=== PATIENT | female | born 1990 | race Caucasian/White ===

== ENCOUNTER → 2018-06-17 13:58 | Outpatient (CLI) | payer OTHER, SELFPAY ==
[2018-06-17 08:50] VITALS: BMI 25.4
[2018-06-19 15:49] LABS: HPV APTIMA, High Risk Negative (Negative)
== END ==
PROVIDERS: Referring Provider Nurse Practitioner Women's Health; Visit Provider Nurse Practitioner Women's Health
DX: Z12.4 Encounter for screening for malignant neoplasm of cervix (principal)
CPT/HCPCS: 87624; 88175; G0145

== ENCOUNTER → 2018-07-02 14:33 | Outpatient (CLI) | payer OTHER, SELFPAY ==
[2018-06-17 08:50] VITALS: BMI 25.4
--- NOTE | 2018-07-02 14:35 | US_ITS ---
STUDY: ULTRASOUND TRANSVAGINAL CLINICAL: Female, 28 years old. Pelvic pain TECHNIQUE: Transabdominal and Transvaginal (Transvaginal imaging performed for enhanced visualization of uterus and endometrium, and posterior adnexal structures). COMPARISON: None. FINDINGS: Uterus is retroflexed tilted toward the left, 6.9 x 4.9 x 3.4 cm, normal myometrial echotexture. Endometrium 3 mm, normal echotexture. Normal cervix. The right ovary measures 30 x 28 x 17 mm, appropriate vascular flow, several follicles present some of which are aligned in a string of pearls pattern along the periphery of the ovary. This could potentially be a manifestation of polycystic ovary syndrome. There is no right adnexal mass, suspicious cyst or free fluid. Left ovary 32 x 27 x 19 mm, appropriate vascular flow, several follicles, dominant follicle 1.3 cm. Multiple follicles aligned along the peripheral subserosal margin of the ovary. There is no left adnexal mass, suspicious cyst or free fluid. No cul-de-sac free fluid. US/Pelvic (Non ) IMPRESSION: Multi-follicular features of the ovaries. Nonspecific. Potentially a manifestation of polycystic ovary syndrome requiring correlation for other signs and symptoms. No acute intrapelvic process is evident. Electronically Signed: Jesus Weathers MD at 12:27 EST Tel , Service support ,
--- NOTE | 2018-07-02 14:35 | US_ITS ---
STUDY: ULTRASOUND TRANSVAGINAL CLINICAL: Female, 28 years old. Pelvic pain TECHNIQUE: Transabdominal and Transvaginal (Transvaginal imaging performed for enhanced visualization of uterus and endometrium, and posterior adnexal structures). COMPARISON: None. FINDINGS: Uterus is retroflexed tilted toward the left, 6.9 x 4.9 x 3.4 cm, normal myometrial echotexture. Endometrium 3 mm, normal echotexture. Normal cervix. The right ovary measures 30 x 28 x 17 mm, appropriate vascular flow, several follicles present some of which are aligned in a string of pearls pattern along the periphery of the ovary. This could potentially be a manifestation of polycystic ovary syndrome. There is no right adnexal mass, suspicious cyst or free fluid. Left ovary 32 x 27 x 19 mm, appropriate vascular flow, several follicles, dominant follicle 1.3 cm. Multiple follicles aligned along the peripheral subserosal margin of the ovary. There is no left adnexal mass, suspicious cyst or free fluid. No cul-de-sac free fluid. US/Transvaginal Non- IMPRESSION: Multi-follicular features of the ovaries. Nonspecific. Potentially a manifestation of polycystic ovary syndrome requiring correlation for other signs and symptoms. No acute intrapelvic process is evident. Electronically Signed: Jesus Weathers MD at 12:27 EST Tel , Service support ,
--- OUTSIDE RECORDS SUMMARY | 2018-09-03 15:21 | XMS RPT_ITS ---
:1990 Author Organization OH[facility] Care Team Providers Name Role Phone TAE HILARIO Referring Unavailable [place] Attending Unavailable [place] Attending Unavailable Chris, Kylie Referring Unavailable Primay Care Physicia, No Primary Care Unavailable ChrisKylie Attending Unavailable [place], Kylie Referring Unavailable Shira Sims Primary Care Unavailable PROBLEMS PROBLEMS DATE TYPE CONDITION / CODE ATTENDING STATUS SOURCE 06/17/2018 Unknown Z12.4 - Encounter Kylie Perez Active [place] for screening for [facility] neoplasm of Repository cervix / Z12.4(ICD-10) 06/17/2018 Unknown R10.2 - Pelvic [place], Molly Active [place] and perineal pain [facility] / R10.2(ICD-10) Hospital Repository 04/04/2017 Active Deep dyspareunia NA Active [facility] / N94.12(ICD-10) Other [place] Repository 08/26/2017 Active Pelvic and NA Active [facility] perineal pain / Other [place] R10.2(ICD-10) Repository PROCEDURES PROCEDURES No Procedure Records FoundRESULTS RESULTS PELVIC (NON ) Observed: 07/02/2018 Status: F Source: [facility] 2[facility] [place] [address] [place] [address] Pelvic (Non ) MR#: [id number] Acct: [id number] Name: GEMA ROMERO Rep #: [id number] : 1990 F 28 From: Jesus Weathers MD PCP: Shira Sims Status: REG CLI Study: Pelvic (Non ) Date of Exam: 07/02/18 Exam# [id number] Ordering Dr: Kylie Perez HOGSHEAD ROLLER-Shayy STUDY: ULTRASOUND TRANSVAGINAL CLINICAL: Female, 28 years old. Pelvic pain TECHNIQUE: Transabdominal and Transvaginal (Transvaginal imaging performed for enhanced visualization of uterus and endometrium, and posterior adnexal structures). COMPARISON: None. FINDINGS: Uterus is retroflexed tilted toward the left, 6.9 x 4.9 x 3.4 cm, normal myometrial echotexture. Endometrium 3 mm, normal echotexture. Normal cervix. The right ovary measures 30 x 28 x 17 mm, appropriate vascular flow, several follicles present some of which are aligned in a string of pearls pattern along the periphery of the ovary. This could potentially be a manifestation of polycystic ovary syndrome. There is no right adnexal mass, suspicious cyst or free fluid. Left ovary 32 x 27 x 19 mm, appropriate vascular flow, several follicles, dominant follicle 1.3 cm. Multiple follicles aligned along the peripheral subserosal margin of the ovary. There is no left adnexal mass, suspicious cyst or free fluid. No cul-de-sac free fluid. US/Pelvic (Non ) IMPRESSION: Multi-follicular features of the ovaries. Nonspecific. Potentially a manifestation of polycystic ovary syndrome requiring correlation for other signs and symptoms. No acute intrapelvic process is evident. Electronically Signed: Jesus Weathers MD at 12:27 EST Tel , Service support , CC: Shira Sims; ANNY Perez Adventure Therapist: Signed TRANSVAGINAL Observed: 07/02/2018 Status: F Source: [place] NON- 2:35 PM [facility] Imaging Services [address] [place] [address] Transvaginal Non- MR#: [id number] Acct: [id number] Name: GEMA ROMERO Rep #: [id number] : 1990 F 28 From: Jesus Weathers MD PCP: Shira Sims Status: REG CLI Study: Transvaginal Non- Date of Exam: 07/02/18 Exam# [id number] Ordering Dr: Kylie Perez HOGSHEAD ROLLER-C STUDY: ULTRASOUND TRANSVAGINAL CLINICAL: Female, 28 years old. Pelvic pain TECHNIQUE: Transabdominal and Transvaginal (Transvaginal imaging performed for enhanced visualization of uterus and endometrium, and posterior adnexal structures). COMPARISON: None. FINDINGS: Uterus is retroflexed tilted toward the left, 6.9 x 4.9 x 3.4 cm, normal myometrial echotexture. Endometrium 3 mm, normal echotexture. Normal cervix. The right ovary measures 30 x 28 x 17 mm, appropriate vascular flow, several follicles present some of which are aligned in a string of pearls pattern along the periphery of the ovary. This could potentially be a manifestation of polycystic ovary syndrome. There is no right adnexal mass, suspicious cyst or free fluid. Left ovary 32 x 27 x 19 mm, appropriate vascular flow, several follicles, dominant follicle 1.3 cm. Multiple follicles aligned along the peripheral subserosal margin of the ovary. There is no left adnexal mass, suspicious cyst or free fluid. No cul-de-sac free fluid. US/Transvaginal Non- IMPRESSION: Multi-follicular features of the ovaries. Nonspecific. Potentially a manifestation of polycystic ovary syndrome requiring correlation for other signs and symptoms. No acute intrapelvic process is evident. Electronically Signed: Jesus Weathers MD at 12:27 EST Tel , Service support , CC: Shira Sims; ANNY Perez Adventure Therapist: Signed PAP IG HPV APTIMA Collected: 06/17/2018 Status: F Source: [place] 16/18,45 9:30 AM [facility] [place] Order Comment: CYTOLOGY INFORMATION: - CLINICAL INFORMATION: - DATE LMP/MENOPAUSE: - COLLECTION VIAL: Thin Prep Vial - EVP BUSINESS DEVELOPMENT SOURCE: CERVICAL - COLLECTION TECHNIQUE: BRUSH/SPATULA Specimen Comment: [id number] Specimen Comment: Source.............Cervix Specimen Comment: No. of containers..01 ThinPrep Vial TYPE CODE TESTS RESULT OUT OF RANGE REFERENCE UNITS LAB L7400.0800 . Normal DIAGN Comment Result Comment: NEGATIVE FOR INTRAEPITHELIAL LESION AND MALIGNANCY. LAB L7400.0900 . Normal ADEQ Comment Result Comment: Satisfactory for evaluation. Endocervical and/or squamous metaplastic cells (endocervical component) are present. LAB L7400.1400 . Normal PERFORM Comment Result Comment: Katherine Duong, Winter Sports Manager LAB L7400.2575 . Normal TEST METHOD Comment Result Comment: This liquid based ThinPrep(R) pap test was screened with the use of an image guided system. LAB L7400.2600 . Normal . COMM LAB L7400.2700 . Normal PAPSMR Comment Result Comment: The Pap smear is a screening test designed to aid in the detection of premalignant and malignant conditions of the uterine cervix. It is not a diagnostic procedure and should not be used as the sole means of detecting cervical cancer. Both false-positive and false-negative reports do occur. LAB L7400.2760 Negative Normal HPV APTIMA, Negative HR Result Comment: This test detects fourteen high-risk HPV types (16/18/31/33/35/39/45/ 51/52/56/58/59/66/68) without differentiation. Performed at: [address] [id number] Rubber Extrusion Machine Operator: Ana Rivera MD, Phone: [phone] Performed at: =G - [facility] [place], [place] [id number] Rubber Extrusion Machine Operator: Ana Rivera MD, Phone: [phone] Performed By: #### L7400.0280 #### [facility] (refer to report for specific site) refer to report for address and phone number UMBRELLA TIPPER OFFICE VISIT Observed: 06/17/2018 Status: F Source: [place] REPORT 9:23 AM [facility] [place] [place] [facility] [address] [place] [address]. [address] [place] [address] OFFICE VISIT Date of Service: 06/17/18 MR#: [id number] Acct: [id number] Name: GEMA ROMERO Rep #: [id number] : 1990 Provider: ANNY Perez Age/Sex: 28/F Location: [facility] Status: Signed Intake Vital Signs06/17/18 Height 5 ft 3 in 06/17/18 Weight: 144 lb 06/17/18 Body Mass Index (BMI) 25.4 06/17/18 Blood Pressure 128/88 H Intake Visit Reasons: PELVIC PAIN, ABNORMAL BLEEDING Backup Operator Required: No Is patient in pain?: No Allergies No Known Allergies Allergy (Verified 06/17/18 08:44) Medications etonogestrel 68 mg subdermal implant 1 implant SUBDERMAL ONCE 06/17/18 [History Confirmed 06/17/18] Is last menstrual period known: Yes Last Menstral Period: 05/26/18 Post menopausal: No Patient : No : No PFSH Family History Grandmother Breast cancer Father Heart disease Social History Smoking Status: Never smoker alcohol intake: current alcohol intake frequency: holidays/special occasions only substance use type: does not use caffeine: Yes what type of physical activity do you participate in: walking frequency: 1-2 times per week seatbelt use: sometimes do you feel safe at home: Yes 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 Has nexplanon and needs removed October 2018. Has had irregular bleeding since placement and wants removed. She is also having pelvic pain off and on X 2 years. States varies in severity and also can occur with intercourse. and denies STD concern Last EVP BUSINESS DEVELOPMENT exam about 3 years ago in Telephone. Female Reproductive History Last Menstral Period: 05/26/18 Pregancy History 2 Elective abortions Hx Para 2 Spontaneous abortions Past Pregnancies Del. DatName GA/WeeksOutcome Route Bt WeigInfant GLabor LgAnesthesDel LocaProviderFOB e ht en ia tn 07/27/13Keegan 42 live birNSVD 7lbs 11oMale epiduralMedina [facility] Delivery Date: 07/13/15 On 06/17/18 @ 08:50 Elaina Baum No issues during or delivery. Delivery Date: 07/27/13 On 06/17/18 @ 08:49 Elaina Baum No issues during or delivery. ROS Const Constitutional: Reports system reviewed and no additional complaints, except as docu Cardio Card: Reports system reviewed and no additional complaints, except as docu Resp Resp: Reports system reviewed and no additional complaints, except as docu GI GI: Denies abdominal pain or change in bowel habits : Reports as per HPI and pelvic pain Exam Const General: cooperative, no acute distress Nutritional Appearance: well nourished Orientation: oriented x3 HENMT Head: normal to inspection Ears: hearing grossly normal bilaterally Nose: external nose normal Eyes General: appearance normal, both eyes and all related structures Neck Neck: normal visual inspection Neck mass: No Thyroid: thyroid normal Resp Effort AND Inspection: normal respiratory effort GI Palpation: soft, nontender External Female Exam: normal external appearance, normal appearance of the urethra Urethra: normal appearance of the urethra Speculum Exam - Vagina: normal appearance of the vagina, normal vaginal discharge Speculum Exam - Cervix: normal appearance of the cervix Bimanual Exam- Vagina AND Uterus: normal bimanual exam, uterine size normal, uterine shape normal, uterus non-tender Bimanual Exam- Adnexa, other: normal adnexae, no adnexal masses, adnexae non-tender Assessment AND Plan Problems 1. Encounter for gynecological examination with abnormal finding Z01.411 2. Pap smear for cervical cancer screening Z12.4 3. General counselling and advice on contraception Z30.09 4. Pelvic pain R10.2 5. Irregular menses N92.6 Plan Completed breast and pelvic exam Reviewed diet and exercise Pap thin prep pap with HPV ULtrasound Contraception arrange removal of nexplanon with Dr. Mcgarry. Will use condoms in interim. Discussed other contraceptive options but will wait on US results. RTO 1 year, prn with problems Kylie Perez FOOD SERVICE ASSOCIATE Orders Orders: Coding Level of Care Code Off vis,new,prev 18-39yrs Diagnoses Encounter for gynecological examination with abnormal finding Z01.411 Gynecological examination findings: abnormal findings PRESENT Pap smear for cervical cancer screening Z12.4 General counselling and advice on contraception Z30.09 Pelvic pain R10.2 Irregular menses N92.6 06/17/18 0923 <Electronically signed by Kylie HARRISON> Date Kylie HARRISON Cosigner Signature: Date (if applicable) CC: US DOPPLER COMPLETE Observed: 08/26/2017 Status: F Source: [place] 8:26 AM CLINIC OTHER CAMPUS REPOSITORY * * *Final Report* * * DATE OF EXAM: Aug 26 2017 8:26AM [place] 1033 - US DOPPLER COMPLETE / PROCEDURE REASON: multiple diagnoses * * * * Physician Interpretation * * * * EXAMINATION: TRANSVAGINAL PELVIC ULTRASOUND HISTORY: Pain TECHNIQUE: Sonography of the pelvis was performed by transvaginal technique. Images were obtained and stored in a permanent archive. M: UFP_1 COMPARISON: 04/15/2017 ultrasound RESULT: Uterus size: 6.5 x 3.5 x 3.4 cm -Orientation: Retroverted -Myometrium: 3 x 2 x 2 mm nonshadowing hyperechoic density adjacent to anterior endometrium at region of junction of body and fundus. -Endometrial echo complex: 0.5 cm -Cervix: normal Right ovary: 2.6 x 2.0 x 2.9 cm Normal sonographic appearance. Arterial and venous flow is present throughout the ovary on color Doppler imaging with normal spectral waveforms. Left ovary: 2.4 x 1.7 x 2.3 cm Normal sonographic appearance. Arterial and venous flow is present throughout the left ovary on color Doppler imaging with normal spectral waveforms. Pelvis free fluid: None. IMPRESSION: History millimeter hyperechoic focus adjacent to endometrium may represent a small myometrial calcification. Exam otherwise unremarkable. Adventure Therapist: [facility] Transcribe Date/Time: Aug 26 2017 8:48A Dictated by : MANSOOR FLORES MD This examination was interpreted and the report reviewed and electronically signed by: MANSOOR FLORES MD on Aug 26 2017 8:55AM EST [id number] US FEMALE PELVIS Observed: 08/26/2017 Status: F Source: [place] TRANSVAG 8:26 AM CLINIC OTHER CAMPUS REPOSITORY * * *Final Report* * * DATE OF EXAM: Aug 26 2017 8:26AM U 1060 - US FEMALE PELVIS TRANSVAG / PROCEDURE REASON: multiple diagnoses * * * * Physician Interpretation * * * * EXAMINATION: TRANSVAGINAL PELVIC ULTRASOUND HISTORY: Pain TECHNIQUE: Sonography of the pelvis was performed by transvaginal technique. Images were obtained and stored in a permanent archive. M: UFP_1 COMPARISON: 04/15/2017 ultrasound RESULT: Uterus size: 6.5 x 3.5 x 3.4 cm -Orientation: Retroverted -Myometrium: 3 x 2 x 2 mm nonshadowing hyperechoic density adjacent to anterior endometrium at region of junction of body and fundus. -Endometrial echo complex: 0.5 cm -Cervix: normal Right ovary: 2.6 x 2.0 x 2.9 cm Normal sonographic appearance. Arterial and venous flow is present throughout the ovary on color Doppler imaging with normal spectral waveforms. Left ovary: 2.4 x 1.7 x 2.3 cm Normal sonographic appearance. Arterial and venous flow is present throughout the left ovary on color Doppler imaging with normal spectral waveforms. Pelvis free fluid: None. IMPRESSION: History millimeter hyperechoic focus adjacent to endometrium may represent a small myometrial calcification. Exam otherwise unremarkable. Adventure Therapist: [facility] Transcribe Date/Time: Aug 26 2017 8:48A Dictated by : MANSOOR FLORES MD This examination was interpreted and the report reviewed and electronically signed by: MANSOOR FLORES MD on Aug 26 2017 8:55AM EST [id number] Observed: 08/19/2017 Status: COMPLETED Source: [place] 12:00 AM [facility] REPOSITORY Telephone (OBGMEM) SARAH ROMEROLEE Julia ([id number]) 1990 F Date Time Provider Department 08/19/17 TAE HILARIO OBLEVI During your visit today, we recorded the following information about you: Zoraida Olivo Psr 08/19/2017 11:34 AM Signed Patient is calling today to advise she is still having pain regarding her bilateral ovarian cysts. Patient had an ultrasound in April. Please advise. Zoraida Olivo Psr Zoraida Olivo Psr 08/23/2017 8:59 AM Signed Patient is calling again today to discuss her pain and what she should do. Zoraida Olivo Psr Tae Hilario MD 08/23/2017 1:59 PM Signed Patient did not keep f/u appointment after last visit. Previous hx of cysts and ruptured cysts and dyspareunia. Nexplanon in for 1 more year. Plan: Please sched pelvic U/S for evaluatuion. Anaprox for pain, script sent in. Patient may do phone f/u for u/s results. Tae Hilario MD The following approved medication requests have been transmitted electronically. Signed Prescriptions Disp Refills Naproxen Sodium (ANAPROX DS) 550 mg tablet 40 tablet 2 Sig: Take 1 tablet by mouth twice daily with meals. FOR PAIN. Authorizing Provider: TAE HILARIO MD Jennifer M Sim Psr 08/23/2017 3:28 PM Signed Spoke to patient. She wanted to know if she should leaf size picker the meds. Advised as written below and scheduled for an ultrasound on Saturday08-26-17. Tae Hilario MD 08/26/2017 11:16 PM Signed Please notify the patient that her ultrasound is negative. There are no ovarian cysts or evidence of free fluid. She can schedule a follow-up as needed. Thank you Tae Hilario M.D. Allergies As of Date: 08/19/2017 (No Known Allergies) Date Reviewed: 06/18/2017 Reviewed by: Zoraida (Rn) LORENA Jama - Fully Assessed Reason for Visit: Ovarian Cyst [288] Primary Visit Diagnosis:Adnexal pain [R10.2] Other Visit Diagnosis:Deep dyspareunia [N94.12] Order(s): FEMALE PELVIS TRANSVAG [[id number]] Order #: [id number] FUTURE Naproxen Sodium (ANAPROX DS) 550 mg tabletTake 1 tablet by mouth twice daily with meals. FOR PAIN.Disp: 40 tabletRfl: 2 Prescriptions as of 08/19/2017 Sig: NAPROXEN SODIUM 550 MG TABLET Take 1 tablet by mouth twice * Problem List As Of Date 08/19/2017 Noted Resolved Supervision of other normal [Z34.80] INVALID FOR*09/03/2013 Irregular uterine contractions [O62.2] INVALID FOR*07/25/2013 related carpal tunnel syndrome, antep*INVALID FOR* BV (bacterial vaginosis) [N76.0, B96.89] INVALID FOR*12/03/2014 Post-dates [O48.0] INVALID FOR* Gestational hypertension w/o significant protei*INVALID FOR*12/03/2014 Left ovarian cyst [N83.202] INVALID FOR* Dyspareunia [JEL7100] INVALID FOR*12/03/[address] [Z97.5] INVALID FOR* Anorgasmia of female [F52.31] INVALID FOR* Deep dyspareunia [N94.12] INVALID FOR* Prescriptions ordered this encounter Disp Refills Start End NAPROXEN SODIUM 550 MG TABLET 40 t* 2 08/23/2017 Route: ORAL Sig: Take 1 tablet by mouth twice daily with meals. FOR PAIN. Encounter Status:Closed by ALISSA HOWARD on 08/23/17 ALLERGIES ALLERGIES DATE TYPE / CODE NAME / CODE REACTION SEVERITY SOURCE 06/17/2018 Drug No Known Unknown [facility] Allergy/416 Allergies/E92638 Hospital 766629(SNOM 0388(RXNORM) Repository ED CT) Drug NO KNOWN [facility] Class/15510 ALLERGIES Other [place] 1003(SNOMED Repository CT) ENCOUNTERS ENCOUNTERS ADMIT/DISCHARGE ACCOUNT ADMITTING ENCOUNTER LOCATION SOURCE NUMBER CLASS 07/02/2018 [id number] Ambulatory [facility] ing:US Repository 06/17/2018 [id number] [facility] ing:LABSPEC Repository 06/17/2018/06/17/19 [id number] Ambulatory BMSBuilding:B [place] [address] Repository 08/26/2017 [id number] Ambulatory [facility] Other [place] Repository PAYERS PAYERS ENCOUNTER GUARANTOR PAYER SUBSCRIBER SOURCE 07/02/2018 GEMA Dumont Primary GEMA N [place] [id number] Insurance:MEDICAL MILLERDOB: [facility] [id number] Hospital [address]Mbt: (330) Number: Repository [phone] () [id number] Date:[id number] [address] [place], [place] [address]WP: 07/02/2018 Secondary NOT GIVENUNK Satya Insurance:SELF PAY [facility] Number: Effective Repository Date:2018-06-30 06/17/2018 GEMA Dumont Primary GEMA N [place] [id number] Insurance:MEDICAL MILLERDOB: [facility] [id number] Hospital [address]Avk: (330) Number: Repository [phone] () [id number] Date:[id number] [address] [place] [id number]: 06/17/2018 Secondary NOT GIVENUNK [place] Insurance:SELF PAY [facility] Number: Effective Repository Date:2018-06-17 06/17/2018 GEMA Dumont Primary GEMA N [place] [id number] Insurance:MEDICAL MILLERDOB: [facility] [id number] Hospital [address]Lha: (330) Number: Repository [phone] ) [id number] Date:[id number] [address] [address]TE: 06/17/2018 Secondary NOT GIVENUNK [place] Insurance:SELF PAY [facility] Number: Effective Repository Date:2018-06-17
== END ==
PROVIDERS: Family Provider Family Medicine; PCP Family Medicine; Referring Provider Nurse Practitioner Women's Health; Visit Provider Nurse Practitioner Women's Health
DX: R10.2 Pelvic and perineal pain (principal)
CPT/HCPCS: 76830; 76856; 93976

== ENCOUNTER 2021-06-26 12:26 | Outpatient (CLI) | payer OTHER, SELFPAY ==
--- NOTE | 2021-06-26 12:31 | US_ITS ---
STUDY: ULTRASOUND OF THE FEMALE PELVIS - COMPLETE REASON FOR EXAM: Female, 31 years old. AUB LMP: 06/16/2021. TECHNIQUE: Transabdominal and Transvaginal TECHNICAL QUALITY: Adequate. COMPARISON: Comparison is made with prior study dated 07/02/2018. FINDINGS: The uterus is retroverted and is in a midline position. The uterus measures 8.8 cm x 4.8 cm x 3.7 cm. There is a Nabothian cyst of the cervix. The endometrium measures 7.7 mm in thickness, and is heterogeneous (striated). There is no demonstrated endometrial mass. There is no demonstrated myometrial mass. I.U.D. - The patient does not have an I.U.D. The right ovary is visualized. The right ovary measures 3.3 cm x 2.2 cm x 1.8 cm. There is no right ovarian cyst or ovarian mass. There is no visualized right adnexal mass or complex lesion. There is normal arterial and normal venous vascularity. The left ovary is visualized. The left ovary measures 3.9 cm x 2.8 cm x 2.1 cm. There is no left ovarian cyst or ovarian mass. There is no visualized left adnexal mass or complex lesion. There is normal arterial and normal venous vascularity. There is no fluid in the cul-de-sac. The pre void volume of the bladder was 406 ml. US/Pelvic (Non ) IMPRESSION: Normal female pelvis. Electronically Signed: Yang Pryor MD at 13:41 EST , Service support ,
--- NOTE | 2021-06-26 12:31 | US_ITS ---
STUDY: ULTRASOUND OF THE FEMALE PELVIS - COMPLETE REASON FOR EXAM: Female, 31 years old. AUB LMP: 06/16/2021. TECHNIQUE: Transabdominal and Transvaginal TECHNICAL QUALITY: Adequate. COMPARISON: Comparison is made with prior study dated 07/02/2018. FINDINGS: The uterus is retroverted and is in a midline position. The uterus measures 8.8 cm x 4.8 cm x 3.7 cm. There is a Nabothian cyst of the cervix. The endometrium measures 7.7 mm in thickness, and is heterogeneous (striated). There is no demonstrated endometrial mass. There is no demonstrated myometrial mass. I.U.D. - The patient does not have an I.U.D. The right ovary is visualized. The right ovary measures 3.3 cm x 2.2 cm x 1.8 cm. There is no right ovarian cyst or ovarian mass. There is no visualized right adnexal mass or complex lesion. There is normal arterial and normal venous vascularity. The left ovary is visualized. The left ovary measures 3.9 cm x 2.8 cm x 2.1 cm. There is no left ovarian cyst or ovarian mass. There is no visualized left adnexal mass or complex lesion. There is normal arterial and normal venous vascularity. There is no fluid in the cul-de-sac. The pre void volume of the bladder was 406 ml. US/Transvaginal Non- IMPRESSION: Normal female pelvis. Electronically Signed: Yang Pryor MD at 13:41 EST , Service support ,
== END 2021-06-26 23:59 | disposition short-term general hospital (02) ==
LOC: OPUS 12:26
PROVIDERS: PCP Family Medicine; Referring Provider Nurse Practitioner Women's Health; Visit Provider Nurse Practitioner Women's Health
DX: N92.1 Excessive and frequent menstruation with irregular cycle (principal)
CPT/HCPCS: 76830; 76856

== ENCOUNTER 2022-03-06 07:10 | Day surgery (SDC) | payer OTHER, SELFPAY ==
--- NOTE | 2022-03-05 16:00 | HP.PCM_ITS ---
History and Physical Date of Admission: 03/06/22 Acct: [id number] Name:GEMA POWERS History and Physical for 03/06/22 Intake Vital Signs ? 01/25/2211:03 01/25/2211:03 Height 5 ft 3 in 5 ft 3 in Weight: 134 lb 6 oz ? BMI 23.8 ? BP 122/81 H ? Intake Visit Reasons:?Consult Tubal Dinkey Brakeman Required: No Is patient in pain?: No Allergies No Known Allergies Allergy (Verified 01/25/22 11:03) Medications NK? 01/25/22 [History Confirmed 01/25/22] Post menopausal: No Patient : No : No PFSH Medical History? Contraceptive management Family History? Grandmother Breast cancerFather Heart disease Social History? Smoking Status:? Never smoker alcohol intake:? current alcohol intake frequency: holidays/special occasions only substance use type:? does not use caffeine:? Yes what type of physical activity do you participate in:? walking frequency:? 1-2 times per week seatbelt use:? sometimes do you feel safe at home:? 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 who presents for discussion about heavy menses and desire for permanent sterilization. She is not interested in OCPs or anthything that will cause weight gain Pregancy History ? ? ? 2 ? Elective abortions ? Hx Para ? ? ? 2 ? Spontaneous abortions ? Hx # Term Pregnancies ? Ectopic pregnancies ? Hx # Pregnancies ? Multiple births ? # of living children ? Past Pregnancies Del. Date Name GA/Weeks Outcome Route Bth Weight Infant Gen Labor Lgth Anesthesia Del Locatn Provider FOB 07/27/13 Conrad 42 live - full term 7lbs 11oz Male ? epidural [facility] Dr. Tom Campos 07/13/15 Racquel 41 live - full term 7lbs 15oz Female ? epidural [facility] Dr. Tom Campos Delivery Date: 07/27/13? Last Updated by: Elaina Baum ? ? ? No issues during or delivery. Delivery Date: 07/13/15? Last Updated by: Elaina Baum ? ? ? No issues during or delivery. ROS Const ROS Unobtainable: All systems reviewed & are unremarkable except as noted in H Resp Resp: Reports system reviewed and no additional complaints, except as documented; Denies cough GI GI: Reports as per HPI Psych Psych: Reports system reviewed and no additional complaints, except as documented Exam Const General: cooperative, healthy appearing, comfortable and no acute distress Resp Effort & Inspection: normal respiratory effort Skin General: no rashes or lesions noted Psych Appearance: grossly normal Speech and Movement: speech and movement normal Coding Level of Care Code Off vis,est,level 4 Diagnoses Contraceptive management? Z30.9 Menorrhagia with irregular cycle? N92.1 Assessment and Plan Assessment and Plan (1) Contraceptive management: ?Status:?Acute ?Comment: No PA required for Mirena device and placement.? call reference # [id number] (2) Menorrhagia with irregular cycle: ?Status:?Acute Plan After discussing the patient's diagnosis and treatment plan options, patient wishes to proceed with surgical management. Plan to proceed with a laparoscopic bilateral salpingectomy, placement of mirena iud. ?I have discussed with the patient the risks, benefits, and alternatives of the procedure which include but are not limited to risks of anesthesia, bleeding, infection, possible damage to bowel, bladder, or surrounding vasculature which could lead to additional surgery to evaluate any complications.? Patient agrees to procedure and wishes to proceed.? ACOG/uptodate references given for additional information regarding procedure.?
[2022-03-06 07:53] VITALS: BP 134/78; PULSE 71; RESP 16; TEMP 36.6; O2SAT 100; BMI 25.0
[2022-03-06 08:08] LABS: Internal QC Validated? YES +Cl - CLEAR BKGD; Pregnancy, Urine Negative Negative
[2022-03-06] MEDS: Lactated Ringers 1,000 ML 125 ML IV ×2 (08:15→09:30)
[2022-03-06 08:24] LABS: Hematocrit 38.9 % (37-47); Mean Corp Hgb Conc 33.4 g/dL (32-36); Mean Corpuscular Hgb 32.4 pg (27.0-32.0); Mean Platelet Vol. 9.2 fl (6.2-12.0); Platelet Count 312 K/mm3 (150-450); RBC Distribution Width CV 11.7 % (11.6-14.6); RBC Distribution Width SD 42.3 fl (35.1-43.9); Red Blood Count 4.01 M/mm3 (4.2-5.4)
--- NOTE | 2022-03-06 08:45 | FALS_PTH ---
PATIENT: GEMA ROMERO LOC: [facility] [place] U[place][id number] AGE/SX: 31/F ROOM: RE03/06/[address]: Dr. Olamide Guevara DO : 1990 BED: DIS: 03/06/2022 SPEC #: [id number] RECD: 03/06/22 11:53 STATUS: GINA REBridget #: [id number] ARJUN: 03/06/22 08:[address]: Olamide Guevara DEPT: SURGICAL PATHOLOGY RECD BY: Ashley Lynn ENTERED: 03/06/22 12:33 SP TYPE: FALL TUBES OTHR DR: Dr. Shira Sims DO Tissues: Fallopian tube Procedures: Surgery Specimen Level II Surgery Specimen Level IV HEADER OPERATION: Laparoscopic salpingectomy, Mirena intrauterine device insertion PRE-OP DIAGNOSIS: Contraceptive management, menorrhagia with irregular cycle TISSUE SUBMITTED: Bilateral fallopian tubes MICROSCOPIC DIAGNOSIS Right and left fallopian tubes, bilateral salpingectomies: Complete segments of fallopian tubes. One fallopian tube with benign paratubal cyst. AM:cici 03/07/2022 MICROSCOPIC DESCRIPTION Slides are reviewed. GROSS DESCRIPTION Received in fixative is one container labeled with the patient's name and designated bilateral fallopian tubes. The specimen consists of bilateral fallopian tubes including fimbrial ends measuring 5 cm in length and 0.8 cm in diameter and 6.5 cm in length and 0.5 cm in diameter. The fallopian tubes are not identified as right or left. One of the fallopian tubes show a paratubal cyst measuring 0.7 cm in greatest dimension. Sections reveal unremarkable cut surfaces. Physical Therapist Assistant sections are submitted in two cassettes as follows: 1 ? one fallopian tube and paratubal cyst, 2 ? second fallopian tube. / SJ:cici 03/06/2022 TC:5 CPT: 81996, 90406
--- NOTE | 2022-03-06 08:58 | DCINST_ITS ---
Discharge Instructions Diet Discharge Diet: No restrictions Activity Discharge Activity: Return to Normal Activity, May Not Drive (for two weeks or while taking narcotic pain medications.), May Shower and May Take a Tub Bath (in 7 days) May resume sexual activity in: 1 week Weight Bearing Status: Full weight bearing Dressing / Incision Call your doctor if you observe: Using more than 1 pad per hour, Shortness of breath, Chest pain and Uncontrolled pain Suture Line Care: Avoid Pulling/Pushing and Avoid Pinching/Bending Remove Dressing in: 1 week (if present) Cleanse incision/area with: Soap & Water and Keep Dressing Clean & Dry Follow Up Care Please Follow Up With: Olamide Guevara DO When: Call to make an appointment with your doctor for a follow up incision check in 1-2 weeks. Test Results: Test results from this visit will be discussed in further detail at your follow- up appointment, if applicable. Discharge Plan Admission Primary Reason for Your Visit: laparoscopic bilateral salpingectomy, placement of mirena IUD Attending Provider: Olamide Guevara Primary Care Provider: Shira Sims Discharge Orders/Prescriptions Prescriptions: New ibuprofen 800 mg tablet 800 mg PO Q8H PRN (Reason: pain) 7 Days Qty: 15 0RF oxycodone-acetaminophen [Percocet] 5-325 mg tablet 1 tab PO Q4H PRN (Reason: pain) 7 Days Qty: 14 0RF Referrals / Follow Up: Shira Sims DO [Primary Care Provider] - Disposition Disposition (needs filled in before D/C Order can be placed): Home, Self Care
--- NOTE | 2022-03-06 09:02 | OP.PCM_ITS ---
Operative Report Date of Procedure: 03/06/22 preoperative diagnosis: desires permanent sterilization, menorrhagia postoperative diagnosis: desires permanent sterilization, menorrhagia surgery: laparoscopic bilateral salpingectomy, placement of Mirena IUD surgeon: Dr. Olamide Guevara DO School Psychology Specialist: lanie Harris EBL: 5 cc Anesthesia: general endotracheal intubation Complications: none Details of the procedure: Patient was taken in the operating room and was placed under general anesthesia was prepped and draped in normal sterile fashion in the dorsal lithotomy position. Bladder was drained of clear urine and SCDs were on preoperatively. Uterus was sounded and a uterine manipulator was placed after dilating. Attention was then paid to the abdominal portion of the procedure and the umbilicus was elevated and injected with Marcaine. A 5mm trocar was inserted into the abdomen under direct visualization using the laparoscope. The abdomen was insufflated with CO2 gas and a left lower quadrant 5 mm port and a mini grasper were placed suprapubically under direct visualization. Uterus was well visualized and bilateral fallopian tubes identified and bilateral tubes were elevated and transecting across the mesosalpinx and the attachment to the uterine corpus bilaterally the tubes were removed without complication. Excellent hemostasis was noted. Fallopian tubes were removed through the lower port sites without complication. Liver and upper abdomen were visualized notably within normal limits and no other gross abnormalities were seen in the abdomen. All instruments removed from the abdomen after gas was desufflated. Port sites were closed with 3-0 Monocryl Steri's and op sites were applied. Attention was turned back to the vagina. A weighted speculum was placed in the vagina and the manipulator was removed. The uterus was sounded to 8 cm. The mirena IUD was inserted in the usual sterile fashion up to the fundus. The strings were trimmed 3 cm from the cervix and the single toothed tenaculum was removed. All instruments removed from the vagina and patient was awoken and taken recovery in stable condition. Multi Select Codes Urinary/Genital Urinary/Genital CPT Codes: 50218 Laproscopic BS/O and Other Procedure See Report (placement of mirena Intrauterine device)
[2022-03-06] MEDS: Sugammadex Sodium 200 MG/2 ML VIAL IV (09:28)
[2022-03-06 09:35] VITALS: BP 121/85; BP 134/78; PULSE 72; RESP 16; TEMP 36.2; O2SAT 100
[2022-03-06 09:45] VITALS: BP 121/85; BP 134/78; PULSE 80; RESP 16; O2SAT 100
--- NOTE | 2022-03-06 09:53 | SUR.PHASEI ---
WRITTEN WORK EXCUSE GIVEN TO PATIENT FROM DR. FOX; 03/06/22- 03/11/22, RETURN 03/12/2022
[2022-03-06 10:00] VITALS: BP 114/74; BP 134/78; PULSE 64; RESP 16; O2SAT 100
[2022-03-06 10:12] VITALS: BP 116/74; BP 134/78; PULSE 67; RESP 16; TEMP 35.8; O2SAT 100
[2022-03-06 10:31] VITALS: BP 134/78
== END 2022-03-06 10:39 | disposition home or self-care (01) ==
LOC: SDC 07:21 → AC 07:21
PROVIDERS: PCP Family Medicine; Referring Provider Obstetrics & Gynecology; Visit Provider Obstetrics & Gynecology
PROC: (CPT 58661; principal; 2022-03-06 08:30)
DX: Z30.2 Encounter for sterilization (principal); Z30.430 Encounter for insertion of intrauterine contraceptive device; N92.1 Excessive and frequent menstruation with irregular cycle; N83.8 Other noninflammatory disorders of ovary, fallopian tube and broad ligament
CPT/HCPCS: 58661; 58300; 81025; 85027; 88302; 88305; J7120; J2405

== ENCOUNTER → 2022-05-17 | Outpatient (CLI) | payer OTHER, SELFPAY | END | disposition home or self-care (01) | LOC: LABSPEC 16:17 | PROVIDERS: PCP Family Medicine; Referring Provider Nurse Practitioner Women's Health; Visit Provider Nurse Practitioner Women's Health | DX: N89.8 Other specified noninflammatory disorders of vagina (principal) | CPT/HCPCS: 87070; 87205 ==

== ENCOUNTER → 2023-04-18 | Outpatient (CLI) | payer OTHER, SELFPAY | END | disposition home or self-care (01) | LOC: LABSPEC 13:07 | PROVIDERS: PCP Family Medicine; Referring Provider Nurse Practitioner Women's Health; Visit Provider Nurse Practitioner Women's Health | DX: N89.8 Other specified noninflammatory disorders of vagina (principal) | CPT/HCPCS: 87070; 87205 ==

== ENCOUNTER → 2025-04-27 | Outpatient (CLI) | payer OTHER, SELFPAY ==
--- OUTSIDE RECORDS SUMMARY | 2025-04-27 19:22 | XMS RPT_ITS | CCD ---
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 Shira Sims Primary Care Provider Bethany, Dr. Shira Salinas Referring Provider Dr. Olamide Guevara Attending Provider [phone] Dr. Olamide Guevara Referring Provider [phone] Dr. Olamide Guevara Other Provider Dr. Shira Sims Primary Care Provider Dr. Olamide Guevara Attending Provider [phone] Dr. Olamide Guevara Referring Provider [phone] Dr. Olamide Guevara Other Provider Dr. Shira Sims Referring Provider Chris MCCORMICK, CHRISTY Espinal Attending Provider [phone] Dr. Shira Sims Primary Care Provider Dr. Shira Sims Referring Provider Chris CARGO BROKER, ANNY-Shayy Espinal Attending Provider [phone] Shira Sims Primary Care Unavailable Shira Sims Referring Unavailable Olamide Guevara Attending UnavailEli Campoverde Attending Unavailable Shira Sims Referring Unavailable Shira Sims Primary Care Unavailable Shira Sims Referring Unavailable Shira Sims Primary Care Unavailable Kylie Perez Attending Unavailable Kirkland, Kylie Referring Unavailable Esterle, Shira M Primary Care Unavailable Kirkland, Kylie Attending Unavailable Esterle, Shira M Primary Care Unavailable Chris, Kylie Referring Unavailable Kirkland, Kylie Attending Unavailable Chris, Kylie Referring Unavailable Kirkland, Kylie Attending Unavailable Esterle, Shira M Primary Care Unavailable Esterle, Shira M Primary Care Unavailable Esterle, Shira M Referring Unavailable Kirkland, Kylie Attending Unavailable Esterle , Shira Salinas Primary Care Provider Madai SANCHEZ, Maykel Stratton Primary Care Provider Madai SANCHEZ, Maykel Stratton Primary Care Provider Shira Sims MD Primary Care Provider ESTERLE, SHIRA M Primary Care Unavailable ESTERLE, SHIRA M Primary Care Unavailable CONKLE-LAGROUX, MICHAEL Attending Unavaila ble MANNY, SVETLANA Prado Referring Unavailable ESTERLE, SHIRA M Primary Care Unavailable MIKULSKI, JAILENE Referring Unavailable ESTERLE, SHIRA M Primary Care Unavailable SELF Referring Unavailable ESTERLE, SHIRA M Primary Care Unavailable MIKULSKI, JAILENE Attending Unavailable ESTERLE, SHIRA M Primary Care Unavailable ESTERLE, SHIRA M Primary Care Unavailable ESTERLE, SHIRA M Primary Care Unavailable CONKLE-MILLYX, MICHAEL Attending Unavaila ble ESTERLE, SHIRA Primary Care Unavailable ESTERLE, SHIRA Primary Care Unavailable Medications Current Medications Medication Drug Class(es) Dates Sig (Normalized) Sig (Original) amoxicillin 875 mg / clavulanate 125 mg oral tablet (1 source) Penicillin-class Antibacterial Start: 4 End: 4 take 1 tablet by mouth twice daily amoxicillin-clavulan ate potassium (AUGMENTIN) 875-125 mg per tablet Indications: Acute sinusitis, recurrence not specified, unspecified location Take 1 tablet by mouth two times a day for 7 days. 14 tablet 0 08/07/2023 08/14/2023 Active Comment on above: Take 1 tablet by jewell th two times a day for 7 days. amphetamine aspartate 3.75 mg / amphetamine sulfate 3.75 mg / dextroamphetamine saccharate 3.75 mg / dextroamphetamine sulfate 3.75 mg oral tablet (2 sources) Central Nervous System Stimulant Start: 2 take 1 tablet by mouth once daily Dextroamphetamine-Am phetamine (Adderall) 15 mg tablet Active 15 MG PO DAILY April 25, 2022 12:00am benzonatate 200 mg oral capsule (3 sources) Non-narcotic Antitussive Start: 4 take 1 capsule by mouth three times daily as needed Benzonatate 200 mg capsule Indications: Acute sinusitis, recurrence not specified, unspecified location Take 1 capsule by mouth three times a day as needed. 30 capsule 08/07/2023 Active Comment on above: Take 1 capsule by mo [facility] three times a day as needed. levonorgestrel 0.082278 mg/hr intrauterine system (7 sources) Progestin, Progestin-containi ng Intrauterine Device Start: 2 levonorgestrel (MIRENA) 21 mcg/24 hours (8 yrs) 52 mg IUD Levonorgestrel (Mirena) 20 mcg/24 hours (8 yrs) 52 mg intrauterine device Active 1 DEVICE INTRA-UTER ONCE April 25, 2022 12:00am as a single dose 04/25/2022 Active Comment on above: Levonorgestrel (Elvie na) 20 mcg/24 hours (8 yrs) 52 mg intrauterine device Active 1 DEVICE INTRA-UTER ONCE April 25, 2022 12:00am as a single dose lisdexamfetamine dimesylate 30 mg oral capsule (5 sources) Central Nervous System Stimulant Start: 3 take 2 capsules by mouth once daily lisdexamfetamine (VYVANSE) 30 mg capsule 2 CAPS ORALLY ONCE A DAY 30 DAYS 04/12/2023 Active Comment on above: 2 CAPS ORALLY ONCE A DAY 30 DAYS Completed/Discontinued Medications Medication Drug Class(es) Dates Sig (Normalized) Sig (Original) acetaminophen 325 mg / oxyCODONE hydrochloride 5 mg oral tablet (3 sources) Opioid Agonist Start: 03-06-2022 End: 04-25-2022 take 1 tablet by mouth every four hours Oxycodone-Acetamin ophen (Percocet) 5-325 mg tablet Discontinued 1 TABLET PO Q4H 14 7 March 06, 2022 April 25, 2022 11:25am cephalexin 500 mg oral capsule (2 sources) Cephalosporin Antibacterial Start: 02-01-2025 End: 02-04-2025 take 1 capsule by mouth three times daily cephALEXin (KEFLEX) 500 mg capsule Take 1 capsule by mouth three times a day for 3 days. 9 capsule 02/01/2025 02/04/2025 Levonorgestrel-Ethi nyl Estrad (3 sources) Progestin, Estrogen, Progestin-containin g Intrauterine Device Start: 07-09-2018 End: 10-20-2020 take 1 tablet by mouth once daily Levonorgestrel-Eth inyl Estrad (Aviane) 0.1-20 mg-mcg tablet Discontinued 1 TABLET PO DAILY July 09, 2018 12:00am October 20, 2020 7:12am Start: 07-09-2018 End: 10-20-2020 take 1 tablet by mouth once daily Levonorgestrel-Ethinyl Estrad (Aviane) 0.1-20 mg-mcg tablet Discontinued 1 TABLET PO DAILY July 09, 2018 1:00am October 20, 2020 8:12am etonogestrel 68 mg drug implant (3 sources) Progestin Start: 06-17-2018 End: 07-09-2018 Etonogestrel (Nexplanon) 68 mg implant Discontinued 1 IMPLANT Subdermal ONCE June 17, 2018 12:00am July 09, 2018 9:12am fluconazole 150 mg oral tablet (6 sources) Azole Antifungal Start: 09-15-2019 End: 10-20-2020 Fluconazole Discontinued 150 MG PO .COMPLEX 2 April 14, 2020 4:28pm October 20, 2020 6:14am 150 mg PO take one po now and repeat in 3 days ibuprofen 800 mg oral tablet (3 sources) Nonsteroidal Anti-inflammatory Drug Start: 03-06-2022 End: 04-25-2022 take 800 mg by mouth every eight hours Ibuprofen Discontinued 800 MG PO Q8H 15 7 March 05, 2022 11:00pm April 25, 2022 11:25am Problems Active Problems Problem Classification Problem Date Documented Date Episodic/Chronic Abdominal pain (6 sources) Pain in pelvis; Translations: [Pelvic and perineal pain] Onset: 3 04-18-2023 Episodic Disorders usually diagnosed in infancy, childhood, or adolescence (2 sources) Attention deficit hyperactivity disorder, predominantly inattentive type; Translations: [Other specified behavioral and emotional disorders with onset usually occurring in childhood and adolescence] 04-25-2022 Chronic Fracture of upper limb (4 sources) Closed fracture thumb distal phalanx ; Translations: [Nondisplaced fracture of distal phalanx of right thumb, initial encounter for closed fracture] Onset: 5 02-03-2025 Episodic Heart valve disorders (2 sources) Heart murmur; Translations: [Cardiac murmur, unspecified] 07-23-2024 Episodic Menstrual disorders (6 sources) Menometrorrhagia; Translations: [Excessive and frequent menstruation with irregular cycle] Onset: 2 Chronic Miscellaneous mental health disorders (5 sources) 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; 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] Onset: 7 04-04-2017 Chronic Nausea and vomiting (3 sources) Nausea with vomiting, unspecified; Translations: [Nausea] Onset: 5 Episodic Other connective tissue disease (1 source) Pain in right thumb; Translations: [Pain in right finger(s)] 02-04-2025 Episodic Other female genital disorders (5 sources) Deep pain on intercourse; Translations: [Deep dyspareunia] Onset: 7 04-04-2017 Chronic Other female genital disorders (2 sources) Other specified noninflammatory disorders of vagina; Translations: [Other specified symptoms associated with female genital organs] Onset: 3 Episodic Other injuries and conditions due to external causes (1 source) Other injury of unspecified body region, initial encounter; Translations: [Skin avulsion] Onset: 5 Episodic Other skin disorders (1 source) Night sweats Onset: 5 Episodic Other upper respiratory infections (1 source) Acute sinusitis; Translations: [Acute sinusitis, unspecified] 08-07-2023 Episodic Sprains and strains (2 sources) Sprain of metacarpophalangeal joint of right thumb, initial encounter; Translations: [Sprain of metacarpophalangeal (joint) of hand] 02-03-2025 Episodic Thyroid disorders (2 sources) Nontoxic multinodular goiter; Translations: [Nontoxic multinodular goiter] Onset: 8 Chronic Past or Other Problems Problem Classification Problem Date Documented Date Episodic/Chronic Contraceptive and procreative management (10 sources) Patient encounter status; Translations: [Encounter for contraceptive management, unspecified] Onset: 6 Episodic Early or threatened labor (4 sources) Irregular uterine contractions; Translations: [False labor, unspecified] Onset: 4 Resolved: 4 07-25-2013 Episodic Hypertension complicating ; childbirth and the puerperium (4 sources) -induced hypertension; Translations: [Gestational [-induced] hypertension without significant proteinuria, third trimester] Onset: 4 Resolved: 5 12-03-2014 Episodic Inflammatory diseases of female pelvic organs (4 sources) Bacterial vaginosis; Translations: [Acute vaginitis] Onset: 4 Resolved: 5 12-03-2014 Episodic Nonmalignant breast conditions (4 sources) Lump in upper outer quadrant of left breast; Translations: [Unspecified lump in the left breast, upper outer quadrant] Episodic Other complications of (5 sources) Carpal tunnel syndrome; Translations: [Diseases of the nervous system complicating , unspecified trimester] Onset: 4 07-01-2013 Episodic Other female genital disorders (4 sources) Dyspareunia; Translations: [Dyspareunia] Onset: 5 Resolved: 5 12-03-2014 Chronic Other nutritional; endocrine; and metabolic disorders (1 source) Abnormal weight loss; Translations: [Abnormal weight loss] Onset: 5 Episodic Other and delivery including normal (4 sources) Normal ; Translations: [Encounter for supervision of other normal , unspecified trimester] Onset: 3 Resolved: 4 09-03-2013 Episodic Ovarian cyst (5 sources) Cyst of left ovary; Translations: [Unspecified ovarian cyst, left side] Onset: 5 10-21-2014 Episodic Prolonged (5 sources) Post-term ; Translations: [Post-term ] Onset: 4 07-13-2015 Episodic Unclassified (1 source) Sprain of metacarpophalangeal (MCP) joint of right thumb, initial encounter 02-03-2025 Results Test Name Value Interpretation Reference Range Facility AMB CARD Physician Progress Noteon 04-19-2025 AMB CARD Physician Progress Note STEPHANY ROMERO :1990 [facility]:[id number] Registration Date:04/19/2025 Assessment/Plan Patient is a 34-year-old female with a strong family history of premature coronary artery disease presenting for cardiovascular risk assessment. This Visit Diagnosis 1. Family history of premature CAD/(Z82.49: Family history of ischemic heart disease and other diseases of the circulatory system) 2. Will plan for a stress test and follow her accordingly 3. Needs no further cardiac workup otherwise. She will continue to exercise as before and she will get her cholesterol checked by her family doctor. Chief Complaint dr sims family history heart attack father father had narrow arteries of the heart leg swlling History of Present Illness Disclaimer: The content of this note was generated by an artificial intelligence (AI) language model version 25.Q4.0.0 Patient consented to the use of AI Mrs. Romero is a pleasant 34-year-old lady with significant family history of coronary disease is here for cardiac evaluation and follow-up. Family History of Heart Disease The patient's father had a myocardial infarction at age 50, underwent five-vessel coronary artery bypass grafting, and subsequently required annual stenting procedures. He was a smoker and experienced significant lower extremity swelling toward the end of his life, and was thought to have heart failure and possible diabetes, though he was never formally diagnosed with diabetes. He a year and a half ago. The patient's cousin in January and had a history of atrial fibrillation and leg swelling, which has contributed to the patient's concern about her own cardiac risk. Her ECG looks normal. Personal Health and Risk Factors The patient denies any history of diabetes, hypertension, chest pain, jaw pain, shoulder pain, dyspnea, or palpitations. She reports an episode of excessive lower extremity swelling after a recent car trip to [place], which was more pronounced than her usual mild swelling after travel. She is physically active, running several miles per week and recently completing a half marathon without difficulty. She does not smoke, drinks alcohol socially, and weighs 122 pounds. Medication Reconciliation What How Much When Instructions Unchanged amphetamine-dextroamphetamin e (Adderall 10 mg oral tablet) Oral TWICE A DAY Unchanged amphetamine-dextroamphetamin e (Adderall 30 mg oral tablet) Oral TWICE A DAY Cardiac History No qualifying data available. Physical Exam NECK: JVP is not elevated: Good carotid pulses and no bruit CVS; Normal heart sounds. No murmur and no gallop. No rub BP: 128/76 mm Hg LUNGS: No rhonchi and no wheeze: Clear breath sounds ADOMEN: Benign EXTREMITIES: Good distal pulses. No edema of legs Vitals & Measurements Temperature Temporal (F): 98.5 degF (04/19/25 08:53:00) Apical Heart Rate: 73 bpm (04/19/25 08:53:00) Height/Length Measured: 157 cm (04/19/25 08:53:00) Weight Measured: 55 kg (04/19/25 08:53:00) Body Mass Index Measured: 22.31 kg/m2 (04/19/25 08:53:00) Weight Measured - lbs2: 122 lb (04/19/25 08:53:00) Height/Length Measured - in2: 62 in (04/19/25 08:53:00) Body Mass Index Measured English2: 22.31 kg/m2 (04/19/25 08:53:00) BSA: 1.55 m2 (04/19/25 08:53:00) Ht/Wt Measurement Refused by Patient?2: No (04/19/25 08:53:00) . Initial Depression Screen Score: 0 (04/19/25 08:53:00) Is the patient ambulatory (mobile): Yes (04/19/25 08:53:00) Have you had a fall within the past: No (04/19/25 08:53:00) Have you had 2 or more falls in the past: No (04/19/25 08:53:00) Electronically Co-Signed by: ALYCIA XIAO MD on 04/19/2025 19:23 EST Normal [facility] ALLIED HEALTHon 03-16-2025 ALLIED HEALTH HNO ID: [id number] Author: OLAMIDE BROCK RT(R) Service: Radiology Author Type: Technologist Type: Allied Health Filed: 03/16/2025 03:28 Note Text: Radiology Service Progress Note DATE OF SERVICE: March 16, 2025 TIME: 3:27 AM PATIENT IDENTITY VERIFICATION COMPLETED USING TWO (2) STANDARD IDENTIFIERS: Name and Date of confirmed by patient verbally. FALL SCREENING: Has the patient had 2 falls in the last year or 1 fall with injury or currently using an Ambulatory Assistive Device (Walker, Cane, Wheelchair, Crutches, etc.)? Emergency Room Patient: Screened in ED PATIENT GENDER DATA: Assigned female at . status: : No status: NO. PATIENT RELEVANT IMPLANT DATA REVIEWED: Yes PATIENT PRESENTS WITH AN IMPLANTABLE OR ATTACHED HURL SHAKER: No ALLERGIES: Reviewed and unchanged CONTRAST ALLERGY: NO. EXAM: CT -CONTRAST INDUCED NEPHROPATHY RISK FACTORS: Not applicable CREATININE: Creatinine Date Value Ref Range Status 03/16/2025 0.59 0.58 - 0.96 mg/dL Final 06/18/2017 0.59 0.51 - 0.95 mg/dL Final 03/26/2014 0.62 0.51 - 0.95 mg/dL Final Estimated Glomerular Filtration Rate Date Value Ref Range Status 03/16/2025 120 >=60 mL/min/1.73m? Final Comment: Estimated Glomerular Filtration Rate (eGFR) is calculated using the 2020 CKD-EPI creatinine equation. This equation utilizes serum creatinine, sex, and age as parameters. The creatinine assay has traceable calibration to isotope dilution-mass spectrometry. Refer to KDIGO guidelines for clinical interpretation. In patients with unstable renal function, e.g. those with acute kidney injury, the eGFR may not accurately reflect actual GFR. P.O.C.T. RESULTS: POC done: Yes, See Lab Tab March 16, 2025 TREATMENT: N/A PERIPHERAL IV DATA: Inpatient - refer to LDA documentation RADIOLOGY DEPARTMENT: CT; Exam(s) Completed: Abdomen/Pelvis . Anesthesia: No SIGNATURE: RT Earnest(R) PATIENT NAME: Stephany ROMERO DATE: March 16, 2025 TIME: 3:27 AM Normal [facility] Basic metabolic 2000 panelon 03-16-2025 Anion gap [Moles/Vol] 16 mmol/L High 8-15 [facility] Comment on above: Order Comment: Speci men Type: BLOOD SPECIMENOrdering Facility: [facility] Address: [address] [place] [address] Performed By: #### 2 4321-2 ####[facility] [place] LABCLIA [id number] [place] [address] [place] Calcium [Mass/Vol] 9.7 mg/dL Normal 8.5-10.2 [facility] Comment on above: Order Comment: Speci men Type: BLOOD SPECIMENOrdering Facility: [facility] Address: [address] [place] [address] Performed By: #### 2 4321-2 ####[facility] [place] LABCLIA [id number] [place] [address] [place] Chloride [Moles/Vol] 100 mmol/L Normal 98-107 [facility] Comment on above: Order Comment: Speci men Type: BLOOD SPECIMENOrdering Facility: [facility] Address: [address] [place] [address] Performed By: #### 2 4321-2 ####[facility] [place] LABCLIA [id number] [place] [address] [place] CO2 [Moles/Vol] 20 mmol/L Low 22-30 [facility] Comment on above: Order Comment: Speci men Type: BLOOD SPECIMENOrdering Facility: [facility] Address: [address] [place] [address] Performed By: #### 2 4321-2 ####[facility] [place] LABCLIA [id number] [place] [address] [place] Creatinine [Mass/Vol] 0.59 mg/dL Normal 0.58-0.96 [facility] Comment on above: Order Comment: Speci men Type: BLOOD SPECIMENOrdering Facility: [facility] Address: [address] [place] [address] Performed By: #### 2 4321-2 ####[facility] [place] LABCLIA [id number] [place] [address] [place] eGFRcr SerPlBld CKD-EPI 2020 120 mL/min/1.73m??? Normal >=60 [facility] Comment on above: Order Comment: [place] Type: BLOOD SPECIMENOrdering Facility: [facility] Address: [address] [place] [address] Result Comment: Elisabeth mated Glomerular Filtration Rate (eGFR) is calculated using the 2020 CKD-EPI creatinine equation. This equation utilizes serum creatinine, sex, and age as parameters. The creatinine assay has traceable calibration to isotope dilution-mass spectrometry. Refer to KDIGO guidelines for clinical interpretation. In patients with unstable renal function, e.g. those with acute kidney injury, the eGFR may not accurately reflect actual GFR. Performed By: #### 2 4321-2 ####[facility] LABCLIA [id number] [place] [address] [place] Glucose [Mass/Vol] 109 mg/dL High 74-99 [facility] Comment on above: Order Comment: [place] Type: BLOOD SPECIMENOrdering Facility: [facility] Address: [address] [place] [address] Result Comment: The [place] Diabetes Association (ADA) provides guidance for cutoff values for fasting glucose and random glucose. The ADA defines fasting as no caloric intake for at least 8 hours. Fasting plasma glucose results between 100 to 125 mg/dL indicate increased risk for diabetes (prediabetes). Fasting plasma glucose results greater than or equal to 126 mg/dL meet the criteria for diagnosis of diabetes. In the absence of unequivocal hyperglycemia, results should be confirmed by repeat testing. In a patient with classic symptoms of hyperglycemia or hyperglycemic crisis, random plasma glucose results greater than or equal to 200 mg/dL meet the criteria for diagnosis of diabetes. Reference: Standards of Medical Care in Diabetes 2016, [place] Diabetes Association. Diabetes Care. 2016.39(Suppl 1). Performed By: #### 2 4321-2 ####[facility] [employer] LABCLIA [id number] [place] [address] [place] Potassium [Moles/Vol] 3.7 mmol/L Normal 3.7-5.1 [facility] Comment on above: Order Comment: [place] Type: BLOOD SPECIMENOrdering Facility: [facility] Address: [address] [place] [address] Performed By: #### 2 4321-2 ####[facility] [place] LABCLIA [id number] [place] [address] [place] [address] [facility] [place] Sodium [Moles/Vol] 136 mmol/L Normal 136-144 [facility] Comment on above: Order Comment: Speci men Type: BLOOD SPECIMENOrdering Facility: [facility] Address: [address] [place] [address] Performed By: #### 2 4321-2 ####[facility] [place] LABCLIA [id number] [place] [address] [place] Urea nitrogen [Mass/Vol] 8 mg/dL Normal 7-21 [facility] Comment on above: Order Comment: Speci men Type: BLOOD SPECIMENOrdering Facility: [facility] Address: [address] [place] [address] Performed By: #### 2 4321-2 ####[facility] [place] LABCLIA [id number] [place] [id number] [place] [facility] [place] CBC W Auto Differential pane l (Bld)on 03-16-2025 Basophils (Bld) [#/Vol] 10*3/uL Normal <0.11 [facility] Comment on above: Order Comment: Speci men Type: BLOOD SPECIMENOrdering Facility: [facility] Address: [address] [place] [address] Performed By: #### 5 7021-8 ####[facility] [place] LABCLIA [id number] [place] [id number] [place] [facility] [place] Basophils/100 WBC (Bld) 0.2 % Normal [facility] Comment on above: Order Comment: Speci men Type: BLOOD SPECIMENOrdering Facility: [facility] Address: [address] [place] [address] Performed By: #### 5 7021-8 ####[facility] [place] LABCLIA [id number] [place] [address] [facility] Differential cell count method Nom (Bld) Auto Normal [facility] Comment on above: Order Comment: Speci men Type: BLOOD SPECIMENOrdering Facility: [facility] Address: [address] [place] [address] Performed By: #### 5 7021-8 ####[facility] [place] LABCLIA [id number] [facility] [place] [address] [place] Eosinophils (Bld) [#/Vol] 10*3/uL Normal <0.46 [facility] Comment on above: Order Comment: Speci men Type: BLOOD SPECIMENOrdering Facility: [facility] Address: [address] [place] [address] Performed By: #### 5 7021-8 ####[facility] [place] LABCLIA [id number] [facility] [place] [address] [facility] Eosinophils/100 WBC (Bld) 0.2 % Normal [facility] Comment on above: Order Comment: Speci men Type: BLOOD SPECIMENOrdering Facility: [facility] Address: [address] [place] [address] Performed By: #### 5 7021-8 ####[facility] [place] LABCLIA [id number] [facility] [place] [address] [facility] Erythrocyte distribution width (RBC) [Ratio] 11.7 % Normal 11.5-15.0 [facility] Comment on above: Order Comment: Speci men Type: BLOOD SPECIMENOrdering Facility: [facility] Address: [address] [place] [address] Performed By: #### 5 7021-8 ####[facility] [place] LABCLIA [id number] [facility] [address] [facility] Hematocrit (Bld) [Volume fraction] 43.5 % Normal 36.0-46.0 [facility] Comment on above: Order Comment: Speci men Type: BLOOD SPECIMENOrdering Facility: [facility] Address: [facility] [place] [address] Performed By: #### 5 7021-8 ####[facility] [place] LABCLIA [id number] [facility] [address] [place] Hemoglobin (Bld) [Mass/Vol] 14.9 g/dL Normal 11.5-15.5 [facility] Comment on above: Order Comment: Speci men Type: BLOOD SPECIMENOrdering Facility: [facility] Address: [address] [place] [address] Performed By: #### 5 7021-8 ####[facility] [place] LABCLIA [id number] [facility] [place] [address] [place] Immature granulocytes (Bld) [#/Vol] 0.03 10*3/uL Normal <0.10 [facility] Comment on above: Order Comment: Speci men Type: BLOOD SPECIMENOrdering Facility: [facility] Address: [address] [place] [address] Performed By: #### 5 7021-8 ####[facility] [place] LABCLIA [id number] [place] [address] [place] Immature granulocytes/100 WBC (Bld) 0.3 % Normal [facility] Comment on above: Order Comment: Speci men Type: BLOOD SPECIMENOrdering Facility: [facility] Address: [address] [place] [address] Performed By: #### 5 7021-8 ####[facility] [place] LABCLIA [id number] [place] [address] [place] Lymphocytes (Bld) [#/Vol] 1.51 10*3/uL Normal 1.00-4.00 [facility] Comment on above: Order Comment: Speci men Type: BLOOD SPECIMENOrdering Facility: [facility] Address: [address] [place] [address] Performed By: #### 5 7021-8 ####[facility] [place] LABCLIA [id number] [place] [address] [place] Lymphocytes/100 WBC (Bld) 14.2 % Normal [facility] Comment on above: Order Comment: Speci men Type: BLOOD SPECIMENOrdering Facility: [facility] Address: [address] [place] [address] Performed By: #### 5 7021-8 ####[facility] [place] LABCLIA [id number] [place] [address] [facility] MCH (RBC) [Entitic mass] 33.3 pg Normal 26.0-34.0 [facility] Comment on above: Order Comment: Speci men Type: BLOOD SPECIMENOrdering Facility: [facility] Address: [address] [place] [address] Performed By: #### 5 7021-8 ####[facility] LABCLIA [id number] [place] [address] [place] MCHC (RBC) [Mass/Vol] 34.3 g/dL Normal 30.5-36.0 [facility] Comment on above: Order Comment: Speci men Type: BLOOD SPECIMENOrdering Facility: [facility] Address: [address] [place] [address] Performed By: #### 5 7021-8 ####[facility] LABCLIA [id number] [address] [facility] MCV (RBC) [Entitic vol] 97.1 fL Normal 80.0-100.0 [facility] Comment on above: Order Comment: Speci men Type: BLOOD SPECIMENOrdering Facility: [facility] Address: [address] [place] [address] Performed By: #### 5 7021-8 ####[facility] LABCLIA [id number] [place] [address] [place] Monocytes (Bld) [#/Vol] 0.92 10*3/uL High <0.87 [facility] Comment on above: Order Comment: Speci men Type: BLOOD SPECIMENOrdering Facility: [facility] Address: [address] [place] [address] Performed By: #### 5 7021-8 ####[facility] LABCLIA [id number] [place] [address] [facility] Monocytes/100 WBC (Bld) 8.6 % Normal [facility] Comment on above: Order Comment: Speci men Type: BLOOD SPECIMENOrdering Facility: [facility] Address: [address] [place] [address] Performed By: #### 5 7021-8 ####[facility] [place] LABCLIA [id number] [place] [address] [place] Neutrophils (Bld) [#/Vol] 8.16 10*3/uL High 1.45-7.50 [facility] Comment on above: Order Comment: Speci men Type: BLOOD SPECIMENOrdering Facility: [facility] Address: [facility] [place] [address] Performed By: #### 5 7021-8 ####[facility] [place] LABCLIA [id number] [place] [address] [place] Neutrophils/100 WBC (Bld) 76.5 % Normal [facility] Comment on above: Order Comment: Speci men Type: BLOOD SPECIMENOrdering Facility: [facility] Address: [address] [place] [address] Performed By: #### 5 7021-8 ####[facility] [place] LABCLIA [id number] [place] [address] [place] Nucleated RBC (Bld) [#/Vol] Normal [facility] Comment on above: Order Comment: Speci men Type: BLOOD SPECIMENOrdering Facility: [facility] Address: [address] [place] [address] Performed By: #### 5 7021-8 ####[facility] [place] LABCLIA [id number] [place] [address] [place] Nucleated RBC/100 WBC (Bld) [Ratio] Normal [facility] Comment on above: Order Comment: Speci men Type: BLOOD SPECIMENOrdering Facility: [facility] Address: [address] [place] [address] Performed By: #### 5 7021-8 ####[facility] [place] LABCLIA [id number] [place] [address] [place] Platelet mean volume (Bld) [Entitic vol] 8.8 fL Low 9.0-12.7 [facility] Comment on above: Order Comment: Speci men Type: BLOOD SPECIMENOrdering Facility: [facility] Address: [address] [place] [address] Performed By: #### 5 7021-8 ####[facility] LABCLIA [id number] [place] [address] [facility] Platelets (Bld) [#/Vol] 394 10*3/uL Normal 150-400 [facility] Comment on above: Order Comment: Speci men Type: BLOOD SPECIMENOrdering Facility: [facility] Address: [address] [place] [address] Performed By: #### 5 7021-8 ####[facility] LABCLIA [id number] RBC (Bld) [#/Vol] 4.48 10*6/uL Normal 3.90-5.20 [facility] Comment on above: Order Comment: Speci men Type: BLOOD SPECIMENOrdering Facility: [facility] Address: [address] [place] [address] Performed By: #### 5 7021-8 ####[facility] LABCLIA [id number] [place] [address] [facility] WBC (Bld) [#/Vol] 10.66 10*3/uL Normal 3.70-11.00 [facility] Comment on above: Order Comment: Speci men Type: BLOOD SPECIMENOrdering Facility: [facility] Address: [address] [place] [address] Performed By: #### 5 7021-8 ####[facility] LABCLIA [id number] [place], [place] [address] [place] [address] CT ABD/PEL W IVCONon 07-[address] ABD/PEL W IVCON * * *Final Report* * * DATE OF EXAM: Mar 16 2025 3:25AM LD 0530 - CT ABD/PEL W IVCON / PROCEDURE REASON: Nausea/vomiting * * * * Physician Interpretation * * * * EXAMINATION: CT ABDOMEN AND PELVIS WITH IV CONTRAST CLINICAL HISTORY: RIGHT lower quadrant pain TECHNIQUE: CT of the abdomen and pelvis was performed using standard technique, scanning from just above the dome of the diaphragm to the symphysis pubis. MQ: CTAP_3 Contrast: IV: 100 ml of Omnipaque 350 : ml of CT Radiation dose: Integrated Dose-length product (DLP) for this visit = 398.02 mGy*cm. CT Dose Reduction Employed: Automated exposure control(AEC) and iterative recon COMPARISON: 10/05/2024 RESULT: No radiopaque gallstones. Intrauterine device. Urinary bladder wall thickening. Appendix not identified but no pericecal inflammation. No suspicious osseous lesion. Normal kidneys adrenal glands pancreas spleen liver aorta IVC. No ascites or bowel obstruction. Mild ascending colonic stool burden. IMPRESSION: 1. Appendix not identified but no pericecal inflammation or fluid dilated tubular structure 2. Mild ascending colonic stool burden 3. Urinary bladder wall thickening in the setting of incomplete distention may represent cystitis Auger Machine Offbearer: LOWELL Transcribe Date/Time: Mar 16 2025 5:19A Dictated by : JACINTO FINCH MD This examination was interpreted and the report reviewed and electronically signed by: JACINTO FINCH MD on Mar 16 2025 5:27AM EST [id number] Normal [facility] ECG COMPLETEon 03-16-2025 ECG COMPLETE Ventricular Rate : 7 6 BPM Atrial Rate : 76 BPM P-R Interval : 126 ms QRS Duration : 84 ms Q-T Interval : 386 ms QTC Calculation(Bazett) : 434 ms Calculated P Sarah : 78 degrees Calculated R Sarah : 84 degrees Calculated T Sarah : 72 degrees NORMAL SINUS RHYTHM MINIMAL VOLTAGE CRITERIA FOR LVH, MAY BE NORMAL VARIANT ( Sokolow-Saravia ) BORDERLINE ECG NO PREVIOUS ECGS AVAILABLE Confirmed by DO GUILLORY JESSICA ([id number]) on 03/16/2025 2:03:55 AM NAME : STEPHANY ROMERO PID : [id number] : 1990 Gender : Female Race : ORD : [id number] Procedure Date : Mar 16 2025 01:59:04 Edit Date : Mar 16 2025 02:04:01 Diagnosis: NORMAL SINUS RHYTHM MINIMAL VOLTAGE CRITERIA FOR LVH, MAY BE NORMAL VARIANT ( Sokolow-[place] ) BORDERLINE ECG NO PREVIOUS ECGS AVAILABLE Confirmed by DO GUILLORY JESSICA ([id number]) on 03/16/2025 2:03:55 AM Test Reason : Nausea with Vomiting Location : 150 : [place] Overread By : DO GUILLORY JESSICA Edited By : DO GUILLORY JESSICA Referred By : , Acquired by : BERNADETTE WINCHESTER [facility] ED NOTEon 03-16-2025 ED NOTE HNO ID: [id number] Author: PAPA SILVA RN Service: Emergency Medicine Author Type: Registered Nurse Type: ED Notes Filed: 03/16/2025 05:46 Note Text: Pt verbalizes understanding of discharge instructions. Denies further questions, comments, concerns at this time. Normal [facility] ED PROV NOTEon 03-16-2025 ED PROV NOTE HNO ID: [id number] Author: MICHAEL GUILLORY DO Service: Emergency Medicine Author Type: Physician Type: ED Provider Notes Filed: 03/16/2025 05:59 Note Text: ED Provider Note Patient Name: Stephany ROMERO : 1990 SERVICE DATE: 03/16/25 History Patient presents with: Nausea AND Vomiting Stephany ROMERO is a 34 year old female who presents with Nausea AND Vomiting. - Symptoms began yesterday at noon. - Severity: moderate - Timing: constant - Symptoms are associated with nothing. - Symptoms are not associated with abdominal pain, chest pain, chills, diarrhea, fever, shortness of breath, URI symptoms, dysuria,hematuria, flank pain. Patient presents with nausea and vomiting since noon yesterday. She states that she has had no diarrhea. No abdominal pain. She denies chest pain or shortness of breath. No dysuria or hematuria. No fever or chills. No unusual food intake prior to vomiting starting. No known sick contacts with similar symptoms. PAST MEDICAL HISTORY Diagnosis Date Hypertension Laceration of finger 07/22/2013 tip of finger, heal by 2* intention. Mental disorder depression off and on during this Nexplanon in place 10/31/[address] 01/11/2016 depression 2013 SAB (spontaneous ) ([facility]) Vaginal delivery ([facility]) 07/2013 vacuum delivery PAST SURGICAL HISTORY Procedure Laterality Date NONE FAMILY HISTORY Problem Relation Age of Onset Heart Father Breast Cancer Maternal Grandmother Diabetes Paternal Grandmother Social History[1] ALLERGIES No Known Allergies Review of Systems Constitutional: Negative for chills and fever. Respiratory: Negative for shortness of breath. Cardiovascular: Negative for chest pain. Gastrointestinal: Positive for nausea and vomiting. Negative for abdominal pain and diarrhea. Genitourinary: Negative for dysuria, flank pain and hematuria. Musculoskeletal: Negative for back pain. Skin: Negative for rash. Neurological: Negative for weakness and numbness. Psychiatric/Behavioral: Negative for agitation and confusion. Physical Exam Vitals [03/16/25 0139] BP Pulse Temp Temp src Resp SpO2 Weight Height 163/107 87 -- -- 16 100 % -- -- Physical Exam Vitals and nursing note reviewed. Constitutional: Appearance: She is not toxic-appearing or diaphoretic. HENT: Head: Normocephalic and atraumatic. Eyes: Conjunctiva/sclera: Conjunctivae normal. Cardiovascular: Rate and Rhythm: Normal rate and regular rhythm. Pulses: Normal pulses. Pulmonary: Effort: Pulmonary effort is normal. Breath sounds: Normal breath sounds. Abdominal: General: Abdomen is flat. Bowel sounds are normal. There is no distension. Palpations: Abdomen is soft. Tenderness: There is no abdominal tenderness. There is no right CVA tenderness, left CVA tenderness, guarding or rebound. Skin: General: Skin is warm and dry. Capillary Refill: Capillary refill takes less than 2 seconds. Findings: No rash. Neurological: General: No focal deficit present. Mental Status: She is alert and oriented to person, place, and time. GCS: GCS eye subscore is 4. GCS verbal subscore is 5. GCS motor subscore is 6. Psychiatric: Mood and Affect: Mood normal. Behavior: Behavior normal. Diagnostic Testing ED Labs Ordered and Reviewed BASIC METABOLIC PANEL - Abnormal; Notable for the following components: Result Value Ref Range Glucose 109 (*) 74 - 99 mg/dL CO2 20 (*) 22 - 30 mmol/L Anion Gap 16 (*) 8 - 15 mmol/L All other components within normal limits COMPLETE BLOOD COUNT AND DIFFERENTIAL - Abnormal; Notable for the following components: MPV 8.8 (*) 9.0 - 12.7 fL Abs Neut 8.16 (*) 1.45 - 7.50 k/uL Abs [place] 0.92 (*) <0.87 k/uL All other components within normal limits URINALYSIS (WITH MICROSCOPIC) WITH CULTURE IF INDICATED - Abnormal; Notable for the following components: Clarity Slightly Cloudy (*) Clear Ketones, Urine 4+ (*) Negative Protein, Urine 1+ (*) Negative All other components within normal limits Narrative: Interpret results with caution, urine volume is less than optimal. HCG, QUALITATIVE, URINE - Normal Results for orders placed or performed during the hospital encounter of 03/16/25 ECG COMPLETE Impression NORMAL SINUS RHYTHM MINIMAL VOLTAGE CRITERIA FOR LVH, MAY BE NORMAL VARIANT ( Sokolow-Saravia ) BORDERLINE ECG NO PREVIOUS ECGS AVAILABLE Confirmed by DO GUILLORY JESSICA ([id number]) on 03/16/2025 2:03:55 AM Procedures ED Course / Clinical Impression Clinical Impressions as of 03/16/25 0558 Nausea and vomiting, unspecified vomiting type RLQ abdominal pain MDM / Disposition / Plan Will obtain labs and EKG. Patient was medicated for nausea and vomiting. IV fluids ordered. On re-evaluation: Patient states that nausea is improved after Zofran. She states now she feels that she has right lower abdominal pa (more content not included)... Normal [facility] HCG Preg Ur Qlon 03-16-2025 HCG ( test) Ql (U) Negative Normal Negative [facility] Comment on above: Order Comment: Speci men Type: URINE SPECIMENOrdering Facility: [facility] Address: [address] [place] [address] Result Comment: This test is intended to aid in the early detection of . Very dilute urine samples, as indicated by a low specific gravity, may not contain public relations representative levels of hCG. This test detects intact hCG only. This test does not reliably detect hCG degradation products, including free-beta subunit and beta-core fragment. Therefore, this test may show reduced reactivity in urine after 8 weeks gestation. A number of conditions other than , including trophoblastic disease and certain non-trophoblastic neoplasms cause elevated levels of hCG. As with any assay employing mouse antibodies, the possibility exists for interference by human anti-mouse antibodies (HAMA) in the specimen. The test provides a presumptive diagnosis for . Performed By: #### 2 106-3 ####[facility] LABCLIA [id number] [place] [address] [facility] Urinalysis complete panel (U )on 03-16-2025 Bilirubin Ql (U) Negative Normal Negative [facility] Comment on above: Order Comment: Speci men Type: URINE SPECIMENOrdering Facility: [facility] Address: [address] [place] [address] Performed By: #### 2 4356-8 ####[facility] LABCLIA [id number] [place] [address] [facility] Clarity (Unsp spec) Slightly Cloudy Abnormal Clear [facility] Comment on above: Order Comment: Speci men Type: URINE SPECIMENOrdering Facility: [facility] Address: [address] [place] [address] Performed By: #### 2 4356-8 ####[facility] LABCLIA [id number] [place] [address] [facility] Color (U) Yellow Normal Yellow [facility] Comment on above: Order Comment: Speci men Type: URINE SPECIMENOrdering Facility: [facility] Address: [address] [place] [address] Performed By: #### 2 4356-8 ####[facility] LABCLIA [id number] [place] [address] [facility] Epithelial cells LM.HPF (Urine sed) [#/Area] Few Normal [facility] Comment on above: Order Comment: Speci men Type: URINE SPECIMENOrdering Facility: [facility] Address: [address] [place] [address] Performed By: #### 2 4356-8 ####[facility] [place] LABCLIA [id number] [place] [address] [facility] Glucose Test strip (U) [Mass/Vol] Negative Normal Negative [facility] Comment on above: Order Comment: Speci men Type: URINE SPECIMENOrdering Facility: [facility] Address: [address] [place] [address] Performed By: #### 2 4356-8 ####[facility] [place] LABCLIA [id number] [facility] [address] [place] Hemoglobin Ql (U) Negative Normal Negative [facility] Comment on above: Order Comment: Speci men Type: URINE SPECIMENOrdering Facility: [facility] Address: [address] [place] [address] Performed By: #### 2 4356-8 ####[facility] [place] LABCLIA [id number] [place] [address] [place] [address] [facility] Ketones Ql (U) 4+ Abnormal Negative [facility] Comment on above: Order Comment: Speci men Type: URINE SPECIMENOrdering Facility: [facility] Address: [address] [place] [address] Performed By: #### 2 4356-8 ####[facility] [place] LABCLIA [id number] [place] [address] [place] Leukocyte esterase Test strip Ql (U) Negative Normal Negative [facility] Comment on above: Order Comment: Speci men Type: URINE SPECIMENOrdering Facility: [facility] Address: [address] [place] [address] Performed By: #### 2 4356-8 ####[facility] [place] LABCLIA [id number] [facility] [place] [address] [place] Nitrite Ql (U) Negative Normal Negative [facility] Comment on above: Order Comment: Speci men Type: URINE SPECIMENOrdering Facility: [facility] Address: [address] [place] [address] Performed By: #### 2 4356-8 ####[facility] [place] LABCLIA [id number] [facility] [address] [place] pH (U) 7.0 [pH] Normal 5.0-8.0 [facility] Comment on above: Order Comment: Speci men Type: URINE SPECIMENOrdering Facility: [facility] Address: [address] [place] [address] Performed By: #### 2 4356-8 ####[facility] LABCLIA [id number] [place] [address] [facility] Protein (U) [Mass/Vol] 1+ Abnormal Negative [facility] Comment on above: Order Comment: Speci men Type: URINE SPECIMENOrdering Facility: [facility] Address: [address] [place] [address] Performed By: #### 2 4356-8 ####[facility] LABCLIA [id number] [place] [address] [place] RBC LM.HPF (Urine sed) [#/Area] 0-3 /HPF Normal 0-3 /HPF [facility] Comment on above: Order Comment: Speci men Type: URINE SPECIMENOrdering Facility: [facility] Address: [address] [place] [address] Performed By: #### 2 4356-8 ####[facility] LABCLIA [id number] [place] [address] [facility] Specific gravity (U) [Rel density] 1.020 Normal 1.005-1.030 [facility] Comment on above: Order Comment: Speci men Type: URINE SPECIMENOrdering Facility: [facility] Address: [address] [place] [address] Performed By: #### 2 4356-8 ####[facility] LABCLIA [id number] [place] [address] [facility] Urobilinogen Ql (U) 1.0 EU/dL Normal 0.2-1.0 EU/dL [facility] Comment on above: Order Comment: Speci men Type: URINE SPECIMENOrdering Facility: [facility] Address: [address] [place] [address] Performed By: #### 2 4356-8 ####[facility] [place] LABCLIA [id number] [place] [address] [facility] WBC LM.HPF (Urine sed) [#/Area] 0-5 /HPF Normal 0-5 /HPF [facility] Comment on above: Order Comment: Speci men Type: URINE SPECIMENOrdering Facility: [facility] Address: [address] [place] [id number] Performed By: #### 2 4356-8 ####[facility] [place] LABCLIA [id number] [place] [address] [facility] XR CHEST 2V FRONTAL/LATon XR CHEST 2V FRONTAL/LAT * * *Final Report* * * DATE OF EXAM: Feb 26 2025 9:19AM LDX 5291 - XR CHEST 2V FRONTAL/LAT / PROCEDURE REASON: R61 * * * * Physician Interpretation * * * * EXAMINATION: CHEST RADIOGRAPH (2 VIEW FRONTAL and LATERAL) CLINICAL HISTORY: Night sweats. MQ: XC2_6 EXAM DATE/TIME: 02/26/2025 9:19 AM COMPARISON: No relevant prior studies available. RESULT: Lines, tubes, and devices: None. Lungs and pleura: No consolidation. No lung mass. No pleural effusion. No pneumothorax. Cardiomediastinal silhouette: Normal cardiomediastinal silhouette. Bones and soft tissues: There are bilateral breast implants. IMPRESSION: Unremarkable exam with no acute radiographic abnormality. Auger Machine Offbearer: PSCB Transcribe Date/Time: Feb 28 2025 8:06A Dictated by : GERSON MAI MD This examination was interpreted and the report reviewed and electronically signed by: GERSON MAI MD on Feb 28 2025 8:07AM EST [id number] Normal [facility] CNOVon 02-03-2025 CNOV Office Visit (AGHWW1 ) STEPHANY ROMERO ([id number]) 1990 F Date Time Provider Department 02/03/25 1:00 PM JAILENE LUNA AGHWW1 During your visit today, we recorded the following information about you: Respiration Weight Height 16/minute 52.2 kg 1.575 m Riley Manley Tech 02/03/2025 1:59 PM Signed REVIEW OF SYSTEMS: GENERAL: Well developed, well nourished. No acute distress PAIN: right thumb pain CARDIOVASCULAR: Negative for chest pain, leg swelling and palpations. MSK: Positive for joint swelling SKIN: Negative for lesions, rash, itching, metal sensitivity NEURO: Negative for seizure, trauma, numbness/tingling of extremities. ENDOCRINE: Negative for diabetic associated symptoms HEMATOLOGY: Negative for excessive bleeding, clots, bleeding disorders. Jailene Luna PA-C 02/03/2025 1:59 PM Signed ORTHOPAEDIC OFFICE NOTE CHIEF COMPLAINT: New and Fracture of the Right Thumb HISTORY OF PRESENT ILLNESS Stephany ROMERO is a 34 year old female right hand dominant who presents for evaluation of right thumb injury. Patient states she was throwing a trampoline away when her right thumb got crushed between a metal piece on the trampoline. She was seen at the ED and found to have a distal phalanx fracture. She was placed in a thumb spica splint and sent home on 3 days of Keflex. 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 PAIN EVALUATION 02/03/2025 1254 Pain Level: 6 Pain Location: Finger Description: Throbbing Duration Amount of Time: 2 Duration Units: Days Frequency: Continuous Intervention/Comfort measure: Medication PAST MEDICAL HISTORY Past medical, surgical, family, and social histories have been reviewed and updated with the patient today and are located elsewhere in the medical record. Diabetes:No ALLERGIES ALLERGIES No Known Allergies PHYSICAL EXAMINATION Resp 16 Ht 157.5 cm (5' 2") Wt 52.2 kg (115 lb) LMP 09/10/2020 BMI 21.03 kg/m? Body mass index is 21.03 kg/m?. General Appearance: Well appearing, alert, in no acute distress, well-hydrated, well nourished. Psyche: she is alert and oriented and cooperative to our examination. Neuro: she alert and oriented times: 3. Normal affect times: 3. Gait and station: normal. Pulmonary: she has non labored breathing. There is no evidence of cyanosis. There is no clubbing of fingernails. she has no pursed lips. Head: Normocephalic and atraumatic Neck: Supple with no JVD Lymph: There is no palpable epitrochlear Musculoskeletal- Right Hand/Wrist/Upper Extremity Exam: Skin: There is + swelling and ecchymosis noted to distal phalanx of right thumb. There is skin maceration and an abrasion noted to the dorsal aspect of right thumb, just proximal to proximal nail border. Right thumb nail appears intact. No subungual hematoma. No erythema, cellulitis/streaking, active bleeding or purulent drainage noted. There are no skin lacerations. Cardiovascular: <3 sec capillary refill, +2 radial pulse palpated. Tenderness to palpation: over right thumb distal phalanx and DIP joints. TTP noted to ulnar aspect of right thumb MP joint. ROM: Patient actively fires EPL and FPL tendons of right thumb. +Pain but no laxity with UCL stress testing of right thumb MP joint. No pain or laxity with RCL stress testing of right thumb MP joint. Instability: none Sensation: Normal sensation except the distal aspect of right thumb distal phalanx is decreased REVIEW OF STUDIES DATE OF EXAM: Feb 01 2025 8:33AM LDX 5319 - XR DIGIT 3V FRONTAL/LAT/OBL RT / PROCEDURE REASON: Hand trauma, no prior imaging * * * * Physician Interpretation * * * * LEFT THUMB PA, OBLIQUE AND LATERAL: CLINICAL INDICATION: Recent left thumb injury with left thumb pain and swelling. COMPARISON: No relevant prior available. Acute comminuted nondisplaced fracture involving the tuft of the distal thumb phalanx. No other evidence of acute fracture or dislocation. Soft tissue swelling distal thumb. No retained metallic foreign body. IMPRESSION IMPRESSION: Acute comminuted tuft fracture thumb distal phalanx. Correlate with physical exam findings to exclude open fracture. Auger Machine Offbearer: LOWELL Transcribe Date/Time: Feb 01 2025 8:38A Dictated by : LUIS ANGEL ROGERS MD This examination was interpreted and the report reviewed and electronically signed by: LUIS ANGEL ROGERS MD on Feb 01 2025 8:41AM EST ASSESSMENT AND PLAN 1. Closed nondisplaced fracture of distal phalanx of right thumb, initial encounter - ICD9: (more content not included)... Normal [facility] CNTHERAPYon 02-03-2025 CNTHERAPY OT/PT/Speech Visit ( AKOTB) STEPHANY ROMERO ([id number]) 1990 F Date Time Provider Department 02/03/25 2:00 PM LISA STANLEY Date Time Provider Department Center 02/03/2025 2:00 PM [id number], ANAS*AKOTB [facility] Reason for Visit: OT EVAL [748] Primary Visit Diagnosis:Pain of right thumb [M79.644] Other Visit Diagnoses:Closed nondisplaced fracture of distal phalanx of right thumb, initial encounter [S62.526F] Sprain of metacarpophalangeal (MCP) joint of right thumb, initial encounter [S60.644O] Allergies As of Date: 02/03/2025 (No Known Allergies) Date Reviewed: 02/03/2025 Reviewed by: Jailene Luna PA-C - Fully Assessed Prescriptions as of 02/04/2025 - cephALEXin (KEFLEX) 500 mg capsule Take 1 capsule by mouth three times a day for 3 days. - levonorgestrel (MIRENA) 21 mcg/24 hours (8 yrs) 52 mg IUD Levonorgestrel (Mirena) 20 mcg/24 hours (8 yrs) 52 mg intrauterine device Active 1 DEVICE INTRA-UTER ONCE April 25, 2022 12:00am as a single dose - lisdexamfetamine (VYVANSE) 30 mg capsule 2 CAPS ORALLY ONCE A DAY 30 DAYS Normal [facility] ALLIED HEALTHon 02-01-2025 ALLIED HEALTH HNO ID: [id number] Author: BOB WICK RT(R) Service: Radiology Author Type: Technologist Type: Allied Health Filed: 02/01/2025 08:35 Note Text: Radiology Service Progress Note PATIENT NAME: Stephany ROMERO DATE OF SERVICE: February 01, 2025 TIME: 8:35 AM PATIENT IDENTITY VERIFICATION COMPLETED USING TWO (2) IDENTIFIERS: Name and Date of confirmed by patient verbally. FALL SCREENING: Has the patient had 2 falls in the last year or 1 fall with injury or currently using an Ambulatory Assistive Device (Walker, Cane, Wheelchair, Crutches, etc.)? No PATIENT GENDER DATA: Assigned female at . status: : No status: NO. PATIENT RELEVANT IMPLANT DATA REVIEWED: Not Applicable PATIENT PRESENTS WITH AN IMPLANTABLE OR ATTACHED HURL SHAKER: No RADIOLOGY DEPARTMENT: General X-ray: Exam(s) Completed: Upper Extremity X-Ray(s): Fingers/Thumb, right PERIPHERAL IV DATA: Not applicable SIGNED BY: Bob Wick RT(R) February 01, 2025 8:35 AM Normal [facility] ED NOTEon 02-01-2025 ED NOTE HNO ID: [id number] Author: REHANA CAMPUZANO RN Service: Nursing Author Type: Registered Nurse Type: ED Notes Filed: 02/01/2025 09:16 Note Text: Patient leaves pleasant and cooperative, alert and oriented x 3 with regular and easy respirations. Discharge instructions discussed. There are no additional questions for the provider. Will follow up as directed or return to ED for worsening or life threatening symptoms. Normal [facility] ED NOTE HNO ID: [id number] Author: REHANA CAMPUZANO RN Service: Nursing Author Type: Registered Nurse Type: ED Notes Filed: 02/01/2025 08:10 Note Text: Yesterday patient was at home when her right thumb was pinned between trampoline parts and a dumpster. She immediately had pain, swelling and noticed a skin tear. Today she has difficulty with ROM and continued pain. Normal [facility] ED PROV NOTEon 02-01-2025 ED PROV NOTE HNO ID: [id number] Author: MICHAEL GUILLORY DO Service: Emergency Medicine Author Type: Physician Type: ED Provider Notes Filed: 02/01/2025 09:25 Note Text: ED Provider Note Patient Name: Stephany ROMERO : 1990 SERVICE DATE: 02/01/25 History No chief complaint on file. Stephany ROMERO is a 34 year old female who presents with Right thumb injury. - Symptoms began 1 days prior to arrival. - Severity: moderate - Timing: constant - Quality: sore - Symptoms are associated with bruising, swelling to right thumb, numbness to tip of right thumb, skin avulsion. - Symptoms are not associated with fever. Patient presents with right thumb injury that occurred yesterday. She reports that they were throwing out a trampoline and her right thumb got smashed between a metal piece on the trampoline. She reports pain to the right thumb as well as, some numbness to the tip of the thumb. She also reports a skin avulsion to the right thumb. No pain in the rest of the right hand. No right wrist pain. She is right-hand dominant. Tdap is up-to-date. PAST MEDICAL HISTORY Diagnosis Date Hypertension Laceration of finger 07/22/2013 tip of finger, heal by 2* intention. Mental disorder depression off and on during this Nexplanon in place 10/31/[address] 01/11/2016 depression 2013 SAB (spontaneous ) (FORM[facility]LY [facility]) Vaginal delivery (FORM[facility]) 07/2013 vacuum delivery PAST SURGICAL HISTORY Procedure Laterality Date NONE FAMILY HISTORY Problem Relation Age of Onset Heart Father Breast Cancer Maternal Grandmother Diabetes Paternal Grandmother Social History[1] ALLERGIES No Known Allergies Review of Systems Constitutional: Negative for fever. Musculoskeletal: Positive for arthralgias (Right thumb) and joint swelling (Right thumb). Skin: Positive for color change (Bruising to right thumb) and wound (Skin avulsion right thumb). Neurological: Positive for numbness (Reports numbness to the tip of the right thumb). Psychiatric/Behavioral: Positive for confusion. Negative for agitation. Physical Exam Vitals [02/01/25 0802] BP Pulse Temp Temp src Resp SpO2 Weight Height 164/107 (!) 91 36.3 ?C (97.3 ?F) Temporal Art 16 100 % 52.2 kg (115 lb) -- Physical Exam Vitals and nursing note reviewed. Constitutional: Appearance: She is not toxic-appearing or diaphoretic. HENT: Head: Normocephalic and atraumatic. Eyes: Conjunctiva/sclera: Conjunctivae normal. Cardiovascular: Rate and Rhythm: Normal rate. Pulses: Normal pulses. Pulmonary: Effort: Pulmonary effort is normal. Breath sounds: Normal breath sounds. Musculoskeletal: Right wrist: No swelling, tenderness, bony tenderness or snuff box tenderness. Normal range of motion. Right hand: Tenderness (Right thumb) present. Decreased range of motion (IP joint of right thumb). Decreased sensation (Patient notes numbness to distal right thumb). Normal capillary refill. Comments: Right thumb: There is generalized tenderness to the right thumb. There is bruising and swelling along the ventral surface of the distal phalanx of the thumb with bruising extending to the proximal phalanx. There is limited range of motion at the IP joint. ROM intact at MCP joint. Capillary refill normal. Fingernail intact. No significant subungual hematoma. There is a 1.5 cm skin avulsion along the dorsum of the distal phalanx just proximal to the fingernail. No erythema or drainage. Compartments are compressible. Skin: General: Skin is warm and dry. Capillary Refill: Capillary refill takes less than 2 seconds. Neurological: Mental Status: She is alert and oriented to person, place, and time. GCS: GCS eye subscore is 4. GCS verbal subscore is 5. GCS motor subscore is 6. Psychiatric: Mood and Affect: Mood normal. Behavior: Behavior normal. Diagnostic Testing ED Labs Ordered and Reviewed - No data to display Procedures ED Course / Clinical Impression Clinical Impressions as of 02/01/25 0925 Comminuted, non-displaced fracture of distal phalanx of right thumb, initial encounter Skin avulsion MDM / Disposition / Plan Will obtain x-ray imaging of the right thumb. Motrin ordered for pain. XR DIGIT GENERAL 3V FRONTAL/LAT/OBL RIGHT Final Result IMPRESSION: Acute comminuted tuft fracture thumb distal phalanx. Correlate with physical exam findings to exclude open fracture. Auger Machine Offbearer: LOWELL Transcribe Date/Time: Feb 01 2025 8:38A Dictated by : LUIS ANGEL ROGERS MD This examination was interpreted and the report reviewed and electronically signed by: LUIS ANGEL ROGERS MD on Feb 01 2025 8:41AM EST On reevaluation: Patient resting in bed, no distress. Updated on results. I reviewed x-ray imaging with the patient. Her superficial skin avulsion appears to be proximal to the fracture site. We did discuss wound care. I did discuss putting her on a (more content not included)... Normal [facility] XR DIGIT 3V FRONTAL/LAT/OBL RTon 02-01-2025 XR DIGIT 3V FRONTAL/LAT/OBL RT * * *Final Report* * * DATE OF EXAM: Feb 01 2025 8:33AM LDX 5319 - XR DIGIT 3V FRONTAL/LAT/OBL RT / PROCEDURE REASON: Hand trauma, no prior imaging * * * * Physician Interpretation * * * * LEFT THUMB PA, OBLIQUE AND LATERAL: CLINICAL INDICATION: Recent left thumb injury with left thumb pain and swelling. COMPARISON: No relevant prior available. Acute comminuted nondisplaced fracture involving the tuft of the distal thumb phalanx. No other evidence of acute fracture or dislocation. Soft tissue swelling distal thumb. No retained metallic foreign body. IMPRESSION: Acute comminuted tuft fracture thumb distal phalanx. Correlate with physical exam findings to exclude open fracture. Auger Machine Offbearer: LOWELL Transcribe Date/Time: Feb 01 2025 8:38A Dictated by : LUIS ANGEL ROGERS MD This examination was interpreted and the report reviewed and electronically signed by: LUIS ANGEL ROGERS MD on Feb 01 2025 8:41AM EST [id number] Normal [facility] CT ABD/PEL W IVCONon 025 CT ABD/PEL W IVCON * * *Final Report* * * DATE OF EXAM: Oct 05 2024 7:37AM LD 0530 - CT ABD/PEL W IVCON / PROCEDURE REASON: R10.9 Abdominal pain R11.0 Nausea R63.4 Weight loss R11.10 Vomiting * * * * Physician Interpretation * * * * EXAMINATION: CT ABDOMEN AND PELVIS WITH IV CONTRAST CLINICAL HISTORY: Nausea, vomiting, abdominal pain, weight loss TECHNIQUE: CT of the abdomen and pelvis was performed using standard technique, scanning from just above the dome of the diaphragm to the symphysis pubis. MQ: CTAP_3 Contrast: IV: 100 ml of Omnipaque 350 : ml of CT Radiation dose: Integrated Dose-length product (DLP) for this visit = 270.41 mGy*cm. CT Dose Reduction Employed: Automated exposure control(AEC) and iterative recon COMPARISON: 03/26/2014 CT abdomen. 09/30/2024 right upper quadrant ultrasound RESULT: Liver: No mass. Biliary: No bile duct dilation. Gallbladder is partly collapsed Spleen: No mass. No splenomegaly. Pancreas: No mass or duct dilation. Adrenals: No mass. Kidneys: No CT evidence of pyelonephritis or hydronephrosis GI tract: No abnormal wall thickening or signs of mechanical bowel obstruction. Moderate volume retained gastric contents. Large volume of fecal material retained throughout the colon. No CT evidence of appendicitis Lymph nodes: No abdominal or pelvic lymphadenopathy. Mesentery/Peritoneum: No ascites or mass. Retroperitoneum: No mass. Vasculature: No aneurysm or large vessel thrombosis Pelvis: No mass, ascites or fluid collection. Intrauterine device Bones/Soft Tissues: No acute osseous abnormalities Lower thorax: Bilateral breast implants. Lung bases are clear Localizer images: IMPRESSION: No CT evidence of acute abnormality of the abdomen and pelvis Moderate volume retained gastric contents. Large volume of fecal material retained throughout the colon. Bilateral breast implants. Intrauterine device Auger Machine Offbearer: [employer] Transcribe Date/Time: Oct 05 2024 8:07A Dictated by : LIDIA BROOKS MD This examination was interpreted and the report reviewed and electronically signed by: LIDIA BROOKS MD on Oct 05 2024 8:22AM EST [id number] Normal [facility] CT Abdomen and Pelvis W cont rast Elias 10-05-2024 IMPRESSION: No CT evidence of acute abnormality of the abdomen and pelvis Moderate volume retained gastric contents. Large volume of fecal material retained throughout the colon. Bilateral breast implants. Intrauterine device Auger Machine Offbearer: [employer] Transcribe Date/Time: Oct 05 2024 8:07A Dictated by : LIDIA BROOKS MD This examination was interpreted and the report reviewed and electronically signed by: LIDIA BROOKS MD on Oct 05 2024 8:22AM EST [employer] [facility] * * *Final Report* * * DATE OF EXAM: Oct 05 2024 7:37AM [facility] 0530 - CT ABD/PEL W IVCON / PROCEDURE REASON: R10.9 Abdominal pain R11.0 Nausea R63.4 Weight loss R11.10 Vomiting * * * * Physician Interpretation * * * * EXAMINATION: CT ABDOMEN AND PELVIS WITH IV CONTRAST CLINICAL HISTORY: Nausea, vomiting, abdominal pain, weight loss TECHNIQUE: CT of the abdomen and pelvis was performed using standard technique, scanning from just above the dome of the diaphragm to the symphysis pubis. MQ: CTAP_3 Contrast: IV: 100 ml of Omnipaque 350 : ml of CT Radiation dose: Integrated Dose-length product (DLP) for this visit = 270.41 mGy*cm. CT Dose Reduction Employed: Automated exposure control(AEC) and iterative recon COMPARISON: 03/26/2014 CT abdomen. 09/30/2024 right upper quadrant ultrasound RESULT: Liver: No mass. Biliary: No bile duct dilation. Gallbladder is partly collapsed Spleen: No mass. No splenomegaly. Pancreas: No mass or duct dilation. Adrenals: No mass. Kidneys: No CT evidence of pyelonephritis or hydronephrosis GI tract: No abnormal wall thickening or signs of mechanical bowel obstruction. Moderate volume retained gastric contents. Large volume of fecal material retained throughout the colon. No CT evidence of appendicitis Lymph nodes: No abdominal or pelvic lymphadenopathy. Mesentery/Peritoneum: No ascites or mass. Retroperitoneum: No mass. Vasculature: No aneurysm or large vessel thrombosis Pelvis: No mass, ascites or fluid collection. Intrauterine device Bones/Soft Tissues: No acute osseous abnormalities Lower thorax: Bilateral breast implants. Lung bases are clear Localizer images: [employer] RADIOLOGY [facility] Provider, [facility] - 10/05/2024 * * *Final Report* * * DATE OF EXAM: Oct 05 2024 7:37AM [facility] 0530 - CT ABD/PEL W IVCON / PROCEDURE REASON: R10.9 Abdominal pain R11.0 Nausea R63.4 Weight loss R11.10 Vomiting * * * * Physician Interpretation * * * * EXAMINATION: CT ABDOMEN AND PELVIS WITH IV CONTRAST CLINICAL HISTORY: Nausea, vomiting, abdominal pain, weight loss TECHNIQUE: CT of the abdomen and pelvis was performed using standard technique, scanning from just above the dome of the diaphragm to the symphysis pubis. MQ: CTAP_3 Contrast: IV: 100 ml of Omnipaque 350 : ml of CT Radiation dose: Integrated Dose-length product (DLP) for this visit = 270.41 mGy*cm. CT Dose Reduction Employed: Automated exposure control(AEC) and iterative recon COMPARISON: 03/26/2014 CT abdomen. 09/30/2024 right upper quadrant ultrasound RESULT: Liver: No mass. Biliary: No bile duct dilation. Gallbladder is partly collapsed Spleen: No mass. No splenomegaly. Pancreas: No mass or duct dilation. Adrenals: No mass. Kidneys: No CT evidence of pyelonephritis or hydronephrosis GI tract: No abnormal wall thickening or signs of mechanical bowel obstruction. Moderate volume retained gastric contents. Large volume of fecal material retained throughout the colon. No CT evidence of appendicitis Lymph nodes: No abdominal or pelvic lymphadenopathy. Mesentery/Peritoneum: No ascites or mass. Retroperitoneum: No mass. Vasculature: No aneurysm or large vessel thrombosis Pelvis: No mass, ascites or fluid collection. Intrauterine device Bones/Soft Tissues: No acute osseous abnormalities Lower thorax: Bilateral breast implants. Lung bases are clear Localizer images: IMPRESSION IMPRESSION: No CT evidence of acute abnormality of the abdomen and pelvis Moderate volume retained gastric contents. Large volume of fecal material retained throughout the colon. Bilateral breast implants. Intrauterine device Auger Machine Offbearer: LOWELL Transcribe Date/Time: Oct 05 2024 8:07A Dictated by : LIDIA BROOKS MD This examination was interpreted and the report reviewed and electronically signed by: LIDIA BROOKS MD on Oct 05 2024 8:22AM EST [facility] Radiology Study observation (narrative) [facility] CT Abdomen and Pelvis W cont rast IVOrdered By: [facility]cf Provider on 10-05-2024 [facility] US ABD RIGHT UPPER QUADRANTo n 09-30-2024 US ABD RIGHT UPPER QUADRANT * * *Final Report* * * DATE OF EXAM: Sep 30 2024 9:36AM LDU 1032 - US ABD RIGHT UPPER QUADRANT / PROCEDURE REASON: R10.13 Acute epigastric pain * * * * Physician Interpretation * * * * EXAMINATION: RIGHT UPPER QUADRANT ULTRASOUND CLINICAL HISTORY: Epigastric abdominal pain TECHNIQUE: Sonography of the right upper quadrant was performed. Images were obtained and stored in a permanent archive. MQ: URUQ_2 COMPARISON: CT 03/26/2024 RESULT: Pancreas: Normal sonographic appearance. Portions obscured: tail Liver: Echotexture: Normal, homogeneous. Echogenicity: Normal Surface contour: Smooth Lesions: None. Biliary: No intrahepatic biliary duct dilation. CBD: 0.2 cm at the hilum. Gallbladder: Normal caliber -Contents: No cholelithiasis -Wall: Normal -Other: No pericholecystic fluid. Right Kidney: No hydronephrosis. Ascites: None. IMPRESSION: Normal sonographic appearance of the right upper quadrant. Auger Machine Offbearer: [employer] Transcribe Date/Time: Sep 30 2024 1:30P Dictated by : MAHAMED MIRANDA MD This examination was interpreted and the report reviewed and electronically signed by: MAHAMED MIRANDA MD on Sep 30 2024 1:31PM EST [id number] Normal [facility] 36on 07-23-2024 36 We have been unable to reach your patient to schedule their testing. Test Name: Transthoracic echocardiogram (TTE) complete with contrast, bubble, strain, and 3D PRN 1st attempt, via BUX message, 05/24/24 JS cancelled 05/22/24 2nd attempt -- voicemail cut off -- no message left -- 07/23/24 CLP Normal [facility] Genital Culture Comprehensiv bandar 04-21-2023 [facility] Reason for Exam: Vag inal discharge Vaginal discharge Normal vaginal jonah isolated. No yeast, Gardnerella, Neisseria or beta-hemolytic Streptococcus isolated. Normal [facility] Comment on above: Performed By: #### M 100.3200, #### [facility] [address] [place], [address] Gram Stainon 04-18-2023 Reason for Exam: Vag inal discharge Vaginal discharge Gram Stain 4+ Gram variable bryan 2+ Epithelial cells No Gram negative diplococci 1+ White Blood Cells Score = 10 Interpretation: 0-3 Normal, 4-6 Intermediate, 7-10 Positive BV Normal [facility] Comment on above: Performed By: #### M 100.3200, M1 #### [facility] [address] [place], [address] Gram stain for investigation of transfusion reactionOrdered By: Kylie Perez on 04-18-2023 Microscopic observation Gram stain Nom (Unsp spec) [facility] Community Case Manager Office Visit Reporton 04-18-2023 Community Case Manager Office Visit Report [facility] [address] [place] [address] OFFICE VISIT Date of Service: 04/18/23 MR#: [id number] Acct: [id number] Name: STEPHANY ROMERO Rep #: [id number] : 1990 Provider: CHRISTY hawkins Age/Sex: 32/F Location: [facility] Status: Signed Intake Vital Signs 05/17/22 15:14 04/18/23 10:29 04/18/23 10:35 Height 5 ft 3 in 5 ft 3 in 5 ft 3 in Weight: 122 lb 4 oz BMI 21.7 BP 126/74 H Intake Visit Reasons: Pelvic pain Chief Complaint: Pelvic pain Radiology Receptionist Required: No Is patient in pain?: No Allergies No Known Allergies Allergy (Verified 04/18/23 10:28) Medications dextroamphetamine-amphetamin e 15 mg tablet (Adderall) 15 mg PO DAILY 04/25/22 [History Confirmed 04/18/23] levonorgestrel 21 mcg/24 hours (8 yrs) 52 mg intrauterine device (Mirena) 1 device intrauterine ONCE 04/25/22 [History Confirmed 04/18/23] Is last menstrual period known: No Post menopausal: No Patient : No : No Nurse's Note: Patient does not have a menses d/t Mirena IUD. 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 and denies STD concerns. Denies vaginal irritation or odor History 2 Elective abortions Hx Para 2 Spontaneous abortions Hx # Term Pregnancies Ectopic pregnancies Hx # Pregnancies Multiple births # of living children Past Pregnancies Del. Date Name GA/Weeks Outcome Route Bth Weight Gen Labor Lgth Anesthesia Del Locatn Provider FOB 07/27/13 [facility] 42 live - full term 7lbs 11oz Male epidural [facility] Dr. Tom Campos 07/13/15 [place] 41 live - full term 7lbs 15oz Female epidural [facility] Dr. Tom Campos Delivery Date: 07/27/13 Last Updated by: Elaina Baum No issues during or delivery. Delivery Date: 07/13/15 Last Updated by: Elaina Baum No issues during or delivery. ROS Const Constitutional: Reports system reviewed and no additional complaints, except as documented Eyes Eyes: Reports system reviewed and no additional complaints, except as documented GI GI: Denies abdominal pain or change in bowel habits : Reports as per HPI Exam Const General: cooperative and no acute distress Nutritional Appearance: well nourished Orientation: oriented x3 General: bladder normal to palpation External Female Exam: normal external appearance and normal appearance of the urethra Urethra: normal appearance of the urethra Speculum Exam - Vagina: normal appearance of the vagina, normal vaginal discharge, no lesions and nontender Speculum Exam - Cervix: normal appearance of the cervix and other (smooth, nonfriable) Bimanual Exam- Vagina Uterus: normal bimanual exam, uterine size normal, bladder normal to palpation, uterine shape normal, uterine mobility normal and non-tender Bimanual Exam- Adnexa, other: normal adnexae, no masses and non-tender Coding Level of Care Code Off vis,est,level 3 Diagnoses Pain in female pelvis R10.2 IUD check up Z30.431 Assessment and Plan Assessment and Plan (1) Pain in female pelvis: (2) IUD check up: Orders: Orders Culture, Genital Comprehensive Today N89.8 - Other specified noninflammatory disorders of vagina Pelvic (Non ) Today R10.2 - Pelvic and perineal pain, Z30.431 - Encounter for routine checking of intrauterine contraceptive device Transvaginal Non- Today R10.2 - Pelvic and perineal pain, Z30.431 - Encounter for routine checking of intrauterine contraceptive device Plan comp vaginal culture and call positive Pelvic US and call results. Reassured change/increase in vaginal discharge can happen with mirena IUD (more content not included)... Normal [facility] Thin prep Papanicolaou smear with manual screeningOrdered By: Kylie Perez on 04-18-2023 Thin prep Papanicolaou smear with manual screening [facility] DBT Breast - bilateral diagn osticon 07-24-2022 Patient Name: STEPHANY ROMERO : 1990 Exam Date/Time: 07/24/2022 07:54 Procedure: BI MAMMOGRAM DIAGNOSTIC TOMOSYNTHESIS BILATERAL Ordering Provider: SIMS LISA Reason For Exam: LUMP IN BREAST COMPARISONS: There were no priors available for comparison. MAMMOGRAM: Image views: 2D CC and MLO views were acquired. 3D CC and MLO views were acquired. Markings on images: BB's = Nipples; skin lesions Open nooksack = Palpable Line = Scar TISSUE DENSITY: BIRADS C - The breast tissue is heterogeneously dense, which could obscure underlying abnormalities. Images were reviewed with CAD. FINDINGS: The patient is a 32-year-old who presents with a palpable lump in the upper-outer quadrant of the left breast at. An open circular marker was placed on the skin marking the area of palpable concern. Fatty and fibroglandular tissue is present deep to the marker. No spiculated masses, parenchymal distortion or suspicious tumor calcifications are seen. There is no skin thickening or nipple retraction. The patient was sent for ultrasound. BREAST ULTRASOUND: FINDINGS: A sonogram of the left breast was performed and targeted to the area of palpable concern at the 2:00 position 5 cm from the nipple. No mass or focal abnormality is identified. [facility] RADIOLOGY SYSTEM Anita Leon MD - 07/24/2022 [facility] Name: [facility] 1990 [id number] Exam Date/Time: 07/24/2022 07:54 Procedure: BI MAMMOGRAM DIAGNOSTIC TOMOSYNTHESIS BILATERAL Ordering Provider: SIMS LISA Reason For Exam: LUMP IN BREAST COMPARISONS: There were no priors available for comparison. MAMMOGRAM: Image views: 2D CC and MLO views were acquired. 3D CC and MLO views were acquired. Markings on images: BB's = Nipples; skin lesions Open nooksack = Palpable Line = Scar TISSUE DENSITY: BIRADS C - The breast tissue is heterogeneously dense, which could obscure underlying abnormalities. Images were reviewed with CAD. FINDINGS: The patient is a 32-year-old who presents with a palpable lump in the upper-outer quadrant of the left breast at. An open circular marker was placed on the skin marking the area of palpable concern. Fatty and fibroglandular tissue is present deep to the marker. No spiculated masses, parenchymal distortion or suspicious tumor calcifications are seen. There is no skin thickening or nipple retraction. The patient was sent for ultrasound. BREAST ULTRASOUND: FINDINGS: A sonogram of the left breast was performed and targeted to the area of palpable concern at the 2:00 position 5 cm from the nipple. No mass or focal abnormality is identified. IMPRESSION: No mass or focal abnormality is identified in the area of palpable concern. Correlate clinically. ASSESSMENT: Category 1 Negative RECOMMENDATION: Clinical correlation Routine screening is recommended based on the follow-up breast cancer risk assessment. Report Dictated on Electronically Signed By: Anita Leon Electronically Signed Date/Time: 07/24/2022 9:15 AM EST [facility] Radiology Study observation (narrative) [facility] No Panel Informationon 07-24 No mass or focal abn ormality is identified in the area of palpable concern. Correlate clinically. ASSESSMENT: Category 1 Negative RECOMMENDATION: Clinical correlation Routine screening is recommended based on the follow-up breast cancer risk assessment. Report Dictated on Electronically Signed By: Anita Leon Electronically Signed Date/Time: 07/24/2022 9:15 AM EST [facility] [employer] SYSTEM No Panel InformationOrdered By: Anita Leon on 07-24-2022 [employer] Phone: US Breast - left limitedon 0 07-24-2022 Patient Name: STEPHANY ROMERO : 1990 Exam Date/Time: 07/24/2022 08:35 Procedure: BI US BREAST LIMITED LEFT Ordering Provider: SIMS LISA Reason For Exam: LUMP IN BREAST COMPARISONS: There were no priors available for comparison. MAMMOGRAM: Image views: 2D CC and MLO views were acquired. 3D CC and MLO views were acquired. Markings on images: BB's = Nipples; skin lesions Open nooksack = Palpable Line = Scar TISSUE DENSITY: BIRADS C - The breast tissue is heterogeneously dense, which could obscure underlying abnormalities. Images were reviewed with CAD. FINDINGS: The patient is a 32-year-old who presents with a palpable lump in the upper-outer quadrant of the left breast at. An open circular marker was placed on the skin marking the area of palpable concern. Fatty and fibroglandular tissue is present deep to the marker. No spiculated masses, parenchymal distortion or suspicious tumor calcifications are seen. There is no skin thickening or nipple retraction. The patient was sent for ultrasound. BREAST ULTRASOUND: FINDINGS: A sonogram of the left breast was performed and targeted to the area of palpable concern at the 2:00 position 5 cm from the nipple. No mass or focal abnormality is identified. [facility] Anita Leon MD - 07/24/2022 Patient Name: STEPHANY ROMERO : 1990 Exam Date/Time: 07/24/2022 08:35 Procedure: BI US BREAST LIMITED LEFT Ordering Provider: SIMS LISA Reason For Exam: LUMP IN BREAST COMPARISONS: There were no priors available for comparison. MAMMOGRAM: Image views: 2D CC and MLO views were acquired. 3D CC and MLO views were acquired. Markings on images: BB's = Nipples; skin lesions Open nooksack = Palpable Line = Scar TISSUE DENSITY: BIRADS C - The breast tissue is heterogeneously dense, which could obscure underlying abnormalities. Images were reviewed with CAD. FINDINGS: The patient is a 32-year-old who presents with a palpable lump in the upper-outer quadrant of the left breast at. An open circular marker was placed on the skin marking the area of palpable concern. Fatty and fibroglandular tissue is present deep to the marker. No spiculated masses, parenchymal distortion or suspicious tumor calcifications are seen. There is no skin thickening or nipple retraction. The patient was sent for ultrasound. BREAST ULTRASOUND: FINDINGS: A sonogram of the left breast was performed and targeted to the area of palpable concern at the 2:00 position 5 cm from the nipple. No mass or focal abnormality is identified. IMPRESSION: No mass or focal abnormality is identified in the area of palpable concern. Correlate clinically. ASSESSMENT: Category 1 Negative RECOMMENDATION: Clinical correlation Routine screening is recommended based on the follow-up breast cancer risk assessment. Report Dictated on Electronically Signed By: Anita Leon Electronically Signed Date/Time: 07/24/2022 9:15 AM EST [facility] Radiology Study observation (narrative) [facility] Genital Culture Comprehensiv bandar 05-20-2022 VAC Reason for Exam: Vag inal odor Vaginal odor Normal vaginal jonah isolated. No yeast, Neisseria or beta-hemolytic Streptococcus isolated. G. vaginalis (Presumptive) Amount Growth 3+ Normal [facility] Comment on above: Performed By: #### M 100.3200, M100.1999 #### [facility] [address] [place], [place], [id number] Gram Stainon 05-17-2022 Reason for Exam: Vag inal odor Vaginal odor Gram Stain 1+ Epithelial cells Rare Gram positive cocci Rare Gram positive rods 1+ Gram variable bryan Score = 5 Interpretation: 0-3 Normal, 4-6 Intermediate, 7-10 Positive BV Normal [facility] Comment on above: Performed By: #### M 100.3200, M100.2000 #### [facility] [address] [place], [address] No Panel Informationon 05-17 POC Bacterial Vaginitis (Rapid) Negative [facility] Work Phone: Community Case Manager Office Visit Reporton 05-17-2022 Community Case Manager Office Visit Report [facility] [address] [place] [address] OFFICE VISIT Date of Service: 05/17/22 MR#: [id number] Acct: [id number] Name: STEPHANY ROMERO Rep #: [id number] : 1990 Provider: CHRISTY hawkins Age/Sex: 31/F [place] [facility] [place] Status: Signed Intake Vital Signs 05/17/22 15:10 05/17/22 15:14 Height 5 ft 3 in 5 ft 3 in Weight: 132 lb 6 oz BMI 23.4 BP 112/76 Intake Visit Reasons: possible infection? odor Chief Complaint: Vaginal odor Radiology Receptionist Required: No Is patient in pain?: No Allergies No Known Allergies Allergy (Verified 05/17/22 15:09) Medications dextroamphetamine-amphetamin e 15 mg tablet (Adderall) 15 mg PO DAILY 04/25/22 [History Confirmed 05/17/22] levonorgestrel 20 mcg/24 hours (8 yrs) 52 mg intrauterine device (Mirena) 1 device intrauterine ONCE 04/25/22 [History Confirmed 05/17/22] Is last menstrual period known: Yes Last Menstrual Period: 04/25/22 Post menopausal: No Patient : No : No Nurse's Note: Patient states she has a vaginal odor and an increase in discharge. Patient was in office for a string check on 04/25/2022 and states she did not notice the odor at that time and that it she just recently noticed it. [facility] Medical History Alcohol use Contraceptive management History of hiatal hernia Non-smoker Wears glasses Surgical History History of esophagogastroduodenoscopy (EGD) Status post bilateral salpingectomy ( 03/06/22) Family History Grandmother Breast cancer Father Heart disease Social History Smoking Status: Never smoker alcohol intake: current alcohol intake frequency: holidays/special occasions only substance use type: does not use caffeine: Yes what type of physical activity do you participate in: walking frequency: 1-2 times per week seatbelt use: sometimes do you feel safe at home: Yes 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 odor Details: STEPHANY ROMERO is a 31 year old who presents for vaginal odor with increased discharge for 2 weeks. Used AZO cranberry po without benefit. Same sexual partner. Female Reproductive History Last Menstrual Period: 04/25/22 History 2 Elective abortions Hx Para 2 Spontaneous abortions Hx # Term Pregnancies Ectopic pregnancies Hx # Pregnancies Multiple births # of living children Past Pregnancies Del. Date Name GA/Weeks Outcome Route Bth Weight Infant Gen Labor Lgth Anesthesia Del Locatn Provider FOB 07/27/13 Conrad 42 live - full term 7lbs 11oz Male epidural [facility] Dr. Tom Campos 07/13/15 Racquel 41 live - full term 7lbs 15oz Female epidural [facility] Dr. Tom Campos Delivery Date: 07/27/13 Last Updated by: Elaina Baum No issues during or delivery. Delivery Date: 07/13/15 Last Updated by: Elaina Baum No issues during or delivery. ROS Const Constitutional: Reports system reviewed and no additional complaints, except as documented Eyes Eyes: Reports system reviewed and no additional complaints, except as documented GI GI: Denies abdominal pain or change in bowel habits : Reports as per HPI Exam Const General: cooperative and no acute distress Nutritional Appearance: well nourished Orientation: oriented x3 External Female Exam: normal external appearance Speculum Exam - Vagina: normal appearance of the vagina and abnormal vaginal discharge malodorous and bloody Speculum Exam - Cervix: normal appearance of the cervix (IUD strings at os) Bimanual Exam- Vagina Uterus: normal bimanual exam, uterine size normal and non-tender Bimanual Exam- Adnexa, other: normal adnexae, no masses and non-tender Coding Level of Care Code Off vis,est,level 3 Diagnoses Vaginal discharge N89.8 Vaginal odor N89.8 Assessment and Plan Assessment and Plan (1) Vaginal discharge: Status: Acute (2) Vaginal odor: Plan Dwight BV and comp vaginal culture, call results. 05/17/22 1526 Date Kylie Kirkland CARGO BROKER CARGO BROKER-C Cosigner Signature: Date (if applicable) CC: Normal [facility] Community Case Manager Office Visit Reporton 04-25-2022 Community Case Manager Office Visit Report [facility] [address] [place] [address] OFFICE VISIT Date of Service: 04/25/22 MR#: [id number] Acct: [id number] Name: STEPHANY ROMERO Rep #: [id number] : 1990 Provider: Dr. Olamide Ngerete DO Age/Sex: 31/F [place] [facility] [place] Status: Signed Intake Vital Signs 01/25/22 11:03 03/06/22 07:53 04/25/22 11:26 04/25/22 11:26 Height 5 ft 3 in 5 ft 3 in 5 ft 3 in 5 ft 3 in Weight: 135 lb 6 oz BMI 24.0 BP 144/91 H Intake Visit Reasons: 6 wk string check Radiology Receptionist Required: No Is patient in pain?: No Allergies No Known Allergies Allergy (Verified 04/25/22 11:24) Medications dextroamphetamine-amphetamin e 15 mg tablet (Adderall) 15 mg PO DAILY 04/25/22 [History Confirmed 04/25/22] levonorgestrel 20 mcg/24 hours (8 yrs) 52 mg intrauterine device (Mirena) 1 device intrauterine ONCE 04/25/22 [History Confirmed 04/25/22] Post menopausal: No Patient : No : No PFSH Medical History (Updated 04/25/22 @ 11:30 by Elaina Baum) Alcohol use Contraceptive management History of hiatal hernia Non-smoker Wears glasses Surgical History (Updated 04/25/22 @ 11:26 by Elaina Baum) History of esophagogastroduodenoscopy (EGD) Status post bilateral salpingectomy ( 03/06/22) Family History Grandmother Breast cancer Father Heart disease Social History Smoking Status: Never smoker alcohol intake: current alcohol intake frequency: holidays/special occasions only substance use type: does not use caffeine: Yes what type of physical activity do you participate in: walking frequency: 1-2 times per week seatbelt use: sometimes do you feel safe at home: Yes 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 She has a mild period right now but no clotting as she had prior to the IUD. no pain with sex or other complaints. History 2 Elective abortions Hx Para 2 Spontaneous abortions Hx # Term Pregnancies Ectopic pregnancies Hx # Pregnancies Multiple births # of living children Past Pregnancies Del. Date Name GA/Weeks Outcome Route Bth Weight Infant Gen Labor Lgth Anesthesia Del Locatn Provider FOB 07/27/13 Conrad 42 live - full term 7lbs 11oz Male epidural [facility] Dr. Tom Campos 07/13/15 Racquel 41 live - full term 7lbs 15oz Female epidural [facility] Dr. Tom Campos Delivery Date: 07/27/13 Last Updated by: Elaina Baum No issues during or delivery. Delivery Date: 07/13/15 Last Updated by: Elaina Baum No issues during or delivery. ROS Const ROS Unobtainable: All systems reviewed are unremarkable except as noted in H Resp Resp: Reports system reviewed and no additional complaints, except as documented; Denies cough GI GI: Reports as per HPI Psych Psych: Reports system reviewed and no additional complaints, except as documented Exam Const General: cooperative, healthy appearing, comfortable and no acute distress Resp Effort Inspection: normal respiratory effort General: bimanual renal exam normal bilaterally External Female Exam: normal appearance of the urethra Urethra: normal appearance of the urethra Speculum Exam - Vagina: normal appearance of the vagina Speculum Exam - Cervix: normal appearance of the cervix Bimanual Exam- Adnexa, other: normal adnexae and normal Pelvic Support: normal Other: The IUD strings appear normal and adequately placed IUD is suspected based on the exam today. Skin General: no rashes or lesions noted Psych Appearance: grossly normal Speech and Movement: speech and movement normal Coding Level of Care Code Off vis,est,level 3 Diagnoses Menorrhagia with irregular cycle N92.1 Contraceptive management Z30.9 Assessment and Plan Assessment and Plan (1) Menorrhagia with irregular cycle: Status: Acute (2) Contraceptive management: Status: Acute Comment: No PA required for Mirena device and placement. call reference # [id number] Plan: status post bilateral salpingectomy and placement of IUD for menses control. pt doing well. return in a year. 04/25/22 1147 Date lOamide Guevara DO [facility] Signature: Date (if applicable) CC: Normal [facility] Basophil percentageon 2021 WBC (Bld) [#/Vol] 6.0 10*3/uL 4.4-11.0 [facility] Work Phone: Blood erythrocytes count (nu mber/volume)on 03-06-2022 RBC (Bld) [#/Vol] 4.01 10*6/uL 4.2-5.4 [facility] Work Phone: Blood hemoglobin measurement (mass/volume)on 03-06-2022 Hemoglobin (Bld) [Mass/Vol] 13.0 g/dL 12.0-15.[address] [facility] Work Phone: Blood platelet mean volumeon 03-06-2022 Platelet mean volume (Bld) [Entitic vol] 9.2 fL 6.2-12.[address] [facility] Work Phone: Determination of erythrocyte mean corpuscular volume (MCV)on 03-06-2022 MCV (RBC) [Entitic vol] 97.0 fL 81-[address] [facility] Work Phone: Hematocrit Auto (Bld) [Volum e fraction]on 03-06-2022 Hematocrit (Bld) [Volume fraction] 38.9 % 37-[address] [facility] Work Phone: Laboratory - Chemistry and C hemistry - challengeon 03-06-2022 HCG ( test) Ql (U) Negative [facility] Work Phone: Comment on above: Very dilute urine sp ecimens, as indicated by a low specificgravity, may not contain public relations representative levels of hCG. If is still suspected, a first morning urinespecimen should be collected 48 hours later and tested. Laboratory - Hematology and Cell countson 03-06-2022 Erythrocyte distribution width (RBC) [Entitic vol] 42.3 fL 35.1-43.[address] [facility] Work Phone: Erythrocyte distribution width (RBC) [Ratio] 11.7 % 11.6-14.[address] [facility] Work Phone: MCH (RBC) [Entitic mass] 32.4 pg 27.0-32.[address] [facility] Work Phone: MCHC Auto (RBC) [Mass/Vol]on 03-06-2022 MCHC (RBC) [Mass/Vol] 33.4 g/dL 32-[address] [facility] Work Phone: Platelets bldon 03-06-2022 Platelets (Bld) [#/Vol] 312 10*3/uL 150-[address] [facility] Work Phone: Angel 12-15-2021 CNOV Office Visit ([facility]ALK[facility] ) STEPHANY ROMERO Julia ([id number]) 1990 F Date Time Provider Department 12/15/21 9:45 AM LACHO JONES During your visit today, we recorded the following information about you: Temperature Pulse Blood pressure Weight 98.8 degrees 71/minute 133/85 60.8 kg Height 1.575 m Lacho Jones PA-C 12/15/2021 10:02 AM Signed Strep Pharyngitis You have had a positive test for strep throat. Strep throat is a contagious illness. It's spread by coughing, kissing, sharing glasses or eating utensils, or by touching others after touching your mouth or nose. Symptoms include throat pain that is worse with swallowing, aching all over, headache, swollen lymph nodes at the front of the neck, and red swollen tonsils sometimes with white patches and fever. It's treated with antibiotic medicine. This should help you start to feel better in 1 to 2 days. Home care Rest at home. Drink plenty of fluids so you won't get dehydrated. No work or school for the first 2 days of taking the antibiotics. You can then return to school or work if you are feeling better, have been taking the antibiotic for at least 24 hours and don't have a fever. Take antibiotic medicine for the full 10 days, even if you feel better. This is very important to ensure the infection is treated completely. It's also important to prevent medicine-resistant germs from developing. If you were given an antibiotic shot, you don't need any more antibiotics. You may use acetaminophen or ibuprofen to control pain or fever, unless another medicine was prescribed for this. Talk with your healthcare provider before taking these medicines if you have chronic liver or kidney disease or if you have had a stomach ulcer or gastrointestinal bleeding. Throat lozenges or sprays help reduce pain. Gargling with warm saltwater will also reduce throat pain. Dissolve 1/2 teaspoon of salt in 1 glass of warm water. This may be useful just before meals. Soft foods and cool or warm fluids are best. Don't eat salty or spicy foods. Follow-up care Follow up with your healthcare provider or our staff if you don't get better over the next week. When to get medical advice Call your healthcare provider right away or get immediate medical care if any of these occur: - Fever of 100.4?F (38?C) or higher, or as directed by your healthcare provider - New or worsening ear pain, sinus pain, or headache - Painful lumps in the back of neck - Stiff neck - Lymph nodes getting larger or becoming soft in the middle - You have trouble swallowing liquids or you can't open your mouth wide because of throat pain - Signs of dehydration. These include very dark urine or no urine, sunken eyes, and dizziness. - Noisy breathing - Muffled voice - Rash Call 911 Call 911right away if you: - Have trouble breathing - Can't swallow or talk Prevention Here are steps you can take to help prevent an infection: - Wash your hands often with soap and clean, running water for at least 20 seconds. - Don?t have close contact with people who have sore throats, colds, or other upper respiratory infections. - Don?t smoke, and stay away from secondhand smoke. Lacho Jones PA-C 12/15/2021 10:52 AM Signed Subjective Stephanykaity ROMERO is a 31 year old female with no significant past medical history who presents to [facility] today for evaluation of sore throat, myalgias, and headache x 2 days. She states that she was exposed to COVID-19 yesterday. She does endorse having a fever of 101 ?F last night. Review of Systems Constitutional: Negative for chills, diaphoresis and fever. HENT: Positive for sore throat. Negative for congestion and ear pain. Eyes: Negative for discharge and redness. Respiratory: Negative for cough and shortness of breath. Musculoskeletal: Positive for myalgias. Negative for back pain. Skin: Negative for rash and wound. Neurological: Positive for headaches. All other systems reviewed and are negative. Objective BP 133/85 Pulse 71 Temp 37.1 ?C (98.8 ?F) Ht 157.5 cm (5' 2") Wt 60.8 kg (134 lb) LMP 09/10/2020 SpO2 99% BMI 24.51 kg/m? Physical Exam Vitals reviewed. Constitutional: General: She is not in acute distress. Appearance: Normal appearance. She is normal weight. She is not ill-appearing or toxic-appearing. Comments: The patient appears to be non-toxic, in no acute distress, and resting comfortably on a chair. HENT: Head: Normocephalic and atraumatic. Mouth/Throat: Mouth: Mucous membranes are moist. Pharynx: Oropharynx is clear. Uvula midline. Posterior oropharyngeal erythema present. No oropharyngeal exudate or uvula swelling. Tonsils: No tonsillar exudate. 1+ on the right. 1+ on the left. Eyes: Extraocular Movements: Extraocular movements intact. Cardiovascular: Rate and Rhythm: Normal rate and (more content not included)... Normal [facility] Coronavirus 2019on 0 COVID 19 Result CARGO BROKER Negative Normal Negative for COVID19 (SARS CoV2) by PCR. [facility] Comment on above: Result Comment: This test was developed and its performance characteristics determined by [facility]'s [facility] [place]. This test has been authorized by FDA under an Emergency Use Authorization (EUA). This test has been validated in accordance with the FDA's Guidance Document "Policy for Diagnostics Testing in Laboratories Certified to Perform High Complexity Testing under CLIA prior to Emergency use Authorization for Coronavirus Disease 2019 during the Public Health Emergency" issued on August 08, 2019. Performed By: #### C OVID #### [facility] [address] [facility] [phone] [place] [address] [place] [address] COVID 19 Source CARGO BROKER UPPER RESPIRATORY TRACT SWAB Normal [facility] Comment on above: Performed By: #### C OVID #### [facility] [address] [facility] [phone] [place] [address] [place] [address] ED NOTEon 04-28-2020 ED NOTE HNO ID: [id number] Author: Meena ZavalaRn) LORENA Douglas Service: Nursing Author Type: Registered Nurse Type: ED Notes Filed: 04/28/2020 8:36 PM Note Text: Pt presents to the ED for CC COVID-19 symptoms since Saturday. md physician dermatologist, instructed to come and get tested Normal [facility] ED NOTE HNO ID: [id number] Author: Meena Sanchez) LORENA Douglas Service: Nursing Author Type: Registered Nurse Type: ED Notes Filed: 04/28/2020 8:36 PM Note Text: Flu/COVID swab done to bilat. nares, pt tolerated well. Specimen sent to lab on ice. Discharge instructions d/w pt at bedside. Stated understanding with no further questions for this nurse. Encouraged f/u with PCP and referring doctors given. Stated understanding. Prescription(S) were given X0. 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 Her symptoms began last Saturday, 5 days ago. 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 Additionally her daughter has had a sore throat. She does have a mild headache she denies any loss of sense of taste or smell denies cough or shortness of breath denies diarrhea or loose stools. She has been self isolating. Her neck shift is on Saturday. PAST MEDICAL HISTORY Diagnosis Date - Hypertension - Laceration of finger 07/22/2013 tip of finger, heal by 2* intention. - Mental disorder depression off and on during this - Nexplanon in place 10/31/2015 Left - Nexplanon in place 01/11/2016 - depression 2013 - SAB (spontaneous ) - Vaginal delivery 07/2013 vacuum delivery PAST SURGICAL HISTORY Procedure Laterality Date - NONE FAMILY HISTORY Problem Relation Age of Onset - Heart Father - Breast Cancer Maternal Grandmother - Diabetes Paternal Grandmother Social History Tobacco Use - Smoking status: Never Smoker - Smokeless tobacco: Never Used Substance and Sexual Activity - Alcohol use: No - Drug use: No - Sexual activity: Yes Partners: Male ALLERGIES No Known Allergies Review of Systems Constitutional: Negative for activity change, appetite change, chills, diaphoresis and fever. HENT: Negative for congestion. Eyes: Negative for visual disturbance. Respiratory: Negative for shortness of breath. Cardiovascular: Negative for chest pain and leg swelling. Gastrointestinal: Negative for abdominal pain. Endocrine: Negative for polyuria. Genitourinary: Negative for dysuria and frequency. Musculoskeletal: Negative for myalgias and neck pain. Skin: Negative for color change. Allergic/Immunologic: Negative for immunocompromised state. Neurological: Negative for dizziness and weakness. Hematological: Does not bruise/bleed easily. Psychiatric/Behavioral: Negative for sleep disturbance. Physical Exam BP 133/105 Pulse 95 Temp (Src) 97.6 (Oral) Resp 18 Ht 5' 2" (1.58m) Wt 145 lb (65.8kg) SpO2 99% LMP 06/04/2017 BMI 26.51 kg/(m2). O2 Therapy: Room Air Physical Exam Vitals signs and nursing note reviewed. Constitutional: General: She is not in acute distress. Appearance: Normal appearance. She is not ill-appearing, toxic-appearing or diaphoretic. HENT: Head: Normocephalic and atraumatic. Right Ear: Tympanic membrane normal. Left Ear: Tympanic membrane normal. Nose: Nose normal. Mouth/Throat: Mouth: Mucous membranes are moist. Pharynx: Oropharynx is clear. No posterior oropharyngeal erythema. Eyes: Extraocular Movements: Extraocular movements intact. Pupils: Pupils are equal, round, and reactive to light. Neck: Musculoskeletal: Normal range of motion and neck supple. No muscular tenderness. Cardiovascular: Rate and Rhythm: Normal rate and regular rhythm. Pulses: Normal pulses. Heart sounds: Normal heart sounds. No murmur. No friction rub. No gallop. Pulmonary: Effort: Pulmonary effort is normal. No respiratory distress. Breath sounds: Normal breath sounds. No stridor. No wheezing, rhonchi or rales. Chest: Chest wall: No tenderness. Abdominal: General: Abdomen is flat. Bowel sounds are normal. Palpations: Abdomen is soft. Tenderness: There is no abdominal tenderness. There is no right CVA tenderness, left CVA tenderness, guarding or rebound. Musculoskeletal: Normal range of motion. General: No swelling or tenderness. Right lower leg: No edema. Left lower leg: No edema. Skin: General: Skin is warm and dry. Capillary Refill: Capillary refill takes less than 2 seconds. Neurological: General: No focal deficit present. Mental Status: She is alert and oriented to person, place, and time. Mental status is at baseline. Cranial Nerves: No cranial nerve deficit. Sensory: No sensory deficit. Motor: No weakness. Psychiatric: Mood and Affect: Mood normal. Behavior: Behavior normal. Judgment: Judgment normal. Diagnostic Testing ED Labs Ordered and Reviewed - No data to display Procedures ED Course / Clinical Impression Clinical Impressions as of Apr 28 2035 Suspected COVID-19 virus infection Sore throat COVID-19 test performed per [facility] policy for suspected COVID community exposure. MDM / Disposition / Plan She is tested for COVID-19 discharge home with [facility] COVID-19 instructions to self isolate, follow-up with her primary care provider in 2 to 3 days return to ED for shortness of breath inability to tolerate fluids COVID-19 other viral pharyngitis considered as differential diagnoses. Disposition The patient was discharged. Counseled patient regarding suspected diagnosis. As well as the need for follow-up. Discharged home with verbal and written instructions. They were instructed to return as needed for persistent or worsening symptoms or any new concerns. Condition at disposition is stable. SIGNATURE: MD Jameson Markham 04/28/202034 [facility] US Thyroid/Parathyroidon US Thyroid/Parathyroid Patient Name: STEPHANY ROMERO Ultrasound Exam Date/Time 07/01/2017 15:05:00 EST Exam US Parathyroid Ordering Physician DO SIMS LISA Accession Number [id number] CPT4 Codes 67253 () Reason For Exam THYROID DISEASE Report Exam type: Ultrasound thyroid. CLINICAL INDICATION: Thyroid nodules. COMPARISON: None. TECHNIQUE: Grayscale sonographic images were obtained of the thyroid. Color Doppler was utilized. FINDINGS: Right Lobe: Echotexture: Homogeneous Size: 1.6 x 1.6 x 4.5 cm. Left Lobe: Echotexture: Homogeneous Size: 1.7 x 1.5 x 4.3 cm. The isthmus measures 2.6 millimeters in thickness. Thyroid nodules are as follows: Location: Right midpole Size: 3 x 4 x 5 mm Composition: Solid Echogenicity: Hypoechoic Margins: Well-defined Microcalcifications: None Acoustic enhancement: None Level of suspicion: TI-RADS* category four: Moderately suspicious Comparison to prior exam: Not applicable Location: Right lower pole Size: 1.4 x 1.3 x 1.0 cm Composition: Cystic Echogenicity: Anechoic Margins: Well-defined Microcalcifications: None Acoustic enhancement: None Level of suspicion: TI-RADS* category one: Benign. Comparison to prior exam: Not applicable Impression: Two right-sided thyroid nodules as described above. These nodules do not meet size criteria for FNA biopsy or ultrasound follow-up. *TI-RADS (2017) Reference: Betsey Powell. ACR Thyroid Imaging, Reporting and Data System (TI-RADS): White Paper of the ACR TI RADS Committee. J [employer]. September 2016 Risk for malignancy: TI-RADS 1 - 0 points - (benign) <2% risk TI-RADS 2 - 2 points - (not suspicious) <5% TI-RADS 3 - 3 points - (mildly suspicious) <5% - FNA when >/= 2.5cm. Follow when >1.5cm at 1, 3 and 5 years TI-RADS 4 - 4-6 points - (moderately suspicious) 5-20% - FNA when >/= 1.5cm. Follow when >1cm at 1, 2, 3 and 5 years TI-RADS 5 - 7+ points - (highly suspicious) >20% - FNA when >/= 1cm. Follow when >0.5cm every year for up to 5 years Report Dictated on Final Dictating Physician: MD PACHECO YUN ROBERT Signed Date and Time: 07/01/2017 4:18 pm Signed by: MD PACHECO YUN ROBERT Transcribed Date and Time: 07/01/2017 4:19 Normal [facility] Activated PTTon 06-18-2017 aPTT 28.8 s Normal 23.0-32.4 [facility] Comment on above: Result Comment: Note new reference range. Performed By: #### L APTT ####[facility] [place] [address] Basic Panelon 06-18-2017 Anion gap 17 mmol/L Normal 8-20 [facility] Comment on above: Performed By: #### L P8 ####[place] [address] BUN (urea nitrogen) 9 mg/dL Normal 7-25 [facility] Comment on above: Performed By: #### L P8 ####[place] [address] BUN/Creatinine Ratio 15 mg/mg Normal 10-20 [facility] Comment on above: Performed By: #### L P8 ####[place] [address] Calcium 9.0 mg/dL Normal 8.5-10.1 [facility] Comment on above: Performed By: #### L P8 ####[place] [address] Chloride 103 mmol/L Normal 98-107 [facility] Comment on above: Performed By: #### L P8 ####[place] [address] CO2 20 mmol/L Low 21-32 [facility] Comment on above: Performed By: #### L P8 ####[place] [address] Creatinine 0.59 mg/dL Normal 0.51-0.95 [facility] Comment on above: Performed By: #### L P8 ####[place] [address] Glucose mass conc 74 mg/dL Normal 70-99 [facility] Comment on above: Performed By: #### L P8 ####[place] [address] Potassium molar conc 3.4 mmol/L Low 3.5-5.1 [facility] Comment on above: Performed By: #### L P8 ####[facility] [place], [place] [address] Sodium 137 mmol/L Normal 136-145 [facility] Comment on above: Performed By: #### L P8 ####[facility] [place], [place] [address] CHEST 1 VIEWon 06-18-2017 CHEST [address] [facility] APPROVED BY: DOTTY GONZALEZ MD EXAMINATION: CHEST RADIOGRAPH (SINGLE VIEW AP OR PA) Clinical History: Left-sided facial numbness/tinglingM: [id number]: 10/02/2012 RESULT: Lines, tubes, and devices: None. Lungs and pleura: No consolidation. No lung mass. No pleural effusion. Cardiomediastinal silhouette: Normal cardiomediastinal silhouette. Other: Visualized osseous structures appear within normal limits. IMPRESSION:There has been no significant change. No acute radiographic abnormality. Normal [facility] CT ANGIO NECKon 06-18-2017 CT ANGIO NECK Performed at [facility] APPROVED BY: BEREKET RICHARDSON MD INTRACRANIAL AND CERVICAL CTA WITH IV CONTRAST History: Sudden onset bilateral facial tingling and left arm numbness. Evaluate for acute hemorrhage, infarct, or other underlying structural etiology. Comparison: None. Technique: Spiral high resolution axial images were obtained through the head, neck and superior mediastinum following bolus administration of intravenous contrast for CT angiography. The data was subsequently postprocessed utilizing multi-planar reconstructions, maximum intensity projections, and a tissue segmentation algorithm at a separate workstation under physician supervision. CT Contrast: Omnipaque 350CT Contrast Volume (ml): 100 CT Contrast Route of Administration: Intravenous CT Dose-Length Product (DLP): 3007 mGy*cmCT Dose Reduction Employed: Not specified RESULT: CT HEAD: CT examination of the head is normal. CT ARTERIOGRAM: Extracranial Circulation: Aortic Arch: There is a normal branching pattern from the aortic arch.. There is no significant stenosis in the proximal brachiocephalic vessels. Carotid Stenosis: Right Common: No significant stenosis.Right Internal Carotid Plaque: No significant plaque formation.Right Internal Carotid Stenosis (% by NASCET Criteria): 0 Left Common: No significant stenosis.Left Internal Carotid Plaque: No significant plaque formation.Left Internal Carotid Stenosis (% by NASCET Criteria): 0 Cervical Vertebral Arteries: Patency: Bilateral Dominance: Codominant Intracranial Circulation: Evaluation of the proximal intracranial circulation demonstrates vessels which are within normal limits of caliber and configuration. Specifically, there is no evidence of significant stenosis or intracranial aneurysm in the visualized vessels. Note is made of nonenhancing well-defined mass within the dorsolateral aspect of the right thyroid lobe. This has oblique transaxial dimensions of 8 x 14 mm with 12 mm CC dimension. No adjacent fat plane distortion. IMPRESSION: Normal cervical and intracranial CTA. Incidentally Detected Thyroid Nodule(s): Nodule(s) 1.0cm or larger in a patient with no known thyroid disease. Recommend dedicated thyroid Ultrasound follow-up.[employer] Thyroid Association 2009 Normal [facility] CTA HEAD WO/W IV CONon 06-18 CTA HEAD WO/W IV CON Performed at [facility] APPROVED BY: BEREKET RICHARDSON MD INTRACRANIAL AND CERVICAL CTA WITH IV CONTRAST History: Sudden onset bilateral facial tingling and left arm numbness. Evaluate for acute hemorrhage, infarct, or other underlying structural etiology. Comparison: None. Technique: Spiral high resolution axial images were obtained through the head, neck and superior mediastinum following bolus administration of intravenous contrast for CT angiography. The data was subsequently postprocessed utilizing multi-planar reconstructions, maximum intensity projections, and a tissue segmentation algorithm at a separate workstation under physician supervision. CT Contrast: Omnipaque 350CT Contrast Volume (ml): 100 CT Contrast Route of Administration: Intravenous CT Dose-Length Product (DLP): 3007 mGy*cmCT Dose Reduction Employed: Not specified RESULT: CT HEAD: CT examination of the head is normal. CT ARTERIOGRAM: Extracranial Circulation: Aortic Arch: There is a normal branching pattern from the aortic arch.. There is no significant stenosis in the proximal brachiocephalic vessels. Carotid Stenosis: Right Common: No significant stenosis.Right Internal Carotid Plaque: No significant plaque formation.Right Internal Carotid Stenosis (% by NASCET Criteria): 0 Left Common: No significant stenosis.Left Internal Carotid Plaque: No significant plaque formation.Left Internal Carotid Stenosis (% by NASCET Criteria): 0 Cervical Vertebral Arteries: Patency: Bilateral Dominance: Codominant Intracranial Circulation: Evaluation of the proximal intracranial circulation demonstrates vessels which are within normal limits of caliber and configuration. Specifically, there is no evidence of significant stenosis or intracranial aneurysm in the visualized vessels. Note is made of nonenhancing well-defined mass within the dorsolateral aspect of the right thyroid lobe. This has oblique transaxial dimensions of 8 x 14 mm with 12 mm CC dimension. No adjacent fat plane distortion. IMPRESSION: Normal cervical and intracranial CTA. Incidentally Detected Thyroid Nodule(s): Nodule(s) 1.0cm or larger in a patient with no known thyroid disease. Recommend dedicated thyroid Ultrasound follow-up.[employer] Thyroid Association 2009 Normal [facility] Glucose Meteron 06-18-2017 Glucose mass conc 68 mg/dL Low 70-99 [facility] Comment on above: Result Comment: MD Dumont [place] [address] Performed By: #### L GLMT ####[place] [address] HCG, Qual. Serumon 8 HCG, Qual. Serum Negative Normal Negative [facility] Comment on above: Performed By: #### L SHCG ####[place] [address] Hemogramon 06-18-2017 Erythrocyte distribution width Auto Ratio (RBC) 11.3 % Low 11.5-15.9 [facility] Comment on above: Performed By: #### L CBC ####[place] [address] Erythrocytes (RBC) 4.13 mil/cmm Low 4.20-5.40 [facility] Comment on above: Performed By: #### L CBC ####[place] [address] Hematocrit (HCT) 36.8 % Low 37.0-47.0 [facility] Comment on above: Performed By: #### L CBC ####[place] [address] Hemoglobin mass conc (Bld) 13.3 g/dL Normal 12.0-16.0 [facility] Comment on above: Performed By: #### L CBC ####[place] [address] MCH 32.2 pg High 27.0-31.0 [facility] Comment on above: Performed By: #### L CBC ####[facility] [place], [place] [address] MCHC mass conc (RBC) 36.1 % High 32.0-36.0 [facility] Comment on above: Performed By: #### L CBC ####[address] [address] MCV 89.1 fL Normal 81.0-99.0 [facility] Comment on above: Performed By: #### L CBC ####[place] [address] Platelet mean volume (PMV) 9.5 fL Normal 7.1-10.5 [facility] Comment on above: Performed By: #### L CBC ####[place] [address] Platelets 323 thou/cmm Normal 150-400 [facility] Comment on above: Performed By: #### L CBC ####[place] [address] WBC (Leukocytes) 8.6 thou/cmm Normal 4.8-10.8 [facility] Comment on above: Performed By: #### L CBC ####[place] [address] MDRD eGFRon 06-18-2017 eGFR (non-black) mL/min/{1.73_m2} Normal >60mL/m in/1 .73m2 [facility] Comment on above: Result Comment: If t he patient is , multiply the result by 1.210. Performed By: #### L GFR ####[place] [address] Protimeon 06-18-2017 INR Coag RelTime (PPP) 0.98 {INR} Normal [facility] Comment on above: Result Comment: Jules dard Therapy 2.0-3.0High Dose 2.5-3.5 Performed By: #### L PT ####[place] [address] Prothrombin time (PT) Coag time (PPP) 10.2 s Normal 9.7-13.0 [facility] Comment on above: Result Comment: Note new reference range. Performed By: #### L PT ####[facility] [place], [place] [address] TSHon 06-18-2017 Thyroid stimulating hormone (TSH) 0.78 uIU/mL Normal 0.34-4.82 [facility] Comment on above: Performed By: #### L TSH ####[facility] [place], [place] [address] Gram stain for investigation of transfusion reaction Microscopic observation Gram stain Nom (Unsp spec) [facility] Work Phone: Thin prep Papanicolaou smear with manual screening Genital Culture G. vaginalis (Presumptive) [facility] Work Phone: Vital Signs Date Time Vital Sign Value Performing Clinician Facility 02-03-2025 12:56-0400 Body height 157.5 cm [employer] [facility] Work Phone: [facility] 02-03-2025 12:56-0400 Body mass index (BMI) [Ratio] 21.03 kg/m2 [employer] PA[facility]C Work Phone: [facility] 02-03-2025 12:56-0400 Body weight 52.16 kg [employer] PA[employer]C Work Phone: [facility] 02-03-2025 12:56-0400 Respiratory rate 16 /min [employer] PA[facility]C Work Phone: [facility] 08-07-2023 11:30-0500 Body height 157.5 cm Parvin Yang METER MAINTENANCE PERSON.COMMERCIAL INTELLIGENCE MANAGER Work Phone: [facility] 08-07-2023 11:30-0500 Body temperature 98.49 [degF] Parvin Yang METER MAINTENANCE PERSON.COMMERCIAL INTELLIGENCE MANAGER Work Phone: [facility] 08-07-2023 11:30-0500 Body weight 53.45 kg Parvin Yang METER MAINTENANCE PERSON.COMMERCIAL INTELLIGENCE MANAGER Work Phone: [facility] 08-07-2023 11:30-0500 Diastolic blood pressure 86 mm[Hg] Parvin Yang METER MAINTENANCE PERSON.COMMERCIAL INTELLIGENCE MANAGER Work Phone: [facility] 08-07-2023 11:30-0500 Heart rate 100 /min Parvin Yang METER MAINTENANCE PERSON.COMMERCIAL INTELLIGENCE MANAGER Work Phone: [facility] 08-07-2023 11:30-0500 Respiratory rate 18 /min Parvin Yang METER MAINTENANCE PERSON.COMMERCIAL INTELLIGENCE MANAGER Work Phone: [facility] 08-07-2023 11:30-0500 SaO2% (BldA) [Mass fraction] 100 % Parvin Yang METER MAINTENANCE PERSON.COMMERCIAL INTELLIGENCE MANAGER Work Phone: [facility] 08-07-2023 11:30-0500 Systolic blood pressure 160 mm[Hg] Parvin Yang METER MAINTENANCE PERSON.COMMERCIAL INTELLIGENCE MANAGER Work Phone: [facility] 04-18-2023 10:35-0500 Body height 160.[address] Shira Sims Work Phone: [facility] 04-18-2023 10:29-0500 Body mass index (BMI) [Ratio] 21.7 kg/m2 Dr. Shira Sims Work Phone: [facility] 04-18-2023 10:29-0500 Body weight 55.[address] Shira Sims Work Phone: [facility] 04-18-2023 10:29-0500 Diastolic blood pressure 74 mm[Hg] Dr. Shira Sims Work Phone: [facility] 04-18-2023 10:29-0500 Systolic blood pressure 126 mm[Hg] Dr. Shira Sims Work Phone: [facility] 07-24-2022 07:44-0500 Body height 157.[address] 07-24-2022 07:44-0500 Body mass index (BMI) [Ratio] 22.86 kg/m2 [address] 07-24-2022 07:44-0500 Body weight 56.[address] 05-17-2022 15:14-0500 Body height 160.[address] Shira Sims Work Phone: [facility] Work Phone: 05-17-2022 15:10-0500 Body mass index (BMI) [Ratio] 23.4 kg/m2 Dr. Shira Sims Work Phone: [facility] Work Phone: 05-17-2022 15:10-0500 Body weight 60.[address] Shira Sims Work Phone: [facility] Work Phone: 05-17-2022 15:10-0500 Diastolic blood pressure 76 mm[Hg] Dr. Shira Sims Work Phone: [facility] Work Phone: 05-17-2022 15:10-0500 Systolic blood pressure 112 mm[Hg] Dr. Shira Sims Work Phone: [facility] Work Phone: 04-25-2022 11:26-0500 Body mass index (BMI) [Ratio] 24 kg/m2 Dr. Shira Sims Work Phone: [facility] Work Phone: 04-25-2022 11:26-0500 Body weight 61.[address] Shira Sims Work Phone: [facility] Work Phone: 04-25-2022 11:26-0500 Diastolic blood pressure 91 mm[Hg] Dr. Shira Sims Work Phone: [facility] Work Phone: 04-25-2022 11:26-0500 Systolic blood pressure 144 mm[Hg] Dr. Shira Sims Work Phone: [facility] Work Phone: 03-06-2022 10:12-0400 Body temperature 96.4 [degF] Dr. Shira Sims Work Phone: [facility] Work Phone: 03-06-2022 10:12-0400 Diastolic blood pressure 74 mm[Hg] Dr. Shira Sims Work Phone: [facility] Work Phone: 03-06-2022 10:12-0400 Heart rate 67 /min Dr. Shira Sims Work Phone: [facility] Work Phone: 03-06-2022 10:12-0400 Respiratory rate 16 /min Dr. Shira Sims Work Phone: [facility] Work Phone: 03-06-2022 10:12-0400 SaO2% (BldA) [Mass fraction] 100 % Dr. Shira Sims Work Phone: [facility] Work Phone: 03-06-2022 10:12-0400 Systolic blood pressure 116 mm[Hg] Dr. Shira Sims Work Phone: [facility] Work Phone: 03-06-2022 07:53-0400 Body height 160.[address] Shira Sims Work Phone: [facility] Work Phone: 03-06-2022 07:53-0400 Body mass index (BMI) [Ratio] 25 kg/m2 Dr. Sihra Sims Work Phone: [facility] Work Phone: 03-06-2022 07:53-0400 Body weight [address] Shira Sims Work Phone: [facility] Work Phone: 01-25-2022 11:03-0400 Body mass index (BMI) [Ratio] 23.8 kg/m2 Dr. Shira Sims Work Phone: [facility] Work Phone: 01-25-2022 11:03-0400 Body weight 60.[address] Shira Sims Work Phone: [facility] Work Phone: 01-25-2022 11:03-0400 Diastolic blood pressure 81 mm[Hg] Dr. Shira Sims Work Phone: [facility] Work Phone: 01-25-2022 11:03-0400 Systolic blood pressure 122 mm[Hg] Dr. Shira Sims Work Phone: [facility] Work Phone: Encounters Encounter Date Encounter Type Care Provider Facility Start: 04-19-2025 End: 04-19-2025 ambulatory [facility] Start: 03-16-2025 End: 03-16-2025 Emergency department patient visit SHIRA M [facility] Facility:[facility] Start: 02-26-2025 ambulatory [facility] Brad [facility] Facility :[facility] Start: 02-03-2025 End: 02-03-2025 Patient encounter procedure Jailene Luna PA-C Work Phone: [facility] Comment on above: Closed nondisplaced fracture of distal phalanx of right thumb, initial encounter (Primary Dx); Sprain of metacarpophalangeal (MCP) joint of right thumb, initial encounter Start: 02-03-2025 End: 02-03-2025 ambulatory Lisa Stanley OTR/L Work Phone: [facility] Comment on above: Pain of right thumb (Primary Dx); Closed nondisplaced fracture of distal phalanx of right thumb, initial encounter; Sprain of metacarpophalangeal (MCP) joint of right thumb, initial encounter Start: 02-01-2025 End: 02-01-2025 Emergency department patient visit SHIRAJohan SIMS Facility:[facility] Start: 10-05-2024 ambulatory SVETLANA Alfonso ity:[facility] Start: 10-05-2024 End: 10-05-2024 Subsequent hospital visit by physician [facility] Work Phone: [facility] Comment on above: Unspecified abdomina l pain [R10.9] Start: 09-30-2024 ambulatory SHIRA SIMS Facility :[facility] Start: 07-23-2024 End: 07-23-2024 Telephone encounter Shira Sims DO Work Phone: [facility] Comment on above: Test Scheduling Start: 05-14-2024 End: 08-13-2024 Transcribe Orders Shira Sims DO Work Phone: [facility] Central Scheduling Comment on above: Cardiac murmur, unsp ecified (Primary Dx) Start: 08-07-2023 End: 08-07-2023 Patient encounter procedure Parvin Trey METER MAINTENANCE PERSON.COMMERCIAL INTELLIGENCE MANAGER Work Phone: [facility] Comment on above: Acute sinusitis, rec urrence not specified, unspecified location (Primary Dx) Start: 04-26-2023 ambulatory [facility] Facility :[facility] Start: 04-18-2023 End: 04-18-[address] Shira Sims Work Phone: [facility], Specimen Work Phone: Start: 04-18-2023 End: 04-18-[address] Shira Sims Work Phone: [facility] Work Phone: Start: 04-18-2023 End: 04-18-[address] Shira Sims Work Phone: [facility] Work Phone: Start: 11-22-2022 ambulatory [facility] Facility [facility] Start: 07-24-2022 End: 07-24-2022 Subsequent hospital visit by physician [facility] Exam Room 1 [facility] Comment on above: Unspecified lump in the left breast, upper outer quadrant Start: 05-17-2022 End: 05-17-[address] Shira Sims Work Phone: [facility] Start: 05-17-2022 End: 05-17-[address] Shira Sims Work Phone: [facility] Start: 05-17-2022 End: 05-17-[address] Shira Sims Work Phone: [facility] Work Phone: Start: 04-25-2022 End: 04-25-2022 ambulatory Shira Sims Facility:[facility] Start: 04-25-2022 End: 04-25-[address] Shira Sims Work Phone: [facility] Start: 03-06-2022 Non-patient / Non-visit Dr. Lucille Sims Work Phone: [facility] Start: 03-06-2022 End: 03-06-2022 Admission to same day surgery center Dr[facility] Start: 03-06-2022 End: 03-06-[address] Shira Sims Work Phone: [facility] Work Phone: Start: 03-05-2022 Non-patient / Non-visit Dr. Lucille Sims Work Phone: [facility] Start: 01-25-2022 End: 01-25-[address] Shira Sims Work Phone: [facility] Start: 07-01-[address] [facility] Procedures Date Procedure Procedure Detail Performing Clinician Start: 10-05-2024 Ct abdomen & pelvis w/contrast material Svetlana Gage MD Work Phone: Start: 04-18-2023 Cytopathology procedure, preparation of smear, genital source Dr. Shira Sims Work Phone: Start: 04-18-2023 Investigation of transfusion reaction Dr. Shira Sims Work Phone: Start: 07-24-2022 Us breast uni real time with image limited Shira Sims DO Work Phone: Start: 07-24-2022 Diagnostic mammography computer-aided detcj bi Shira Sims DO Work Phone: Start: 03-06-[address] Shira Sims Work Phone: Start: 02-08-2022 H/O: surgery Status post bilateral salpingectomy Dr. Shira Sims Work Phone: Cytopathology proced ure, preparation of smear, genital source Dr. Shira Sims Work Phone: H/O: surgery Status post bila teral salpingectomy Dr. hSira Sims Work Phone: Investigation of transfusion reaction Dr. Shira Sims Work Phone: Plan of Treatment Date Care Activity Detail Author Start: 2063 RSV Immunization for Adults (1 - 1-dose 75+ series) RSV Immunization for Adults (1 - 1-dose 75+ series) [facility] Start: 2038 Zoster Vaccines (1 of 2) Zoster Vacc pernell (1 of 2) [facility] Start: 10-22-2029 DTaP/Tdap/Td Vaccine s (4 - Td or Tdap) DTaP/Tdap/Td Vaccines (4 - Td or Tdap) [facility] Start: 10-22-2029 Urine microalbumin profile DTaP,Tdap,Td Vaccine (4 - Td or Tdap) [facility] Start: 02-08-2025 Influenza vaccination Influenza Vacc ine (#1) [facility] Start: 05-14-2024 End: 05-14-2026 US Heart Transthoracic Transthoracic echocardiogram (TTE) complete with contrast, bubble, strain, and 3D PRN CV Echocardiography Routine Cardiac murmur, unspecified Expected: 05/14/2024 (Approximate), Expires: 05/14/2026 [facility] [employer] [facility] Work Phone: Comment on above: Expected: 05/14/2024 (Approximate), Expires: 05/14/2026 Start: 02-09-2024 COVID-19 Vaccine ( season) COVID-19 Vaccine ( season) [facility] Start: 02-09-2024 Influenza vaccination Influenza Vacc ine (#1) [facility] Start: 06-10-2023 Depression Assessment Depression Ass essment [facility] Start: 02-08-2023 Influenza vaccination Influenza Vacc ine (#1) [facility] Start: 03-06-2022 Anesthesia intraperitoneal lower abd w/laps nos ANESTH SURG LOWER ABDOMEN [facility] Work Phone: Start: 03-06-2022 Insertion intrauteri ne device iud INSERT INTRAUTERINE DEVICE [facility] Work Phone: Start: 03-06-2022 Laparoscopy w/rmvl adnexal structures LAPAROSCOPY REMOVE ADNEXA [facility] Work Phone: Start: 03-06-2022 Ambulation without limitation [facility] Work Phone: Start: 03-06-2022 Medical regimen orde rs management [facility] Work Phone: Start: 03-06-2022 Medication education [facility] Work Phone: Start: 03-06-2022 Procedure discontinued [facility] Work Phone: Start: 03-06-2022 Taking patient vital signs [facility] Work Phone: Start: 03-06-2022 Vital signs measurements [facility] Work Phone: Start: 03-06-2022 [facility] Work Phone: Start: 03-06-2022 Admission procedure [facility] Work Phone: Start: 03-06-2022 Patient discharge [facility] Work Phone: Start: 02-08-2022 Influenza vaccination Influenza Vacc ine (#1) [facility] Start: 08-21-2020 Screening for malign ant neoplasm of cervix Pap Testing [facility] Start: 08-21-2018 Screening for malign ant neoplasm of cervix Cervical Cancer Screening [facility] Start: 2018 Screening for malign ant neoplasm of cervix [facility] Start: 08-11-2015 Varicella vaccination [facility] Start: 2015 HPV Vaccine (1 - 3-d ose SCDM series) HPV Vaccine (1 - 3-dose SCDM series) [facility] Start: 2009 Screening for malign ant neoplasm of cervix Pap Smear [facility] Start: 2007 Hepatitis B Vaccine (1 of 3 - 19+ 3-dose series) Hepatitis B Vaccine (1 of 3 - 19+ 3-dose series) [facility] Start: 2007 Hepatitis B Vaccines (1 of 3 - 19+ 3-dose series) Hepatitis B Vaccines (1 of 3 - 19+ 3-dose series) [facility] Start: 2006 Anxiety Screening Anxiety Screening [facility] Start: 2006 Depression Screening Depression Scre ening [facility] Start: 2006 Hepatitis C screening Hepatitis C Sc reening [facility] Start: 2000 Depression Screening Depression Scre ening [facility] Start: 1988 Covid-19 Vaccine (#1) Covid-19 Vacci ne (#1) [facility] Start: 1988 Hepatitis B Vaccine (1 of 3 - 3-dose series) Hepatitis B Vaccine (1 of 3 - 3-dose series) [facility] Start: 1988 Hepatitis B Vaccines (1 of 3 - 3-dose series) Hepatitis B Vaccines (1 of 3 - 3-dose series) [facility] Start: 1988 HIV screening HIV Screening [facility] zana Patient referral [facility] Work Phone: [facility]vis [facility] Immunizations Immunization Date Immunization Notes Care Provider Fa gloria 10-23-2019 tetanus toxoid, redu adelso diphtheria toxoid, and acellular pertussis vaccine, adsorbed Parvin Brown METER MAINTENANCE PERSON.COMMERCIAL INTELLIGENCE MANAGER Work Phone: [facility] 07-14-2015 measles, mumps and rubella virus vaccine Parvin Yang METER MAINTENANCE PERSON.COMMERCIAL INTELLIGENCE MANAGER Work Phone: [facility] 05-25-2015 tetanus toxoid, redu adelso diphtheria toxoid, and acellular pertussis vaccine, adsorbed Parvin Brown METER MAINTENANCE PERSON.COMMERCIAL INTELLIGENCE MANAGER Work Phone: [facility] 03-31-2015 influenza, seasonal, injectable Parvin Yang METER MAINTENANCE PERSON.COMMERCIAL INTELLIGENCE MANAGER Work Phone: [facility] 03-31-2015 influenza virus vacc ine, unspecified formulation [facility] 1 [facility] 07-29-2013 measles, mumps and rubella virus vaccine Parvin Yang METER MAINTENANCE PERSON.COMMERCIAL INTELLIGENCE MANAGER Work Phone: [facility] 07-29-2013 tetanus toxoid, redu adelso diphtheria toxoid, and acellular pertussis vaccine, adsorbed Parvin Yang METER MAINTENANCE PERSON.COMMERCIAL INTELLIGENCE MANAGER Work Phone: [facility] 04-22-2013 influenza virus vacc ine, unspecified formulation Parvin Yang METER MAINTENANCE PERSON.COMMERCIAL INTELLIGENCE MANAGER Work Phone: [facility] Payers Date Payer Category Payer Self-pay [id number] 2019 Private Health Insurance MMO SUP ER[employer] PPO [id number] 2019 Unknown [id number] 2017 Commercial Managed C are - HMO MMO SUPER[employer] [id number] 2017 Unknown 1988 Unknown [id number] 1988 Unknown [id number] Unknown [id number] Unknown [id number] Unknown [id number] Unknown [id number] Unknown [id number] Unknown [id number] Unknown [id number] Social History Date Type Detail Facility Start: 01-25-2022 End: 04-18-2023 Tobacco smoking status MOIS Unknown if ever smoked [facility] Start: 1990 Sex Assigned At Female [facility] Start: 08-18-2022 Tobacco smoking status MOIS Never smoked tobacco [facility] Start: 08-18-2022 Tobacco use and exposure Smokeless tobacco non-user [facility] Start: 08-07-2023 End: 02-03-2025 Alcohol intake Current non-drinker of alcohol (finding) [facility] Start: 08-07-2023 End: 06-08-2024 History of Social function [facility] Start: 08-07-2023 End: 06-08-2024 Tobacco use panel [facility] Start: 05-11-2012 National Score (1-100), lower number is lower risk 51 [facility] Start: 12-15-2021 Gender identity Identifies as female gender (finding) [facility] Start: 07-24-2022 Alcohol intake Not Asked [facility] Start: 1990 Sex Assigned At Not on file [facility] Start: 07-14-2022 End: 07-24-2022 Exposure to SARS-CoV-2 (event) Not sure [facility] Start: 01-08-2022 Sex Female (finding) [facility] NEGATED: Highlighted row [facility] Work Phone: Goals Date Patient Goal Desired Activity /State Functional Status Date Assessment Result Facility 07-15-2015 Are you deaf, or do you have serious difficulty hearing No 07/15/2015 3:36 PM Vera Cid RN No [facility] 07-15-2015 Are you blind, or do you have serious difficulty seeing, even when wearing glasses No 07/15/2015 3:36 PM Vera Cid, LORENA No [facility] 07-15-2015 Do you have serious difficulty walking or climbing stairs No 07/15/2015 3:36 PM Vera Cid RN No [facility] 07-15-2015 Do you have difficul ty dressing or bathing No 07/15/2015 3:36 PM Vera Cid, LORENA No [facility] 07-15-2015 Because of a physica l, mental, or emotional condition, do you have difficulty doing errands alone such as visiting a physician's office or shopping No 07/15/2015 3:36 PM Vera Cid RN No [facility] Mental Status Date Assessment Result Facility 03-06-2022 Cognitive function Voice/Name [facility] Work Phone: 07-15-2015 Because of a physica l, mental, or emotional condition, do you have serious difficulty concentrating, remembering, or making decisions No 07/15/2015 3:36 PM Vera Cid RN No [facility] Clinical Notes 10-21-2014 to 02-26-2025 Lisa Stanley, OTR/Angel - 02/03/2025 2:24 PM Jailene Martínez PA-C - 02/03/2025 1:32 PM Riley Montero Tech - 02/03/2025 12:54 PM Nika Cueva RT(R) - 10/05/2024 7:00 AM EDT Note Date & Type Note Facility 02-26-2025 Note HNO ID: [id number] Author: GEMA NEELY CT Service: Radiology Author Type: Technologist Type: Progress Notes Filed: 02/26/2025 09:25 Note Text: Radiology Service Progress Note PATIENT NAME: Stephany ROMERO DATE OF SERVICE: February 26, 2025 TIME: 9:25 AM PATIENT IDENTITY VERIFICATION COMPLETED USING TWO (2) IDENTIFIERS: Name and Date of confirmed by patient verbally. FALL SCREENING: Has the patient had 2 falls in the last year or 1 fall with injury or currently using an Ambulatory Assistive Device (Walker, Cane, Wheelchair, Crutches, etc.)? No PATIENT GENDER DATA: Assigned female at . status: : No status: NO. PATIENT RELEVANT IMPLANT DATA REVIEWED: Not Applicable PATIENT PRESENTS WITH AN IMPLANTABLE OR ATTACHED HURL SHAKER: No RADIOLOGY DEPARTMENT: General X-ray: Exam(s) Completed: Chest X-Ray PERIPHERAL IV DATA: Not applicable SIGNED BY: TYSON Donaldson February 26, 2025 9:25 AM [facility] 02-03-2025 Note HNO ID: [id number] Author: LISA STANLEY OTR/Angel Service: ? Author Type: Occupational Therapist Type: Progress Notes Filed: 02/04/2025 21:02 Note Text: Episode Visit Count: 1 Therapist That Will Accept/Oversee The Plan Of Care: Leticia Stanley Start of Care Date: 02/03/25 Onset Date: 01/31/25 Patient Identified by Name and Date of : Yes [facility] THER[facility] OCCUPATIONAL THERAPY EVALUATION PLAN OF CARE: Assessment: Stephany ROMERO presents with diagnosis of Closed nondisplaced fracture of distal phalanx of right thumb, Sprain of metacarpophalangeal (MCP) joint of right thumb that interferes with gripping, pinching, twisting . The patient presents with impairments in overall function and symptom management. PROMIS? (Patient-Reported Outcomes Measurement Information System) scores were reviewed and identified as within normal limits. Prognosis for therapy is Excellent due to: current objective clinical presentation, good overall health status, acuteness of condition . The patient will benefit from skilled therapy services to meet the goals established for this plan of care as noted below. Goals for Episode of Care: established 02/03/25 Patient will report a good understanding of diagnosis and OT recommendations for progression of program. Patient will improve function in Right thumb in order to be able to perform prior functional tasks. Patient will report a decrease in pain in Right thumb to 1/10 with prior functional tasks. Patient will increase AROM of Right thumb to be WNL in order to be able to improve function for prior functional tasks. Patient will independently demonstrate correct application of CUSTOM orthosis and verbalize understanding of proper wear/care. Patient Goals: to be able to go back to work Time Frame for Goals and Treatment : 04/04/25 Planned Interventions, Frequency, and Duration: Current Frequency: 1x every other week Duration: 8 weeks Total Number of Visits Planned: 4 Planned Treatment Interventions: Custom orthosis fabrication, Therapeutic exercise (11745), Self-skilled nursing management (28912), Therapeutic activities (78384), Patient/Family/Caregiver Education PLAN FOR NEXT VISIT:Patient to contact OT for orthosis modifications as needed. Initiate ROM per ortho. Patient demonstrates good understanding of plan of care and treatment. The above goals and plan of care were discussed and agreed upon by patient/family. SUBJECTIVE: Custom orthosis for R thumb. Crush injury x 3 days ago. To ED same day. Followed up with orthopedics, referred to OT Patient would like to have her thumb protected so that she can return to work. 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 5 points is clinically meaningfully difference Percentiles provide an indication of how the patient's score ranks in relation to the general population. Higher percentile rankings indicate better function/quality of life. 50th percentile is the average of the general population and indicates half of respondents had a worse score. OBJECTIVE MEASURES WITH LEVEL OF FUNCTION: Hand Skin / Wound: Skin Description, Wound Description Wound Description: Progressing as expected, Macerated (abrasion dorsal aspect L thumb) Edema Location: R thumb Edema Description: Mild Right Hand AROM: WFL Thumb AROM: Testing not indicated Strength: (Testing not indicated) Sensation: Reports tingling or numbness Clinical Presentation: (+ tender ulnar aspect of MP joint) UE AROM Right Hand AROM: WFL Thumb AROM: Testing not indicated Education: Education Learning Preferences: Explanation, Demonstration Barriers: None Learning/educational needs: Plan of Care, Safety, Brace Fit Education Provided: Yes, see treatment interventions for education provided Education Provided To: Patient Education Mode/Type: Demonstration, Explanation/Discussion Respo (more content not included)... [facility] 02-03-2025 History of Present illness Narrative Episode Visit Count: 1 Therapist That Will Accept/Oversee The Plan Of Care: Letiica Stanley Start of Care Date: 02/03/25 Onset Date: 01/31/25 Patient Identified by Name and Date of : Yes [facility]ORTS THERAPY OCCUPATIONAL THERAPY EVALUATION PLAN OF CARE: Assessment: Stephany ROMERO presents with diagnosis of Closed nondisplaced fracture of distal phalanx of right thumb, Sprain of metacarpophalangeal (MCP) joint of right thumb that interferes with gripping, pinching, twisting . The patient presents with impairments in overall function and symptom management. PROMIS (Patient-Reported Outcomes Measurement Information System) scores were reviewed and identified as within normal limits. Prognosis for therapy is Excellent due to: current objective clinical presentation, good overall health status, acuteness of condition . The patient will benefit from skilled therapy services to meet the goals established for this plan of care as noted below. Goals for Episode of Care: established 02/03/25 Patient will report a good understanding of diagnosis and OT recommendations for progression of program. Patient will improve function in Right thumb in order to be able to perform prior functional tasks. Patient will report a decrease in pain in Right thumb to 1/10 with prior functional tasks. Patient will increase AROM of Right thumb to be WNL in order to be able to improve function for prior functional tasks. Patient will independently demonstrate correct application of CUSTOM orthosis and verbalize understanding of proper wear/care. Patient Goals: to be able to go back to work Time Frame for Goals and Treatment : 04/04/25 Planned Interventions, Frequency, and Duration: Current Frequency: 1x every other week Duration: 8 weeks Total Number of Visits Planned: 4 Planned Treatment Interventions: Custom orthosis fabrication, Therapeutic exercise (30961), Self-skilled nursing management (08351), Therapeutic activities (08553), Patient/Family/Caregiver Education PLAN FOR NEXT VISIT:Patient to contact OT for orthosis modifications as needed. Initiate ROM per ortho. Patient demonstrates good understanding of plan of care and treatment. The above goals and plan of care were discussed and agreed upon by patient/family. SUBJECTIVE: Custom orthosis for R thumb. Crush injury x 3 days ago. To ED same day. Followed up with orthopedics, referred to OT Patient would like to have her thumb protected so that she can return to work. 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 5 points is clinically meaningfully difference Percentiles provide an indication of how the patient's score ranks in relation to the general population. Higher percentile rankings indicate better function/quality of life. 50th percentile is the average of the general population and indicates half of respondents had a worse score. OBJECTIVE MEASURES WITH LEVEL OF FUNCTION: Hand Skin / Wound: Skin Description, Wound Description Wound Description: Progressing as expected, Macerated (abrasion dorsal aspect L thumb) Edema Location: R thumb Edema Description: Mild Right Hand AROM: WFL Thumb AROM: Testing not indicated Strength: (Testing not indicated) Sensation: Reports tingling or numbness Clinical Presentation: (+ tender ulnar aspect of MP joint) UE AROM Right Hand AROM: WFL Thumb AROM: Testing not indicated Education: Education Learning Preferences: Explanation, Demonstration Barriers: None Learning/educational needs: Plan of Care, Safety, Brace Fit Education Provided: Yes, see treatment interventions for education provided Education Provided To: Patient Education Mode/Type: Demonstration, Explanation/Discussion Response to Education/Teach Back: States/Identifies, Return Demonstration TREATMENT: OT Treatment Interventions : Custom Orthosis/Splint Fabrication, Self-Usp Management Evaluation Self-Usp Management: 1: Skilled instruction provided re: diagnosis, plan of care and role of OT. Recommended removing orthosis when at home and not active , to reduce skin maceration 2: Skilled instruction provided re: edema management / icing. Skilled Intervention: Reviewed patient specific diagnosis in relation to activities of daily living/home management. Custom orthosis: L 3913 HFO w/out joints (short opponens, all CMC designs, C-bar, hand balderas, hand gutter, hand trigger, anti-claw) Custom orthosis to provide immobilization, protection and support of right thumb to promote healing and Pt practiced orthosis application, donning on/off while under OT's supervision.. Patient was instructed in care of orthosis and wearing schedule working manager except bathing.. Skilled Intervention: Clinical knowledge and skills required for custom orthotic fabrication and wearing schedule Patient/caregiver was educated in correct method for donning/doffing orthosis as well as wear and care of orthosis. Patient/Family/Caregiver Education: Precautions, purpose and use of orthosis Discussed management of any symptoms related to wearing the orthosis Billing * Evaluation Low Complexity: 1 Unit Self-Care/Home Management Treatment Minutes: 5 * L 3913 HFO w/out joints (short opponens, all CMC designs, C-bar, hand balderas, hand gutter, hand trigger, anti-claw) Quantity: 1 Fabrication time for custom splint (minutes): 12 Skilled Treatment Time Minutes (timed and untimed codes): 35 Total Session Time (minutes): 35 Session Start Time : 1405 Session Stop Time : 1440 TROI Gannon, CHT documented in this encounter [facility] 02-03-2025 Note HNO ID: [id number] Author: JAILENE LUNA PA-C Service: ? Author Type: Physician Teletype Installer Type: Progress Notes Filed: 02/03/2025 13:59 Note Text: ORTHOPAEDIC OFFICE NOTE CHIEF COMPLAINT: New and Fracture of the Right Thumb HISTORY OF PRESENT ILLNESS Stephany ROMERO is a 34 year old female right hand dominant who presents for evaluation of right thumb injury. Patient states she was throwing a trampoline away when her right thumb got crushed between a metal piece on the trampoline. She was seen at the ED and found to have a distal phalanx fracture. She was placed in a thumb spica splint and sent home on 3 days of Keflex. 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 PAIN EVALUATION 02/03/2025 1254 Pain Level: 6 Pain Location: Finger Description: Throbbing Duration Amount of Time: 2 Duration Units: Days Frequency: Continuous Intervention/Comfort measure: Medication PAST MEDICAL HISTORY Past medical, surgical, family, and social histories have been reviewed and updated with the patient today and are located elsewhere in the medical record. Diabetes:No ALLERGIES ALLERGIES No Known Allergies PHYSICAL EXAMINATION Resp 16 Ht 157.5 cm (5' 2") Wt 52.2 kg (115 lb) LMP 09/10/2020 BMI 21.03 kg/m? Body mass index is 21.03 kg/m?. General Appearance: Well appearing, alert, in no acute distress, well-hydrated, well nourished. Psyche: she is alert and oriented and cooperative to our examination. Neuro: she alert and oriented times: 3. Normal affect times: 3. Gait and station: normal. Pulmonary: she has non labored breathing. There is no evidence of cyanosis. There is no clubbing of fingernails. she has no pursed lips. Head: Normocephalic and atraumatic Neck: Supple with no JVD Lymph: There is no palpable epitrochlear Musculoskeletal- Right Hand/Wrist/Upper Extremity Exam: Skin: There is + swelling and ecchymosis noted to distal phalanx of right thumb. There is skin maceration and an abrasion noted to the dorsal aspect of right thumb, just proximal to proximal nail border. Right thumb nail appears intact. No subungual hematoma. No erythema, cellulitis/streaking, active bleeding or purulent drainage noted. There are no skin lacerations. Cardiovascular: <3 sec capillary refill, +2 radial pulse palpated. Tenderness to palpation: over right thumb distal phalanx and DIP joints. TTP noted to ulnar aspect of right thumb MP joint. ROM: Patient actively fires EPL and FPL tendons of right thumb. +Pain but no laxity with UCL stress testing of right thumb MP joint. No pain or laxity with RCL stress testing of right thumb MP joint. Instability: none Sensation: Normal sensation except the distal aspect of right thumb distal phalanx is decreased REVIEW OF STUDIES DATE OF EXAM: Feb 01 2025 8:33AM LDX 5319 - XR DIGIT 3V FRONTAL/LAT/OBL RT / PROCEDURE REASON: Hand trauma, no prior imaging * * * * Physician Interpretation * * * * LEFT THUMB PA, OBLIQUE AND LATERAL: CLINICAL INDICATION: Recent left thumb injury with left thumb pain and swelling. COMPARISON: No relevant prior available. Acute comminuted nondisplaced fracture involving the tuft of the distal thumb phalanx. No other evidence of acute fracture or dislocation. Soft tissue swelling distal thumb. No retained metallic foreign body. IMPRESSION IMPRESSION: Acute comminuted tuft fracture thumb distal phalanx. Correlate with physical exam findings to exclude open fracture. Auger Machine Offbearer: LOWELL Transcribe Date/Time: Feb 01 2025 8:38A Dictated by : LUIS ANGEL ROGERS MD This examination was interpreted and the report reviewed and electronically signed by: LUIS ANGEL ROGERS MD on Feb 01 2025 8:41AM EST ASSESSMENT AND PLAN 1. Closed nondisplaced fracture of distal phalanx of right thumb, initial encounter - ICD9: 816.02, ICD10: S62.524A (primary diagnosis) - CONSULT TO ORACLE BRM DEVELOPER 2. Sprain of metacarpophalangeal (MCP) joint of right thumb, initial encounter - ICD9: 842.12, ICD10: S63.641A - CONSULT TO ORACLE BRM DEVELOPER Patient educated on clinical and exam findings, radiographic findings, suspected diagnosis, and treatment options. -OT order placed today for patient to obtain thumb spica custom orthosis for right thumb distal phalanx fracture and possible ulnar-sided avulsion fracture and sprain of right thumb MP joint. -Patient to wear splint at all times except for hygiene purposes. -Discussed appropriate wound care with warm running soapy water. -When resting, patient is to come out of splint and expose thumb to air in order to d (more content not included)... [facility] 02-03-2025 History of Present illness Narrative Images from the original note were not included. ORTHOPAEDIC OFFICE NOTE CHIEF COMPLAINT: New and Fracture of the Right Thumb HISTORY OF PRESENT ILLNESS Stephany ROMERO is a 34 year old female right hand dominant who presents for evaluation of right thumb injury. Patient states she was throwing a trampoline away when her right thumb got crushed between a metal piece on the trampoline. She was seen at the ED and found to have a distal phalanx fracture. She was placed in a thumb spica splint and sent home on 3 days of Keflex. 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 PAIN EVALUATION 02/03/2025 1254 Pain Level: 6 Pain Location: Finger Description: Throbbing Duration Amount of Time: 2 Duration Units: Days Frequency: Continuous Intervention/Comfort measure: Medication PAST MEDICAL HISTORY Past medical, surgical, family, and social histories have been reviewed and updated with the patient today and are located elsewhere in the medical record. Diabetes:No ALLERGIES ALLERGIES No Known Allergies PHYSICAL EXAMINATION Resp 16 Ht 157.5 cm (5' 2") Wt 52.2 kg (115 lb) LMP 09/10/2020 BMI 21.03 kg/m Body mass index is 21.03 kg/m . General Appearance: Well appearing, alert, in no acute distress, well-hydrated, well nourished. Psyche: she is alert and oriented and cooperative to our examination. Neuro: she alert and oriented times: 3. Normal affect times: 3. Gait and station: normal. Pulmonary: she has non labored breathing. There is no evidence of cyanosis. There is no clubbing of fingernails. she has no pursed lips. Head: Normocephalic and atraumatic Neck: Supple with no JVD Lymph: There is no palpable epitrochlear Musculoskeletal- Right Hand/Wrist/Upper Extremity Exam: Skin: There is + swelling and ecchymosis noted to distal phalanx of right thumb. There is skin maceration and an abrasion noted to the dorsal aspect of right thumb, just proximal to proximal nail border. Right thumb nail appears intact. No subungual hematoma. No erythema, cellulitis/streaking, active bleeding or purulent drainage noted. There are no skin lacerations. Cardiovascular: <3 sec capillary refill, +2 radial pulse palpated. Tenderness to palpation: over right thumb distal phalanx and DIP joints. TTP noted to ulnar aspect of right thumb MP joint. ROM: Patient actively fires EPL and FPL tendons of right thumb. +Pain but no laxity with UCL stress testing of right thumb MP joint. No pain or laxity with RCL stress testing of right thumb MP joint. Instability: none Sensation: Normal sensation except the distal aspect of right thumb distal phalanx is decreased REVIEW OF STUDIES DATE OF EXAM: Feb 01 2025 8:33AM LDX 5319 - XR DIGIT 3V FRONTAL/LAT/OBL RT / PROCEDURE REASON: Hand trauma, no prior imaging * * * * Physician Interpretation * * * * LEFT THUMB PA, OBLIQUE AND LATERAL: CLINICAL INDICATION: Recent left thumb injury with left thumb pain and swelling. COMPARISON: No relevant prior available. Acute comminuted nondisplaced fracture involving the tuft of the distal thumb phalanx. No other evidence of acute fracture or dislocation. Soft tissue swelling distal thumb. No retained metallic foreign body. IMPRESSION IMPRESSION: Acute comminuted tuft fracture thumb distal phalanx. Correlate with physical exam findings to exclude open fracture. Auger Machine Offbearer: LOWELL Transcribe Date/Time: Feb 01 2025 8:38A Dictated by : LUIS ANGEL ROGERS MD This examination was interpreted and the report reviewed and electronically signed by: LUIS ANGEL ROGERS MD on Feb 01 2025 8:41AM EST ASSESSMENT AND PLAN 1. Closed nondisplaced fracture of distal phalanx of right thumb, initial encounter - ICD9: 816.02, ICD10: S62.524A (primary diagnosis) - CONSULT TO [employer]ACLE BRM DEVELOPER 2. Sprain of metacarpophalangeal (MCP) joint of right thumb, initial encounter - ICD9: 842.12, ICD10: S63.641A - CONSULT TO ORACLE BRM DEVELOPER Patient educated on clinical and exam findings, radiographic findings, suspected diagnosis, and treatment options. -OT order placed today for patient to obtain thumb spica custom orthosis for right thumb distal phalanx fracture and possible ulnar-sided avulsion fracture and sprain of right thumb MP joint. -Patient to wear splint at all times except for hygiene purposes. -Discussed appropriate wound care with warm running soapy water. -When resting, patient is to come out of splint and expose thumb to air in order to dry out and scab over. -Work note provided with restrictions. - Finish out current antibiotics -Ice/elevate as needed -NSAIDs/Tylenol as needed Follow up in 4 weeks - Patient instructed to call office with questions or concerns. This note was generated via [employer] voice dictation and may contain errors related to that system such as spelling, grammar, punctuation, gender, words, and phrases that may be inappropriate. All reasonable efforts were made to correct dictation errors, however, they still may occur given the software used. STEPHANIE Spears PA-C [facility] General Orthopaedics REVIEW OF SYSTEMS: GENERAL: Well developed, well nourished. No acute distress PAIN: right thumb pain CARDIOVASCULAR: Negative for chest pain, leg swelling and palpations. MSK: Positive for joint swelling SKIN: Negative for lesions, rash, itching, metal sensitivity NEURO: Negative for seizure, trauma, numbness/tingling of extremities. ENDOCRINE: Negative for diabetic associated symptoms HEMATOLOGY: Negative for excessive bleeding, clots, bleeding disorders. documented in this encounter [facility] 02-03-2025 Note HNO ID: [id number] Author: RILEY MANLEY Tech Service: ? Author Type: Infrastructure Solutions Architect Type: Progress Notes Filed: 02/03/2025 13:59 Note Text: REVIEW OF SYSTEMS: GENERAL: Well developed, well nourished. No acute distress PAIN: right thumb pain CARDIOVASCULAR: Negative for chest pain, leg swelling and palpations. MSK: Positive for joint swelling SKIN: Negative for lesions, rash, itching, metal sensitivity NEURO: Negative for seizure, trauma, numbness/tingling of extremities. ENDOCRINE: Negative for diabetic associated symptoms HEMATOLOGY: Negative for excessive bleeding, clots, bleeding disorders. [facility] 10-05-2024 History of Present illness Narrative Radiology Service Progress Note DATE OF SERVICE: October 05, 2024 TIME: 8:26 AM PATIENT IDENTITY VERIFICATION COMPLETED USING TWO (2) STANDARD IDENTIFIERS: Name and Date of confirmed by patient verbally. FALL SCREENING: Has the patient had 2 falls in the last year or 1 fall with injury or currently using an Ambulatory Assistive Device (Walker, Cane, Wheelchair, Crutches, etc.)? No PATIENT GENDER DATA: Assigned female at . status: : No status: NO. PATIENT RELEVANT IMPLANT DATA REVIEWED: Yes PATIENT PRESENTS WITH AN IMPLANTABLE OR ATTACHED HURL SHAKER: No ALLERGIES: Reviewed and unchanged CONTRAST ALLERGY: NO. EXAM: CT -CONTRAST INDUCED NEPHROPATHY RISK FACTORS: Not applicable CREATININE: Creatinine Date Value Ref Range Status 06/18/2017 0.59 0.51 - 0.95 mg/dL Final 03/26/2014 0.62 0.51 - 0.95 mg/dL Final 07/25/2013 0.69 (L) 0.70 - 1.40 mg/dL Final eGFR-All Other Races Date Value Ref Range Status 07/25/2013 >60 . Final P.O.C.T. RESULTS: POC done: Yes, See Lab Tab October 05, 2024 TREATMENT: N/A PERIPHERAL IV DATA: Ambulatory: A peripheral IV was started in the Right antecubital site with a Angio cath: 22 gauge. RADIOLOGY DEPARTMENT: CT; Exam(s) Completed: Abdomen/Pelvis SIGNATURE: RT Davin(Luna) PATIENT NAME: Stephany ROMERO DATE: October 05, 2024 TIME: 8:26 AM documented in this encounter [facility] 10-05-2024 Note HNO ID: [id number] Author: NIKA FRIEND RT (R) Service: Radiology Author Type: Infrastructure Solutions Architect Type: Progress Notes Filed: 10/05/2024 08:27 Note Text: Radiology Service Progress Note DATE OF SERVICE: October 05, 2024 TIME: 8:26 AM PATIENT IDENTITY VERIFICATION COMPLETED USING TWO (2) STANDARD IDENTIFIERS: Name and Date of confirmed by patient verbally. FALL SCREENING: Has the patient had 2 falls in the last year or 1 fall with injury or currently using an Ambulatory Assistive Device (Walker, Cane, Wheelchair, Crutches, etc.)? No PATIENT GENDER DATA: Assigned female at . status: : No status: NO. PATIENT RELEVANT IMPLANT DATA REVIEWED: Yes PATIENT PRESENTS WITH AN IMPLANTABLE OR ATTACHED HURL SHAKER: No ALLERGIES: Reviewed and unchanged CONTRAST ALLERGY: NO. EXAM: CT -CONTRAST INDUCED NEPHROPATHY RISK FACTORS: Not applicable CREATININE: Creatinine Date Value Ref Range Status 06/18/2017 0.59 0.51 - 0.95 mg/dL Final 03/26/2014 0.62 0.51 - 0.95 mg/dL Final 07/25/2013 0.69 (L) 0.70 - 1.40 mg/dL Final eGFR-All Other Races Date Value Ref Range Status 07/25/2013 >60 . Final P.O.C.T. RESULTS: POC done: Yes, See Lab Tab October 05, 2024 TREATMENT: N/A PERIPHERAL IV DATA: Ambulatory: A peripheral IV was started in the Right antecubital site with a Angio cath: 22 gauge. RADIOLOGY DEPARTMENT: CT; Exam(s) Completed: Abdomen/Pelvis SIGNATURE: RASHI Jin) PATIENT NAME: Stephany ROMERO DATE: October 05, 2024 TIME: 8:26 AM [facility] 09-30-2024 Note HNO ID: [id number] Author: XIOMARA WANG TECHNOLOGIST Service: ? Author Type: Technologist Type: Progress Notes Filed: 09/30/2024 09:37 Note Text: Radiology Service Progress Note PATIENT NAME: Stephany ROMERO DATE OF SERVICE: September 30, 2024 TIME: 9:37 AM PATIENT IDENTITY VERIFICATION COMPLETED USING TWO (2) IDENTIFIERS: Name and Date of confirmed by patient verbally. FALL SCREENING: Has the patient had 2 falls in the last year or 1 fall with injury or currently using an Ambulatory Assistive Device (Walker, Cane, Wheelchair, Crutches, etc.)? No PATIENT GENDER DATA: Assigned female at . status: : No status: NO. PATIENT RELEVANT IMPLANT DATA REVIEWED: Yes PATIENT PRESENTS WITH AN IMPLANTABLE OR ATTACHED HURL SHAKER: No RADIOLOGY DEPARTMENT: Ultrasound PERIPHERAL IV DATA: Not applicable SIGNED BY: TECHNOLOGIST Lauryn September 30, 2024 9:37 AM [facility] 07-23-2024 Telephone encounter Note We have been unable to reach your patient to schedule their testing. Test Name: Transthoracic echocardiogram (TTE) complete with contrast, bubble, strain, and 3D PRN 1st attempt, via BUX message, 05/24/24 JS cancelled 05/22/24 2nd attempt -- voicemail cut off -- no message left -- 07/23/24 CLP [facility] [employer] 07-23-2024 Miscellaneous Notes We have been unable to reach your patient to schedule their testing. Test Name: Transthoracic echocardiogram (TTE) complete with contrast, bubble, strain, and 3D PRN 1st attempt, via BUX message, 05/24/24 JS cancelled 05/22/24 2nd attempt -- voicemail cut off -- no message left -- 07/23/24 CLP documented in this encounter [facility] [employer] 08-07-2023 Instructions Parvin Yang APRN.[facility] - 08/07/2023 11:45 AM EST [facility] PATIENT INFO ACUTE SINUSITIS OVERVIEW Rhinosinusitis, or more commonly sinusitis, is the medical term for inflammation (swelling) of the lining of the sinuses and nose. The sinuses are the hollow areas within the facial bones that are connected to the nasal openings. The sinuses are lined with mucous membranes, similar to the inside of the nose. There are two main types of sinusitis: acute and chronic. Acute sinusitis is inflammation that lasts for less than four weeks while chronic sinusitis lasts for more than 12 weeks. Acute sinusitis is common, affecting approximately one million people per year in the [place]. ACUTE SINUSITIS CAUSES The most common cause of acute sinusitis is a viral infection associated with the common cold. Bacterial sinusitis occurs much less commonly, in only 0.5 to 2 percent of cases, usually as a complication of viral sinusitis. Because antibiotics are effective only against bacterial, and not viral, infections, most people do not need antibiotics for acute sinusitis. ACUTE SINUSITIS SYMPTOMS Symptoms of acute sinusitis include: Nasal congestion or blockage Thick, yellow to green discharge from the nose Pain in the teeth Pain or pressure in the face that is worse when bending forwards Other acute sinusitis symptoms can include fever (temperature greater than 100.4 F or 38 C), fatigue, cough, difficulty or inability to smell, ear pressure or fullness, headache, and bad breath. In most cases, these symptoms develop over the course of one day and begin to improve within seven to 10 days. DO I NEED TO BE EXAMINED? It is difficult to know if you have a viral or bacterial sinus infection initially. However, most people with a viral infection improve without treatment within seven to 10 days after symptoms begin. Bacterial sinusitis also sometimes improves without treatment, although it can also worsen and require treatment. If one or more of the following bothersome symptoms last more than seven days, an examination by a healthcare provider is recommended: Thick, yellow to green discharge from the nose Face or tooth pain, especially if it is only on one side Tenderness over the maxillary sinuses (located on the left and right side of the nose, inside the cheekbones) Symptoms that initially improve and then worsen When to seek immediate help -- If you have one or more of the following symptoms, you should seek medical attention immediately (even if symptoms have been present for less than seven days): High fever (>102.5 F or 39.2 C) Sudden, severe pain in the face or head Double vision or difficulty seeing Confusion or difficulty thinking clearly Swelling or redness around one or both eyes Stiff neck, shortness of breath ACUTE SINUSITIS TREATMENT Initial treatment of a sinus infection aims to relieve symptoms since almost everyone will improve within the first seven to 10 days. Experts recommend avoiding antibiotics during this time unless there is clear evidence of a severe bacterial infection. Initial treatment Pain relief -- Non-prescription pain medications, such as acetaminophen (eg, Tylenol ) or ibuprofen (eg, Motrin , Advil ) are recommended for pain. Nasal irrigation and saline sprays -- Rinsing the nose with a salt-water (saline) solution is called nasal irrigation or nasal lavage. Saline is also available in a standard nasal spray, although this is not as effective as using larger amounts of water in an irrigation. Nasal irrigation is particularly useful for treating drainage down the back of the throat, sneezing, nasal dryness, and congestion. The treatment helps by rinsing out allergens and irritants from the nose. Saline rinses also clean the nasal lining and can be used before applying sprays containing medications, to get a better effect from the medication. Nasal lavage with warmed saline can be performed as needed, once per day, or twice daily for increased symptoms. Nasal lavage carries few risks when performed correctly. Saline nasal sprays and irrigation kits can be purchased [id number]. Saline mixes can also be purchased or patients can make their own solution. A variety of devices, including bulb syringes, Neti pots, and bottle sprayers, may be used to perform nasal lavage; instructions for nasal lavage are provided in the table. At least 200 mL (about 3/4 cup) of fluid is recommended for each nostril. Nasal decongestants -- Nasal decongestant sprays, including oxymetazoline (Afrin ) and phenylephrine (Conrad-synephrine ) can be used to temporarily treat congestion. However, these sprays should not be used for more than two to three days due to the risk of rebound congestion (when the nose is congested constantly unless the medication is used repeatedly). Other treatments -- Other treatments for congestion, such as oral antihistamines (such as diphenhydramine/Benadryl ) or zinc supplements are not proven to improve symptoms of sinusitis and can have unwanted side effects. Medications to thin secretions (such as guaifenesin) may help to clear mucus. Secondline treatment -- If symptoms have not improved in seven to ten days, you should arrange for medical evaluation. You may need further treatment. Nasal glucocorticoids -- Nasal glucocorticoids (steroids delivered by a nasal spray) can help to reduce swelling inside the nose, usually within two to three days. These drugs have few side effects and dramatically relieve symptoms in most people. There are a number of nasal glucocorticoids available by prescription. These drugs are all effective, but differ in how frequently they must be used and how much they cost. You may need to use a nasal decongestant for a few days before starting a nasal glucocorticoid to reduce nasal swelling; this will allow the nasal glucocorticoid to reach more areas of the nasal passages Do I need an antibiotic? -- If bothersome symptoms of sinusitis persist for 10 or more days, it is possible that you have bacterial sinusitis. The need for antibiotics depends upon the severity of your symptoms. Mild symptoms -- There are two possible treatment options if you have mild sinusitis symptoms: treat with antibiotics or continue to watch and wait for one week. Watching and waiting is a reasonable option because up to 75 percent of people with bacterial sinusitis improve within one month without antibiotics. During the watch and wait period, treatments to improve symptoms are recommended. If symptoms worsen or do not improve after watching and waiting, treatment with an antibiotic is usually recommended. Treatments to relieve symptoms are recommended while using antibiotics. Moderate or severe symptoms -- Most healthcare providers will prescribe an antibiotic for moderate to severe symptoms (temperature >38.3 C or 101 F and/or severe pain that interferes with usual activities). Treatments to relieve symptoms are also recommended during antibiotic treatment. One of the least expensive and most effective antibiotics for sinusitis is amoxicillin. An alternate antibiotic will be prescribed if you are allergic to penicillin. Regardless of which antibiotic is prescribed, it is important to follow the dosing instructions carefully and to finish the entire course of treatment. Taking the medication less often than prescribed or stopping the medication early can lead to complications, such as a recurrent infection. What if I do not improve with treatment? -- If you do not improve or worsen after a course of antibiotics, you should be re-examined. In some cases, symptoms of sinusitis improve but then recur. This is usually because the infection was not completely eliminated by the antibiotic. An alternate antibiotic, extended antibiotic treatment, and/or further testing may be recommended, depending upon your individual situation. documented in this encounter [facility] 08-07-2023 History of Present illness Narrative Express Care Visit SUBJECTIVE Stephany ROMERO is a 33 year old female who presents with 2 week(s)of symptoms that are worsening. Symptoms include: Fever (?100.4F): temp high at home = 100.1. Chills: Yes Cough: Yes - productive Shortness of breath: Yes or Wheezing: Yes, Pt denies hx of asthma, COPD, smoking or pneumonia. Fatigue: Yes Muscle aches: Yes Headache: Yes Sore throat: Yes Ear pain: Yes - bilateral Nasal congestion: Yes or Rhinorrhea: Yes Nausea: No or Vomiting: No Diarrhea: No OTC meds/remedies that patient has tried: acetaminophen and ibuprofen. Exposures: Sick contacts? Yes - daughter had similar symptoms. Recent antibiotic use - Z pack 2 months ago for similar symptoms. No prescriptions on file. ALLERGIES No Known Allergies ACTIVE PROBLEM LIST Related Carpal Tunnel Syndrome, Antepartum Post-Dates Left Ovarian Cyst Nexplanon in Place Anorgasmia of Female Deep Dyspareunia Physical Exam Vitals and nursing note reviewed. Constitutional: General: She is not in acute distress. Appearance: Normal appearance. She is not toxic-appearing. HENT: Right Ear: Ear canal normal. A middle ear effusion is present. Tympanic membrane is not erythematous or bulging. Left Ear: Ear canal normal. A middle ear effusion is present. Tympanic membrane is not erythematous or bulging. Nose: No mucosal edema. Right Sinus: No maxillary sinus tenderness or frontal sinus tenderness. Left Sinus: No maxillary sinus tenderness or frontal sinus tenderness. Mouth/Throat: Lips: Rodeo. No lesions. Mouth: Mucous membranes are moist. No oral lesions. Pharynx: Oropharynx is clear. Uvula midline. Posterior oropharyngeal erythema present. No pharyngeal swelling, oropharyngeal exudate or uvula swelling. Tonsils: No tonsillar exudate or tonsillar abscesses. Cardiovascular: Rate and Rhythm: Normal rate and regular rhythm. Heart sounds: Normal heart sounds. Pulmonary: Effort: Pulmonary effort is normal. No accessory muscle usage or respiratory distress. Breath sounds: Normal breath sounds and air entry. No decreased air movement. No decreased breath sounds, wheezing, rhonchi or rales. Lymphadenopathy: Head: Right side of head: Submandibular adenopathy present. Left side of head: Submandibular adenopathy present. Cervical: Cervical adenopathy present. Right cervical: Superficial cervical adenopathy present. No posterior cervical adenopathy. Left cervical: Superficial cervical adenopathy present. No posterior cervical adenopathy. Skin: General: Skin is warm and dry. Capillary Refill: Capillary refill takes less than 2 seconds. Neurological: Mental Status: She is alert and oriented to person, place, and time. BP 160/86 Pulse 100 Temp 36.9 C (98.5 F) Resp 18 Ht 157.5 cm (5' 2") Wt 53.4 kg (117 lb 13.4 oz) LMP 09/10/2020 SpO2 100% BMI 21.55 kg/m2 ASSESSMENT/PLAN: Encounter Diagnosis ICD-10-CM 1. Acute sinusitis, recurrence not specified, unspecified location J01.90 amoxicillin-clavulanate potassium (AUGMENTIN) 875-125 mg per tablet Benzonatate 200 mg capsule - The patient should also be given OTC decongestants prn, OTC cough and cold meds as needed, and warm salt water gargles, throat lozenges and/or OTC throat spray as needed for the first 5-7 days of treatment. - Supportive care with plenty of fluids, rest, and analgesia prn. - See patient instructions for further recommendations. - Pt education along with discharge instructions given to pt - Discussed Red Flag signs and when to go to ER. - Pt agreeable with plan and verbalizes understanding. - Follow up with PCP if symptoms worsen or do not improve in the next 2-3 days. Parvin Yang APRN.KEIRA documented in this encounter [facility] 12-15-2021 Note HNO ID: [id number] Author: Lacho Jones PA-C Service: ? Author Type: Physician Teletype Installer Type: Progress Notes Filed: 12/15/2021 10:52 AM Note Text: Rui ROMERO is a 31 year old female with no significant past medical history who presents to [facility] today for evaluation of sore throat, myalgias, and headache x 2 days. She states that she was exposed to COVID-19 yesterday. She does endorse having a fever of 101 ?F last night. Review of Systems Constitutional: Negative for chills, diaphoresis and fever. HENT: Positive for sore throat. Negative for congestion and ear pain. Eyes: Negative for discharge and redness. Respiratory: Negative for cough and shortness of breath. Musculoskeletal: Positive for myalgias. Negative for back pain. Skin: Negative for rash and wound. Neurological: Positive for headaches. All other systems reviewed and are negative. Objective BP 133/85 Pulse 71 Temp 37.1 ?C (98.8 ?F) Ht 157.5 cm (5' 2") Wt 60.8 kg (134 lb) LMP 09/10/2020 SpO2 99% BMI 24.51 kg/m? Physical Exam Vitals reviewed. Constitutional: General: She is not in acute distress. Appearance: Normal appearance. She is normal weight. She is not ill-appearing or toxic-appearing. Comments: The patient appears to be non-toxic, in no acute distress, and resting comfortably on a chair. HENT: Head: Normocephalic and atraumatic. Mouth/Throat: Mouth: Mucous membranes are moist. Pharynx: Oropharynx is clear. Uvula midline. Posterior oropharyngeal erythema present. No oropharyngeal exudate or uvula swelling. Tonsils: No tonsillar exudate. 1+ on the right. 1+ on the left. Eyes: Extraocular Movements: Extraocular movements intact. Cardiovascular: Rate and Rhythm: Normal rate and regular rhythm. Heart sounds: Normal heart sounds. No murmur heard. No friction rub. Pulmonary: Effort: Pulmonary effort is normal. No respiratory distress. Breath sounds: Normal breath sounds. No wheezing. Musculoskeletal: General: Normal range of motion. Cervical back: Normal range of motion. Skin: General: Skin is warm and dry. Findings: No erythema or rash. Neurological: General: No focal deficit present. Mental Status: She is alert and oriented to person, place, and time. Mental status is at baseline. Psychiatric: Mood and Affect: Mood normal. Behavior: Behavior normal. Thought Content: Thought content normal. Assessment and Plan Exam reveals postpharyngeal erythema with bilateral tonsillar edema. No tonsillar exudate noted. Rapid strep positive. Patient also tested for COVID-19 and influenza. Results discussed with patient. Patient counseled regarding suspected diagnosis and given a prescription for amoxicillin. Patient advised to follow-up with her primary care provider as needed for any new or worsening symptoms. ASSESSMENT/PLAN: 1. Strep throat - ICD9: 034.0, ICD10: J02.0 (primary diagnosis) - AMOXICILLIN 500 MG CAPSULE 2. Sore throat - ICD9: 462, ICD10: J02.9 - COVID WITH FLUA+B, ROUTINE 3. Myalgias - ICD9: 729.1, ICD10: M79.10 - COVID WITH FLUA+B, ROUTINE 4. Acute nonintractable headache, unspecified headache type - ICD9: 784.0, ICD10: R51.9 - COVID WITH FLUA+B, ROUTINE Medical Decision Making: Problems: Moderate: Acute illness with systemic symptoms Risk: Minimal: Minimal risk from testing/treatment Moderate: Drug management Medical Decision Making Level: 4 - Moderate I spent a total of 20 minutes on the date of the service which included preparing to see the patient, [id number] patient care, completing clinical documentation, performing a medically appropriate examination, counseling and educating the patient/family/caregiver and ordering medications, tests, or procedures. [facility] 12-15-2021 Influenza virus A and B RNA and SARS-CoV-2 (COVID-19) N gene panel REY+probe (Resp) COVID 19 RESULT: SARS-CoV-2 (Agent of COVID-19) Not Detected by RT-PCR or equivalent method. delvis [id number] (MAGDI[employer])_EUA This test was developed and its performance characteristics determined by [facility]'s [facility] [place]. This test has been authorized by FDA under an Emergency Use Authorization (EUA). This test has been validated in accordance with the FDA's Guidance Document "Policy for Diagnostics Testing in Laboratories Certified to Perform High Complexity Testing under CLIA prior to Emergency use Authorization for Coronavirus Disease 2019 during the Public Health Emergency" issued on August 08, 2019. Test performed by [facility], [facility] [place], [facility] [place] [address]. INFLUENZA A PCR: Negative for Influenza A by RT-PCR INFLUENZA B PCR: Negative for Influenza B by RT-PCR [facility] Comment on above: Performed By: #### [id number] #### [facility] CLIA [id number] [address] [place] [address] [place] 10-21-2014 History of Past i llness Narrative Problem Noted Date Diagnosed Date Resolved Date Dyspareunia 10/21/2014 12/03/2014 Gestational hypertension w/o significant proteinuria in 3rd trimester 07/25/2013 12/03/2014 BV (bacterial vaginosis) 07/01/2013 Irregular uterine contractions 06/18/2013 07/25/2013 Supervision of other normal 12/01/2012 09/03/2013 documented as of this encounter (statuses as of 08/07/2023) [facility] Diagnosis Onset Date Resolution Status Contraceptive management acu te Menorrhagia with irregular cycle acute [facility] Work Phone: Evaluation note* Diagnosis Onset Date Resolution Status Menorrhagia with irregular cycle acute Vaginal odor noneactive [facility] Work Phone: Evaluation note* Diagnosis Onset Date Resolution Status IUD check up noneactive Pain in female pelvis noneac tive [facility] Work Phone: Evaluation note* Diagnosis Acute sinusitis, recurrence not specified, unspecified location- Primary documented in this encounter [facility]* Diagnosis Unspecified lump in the left breast, upper outer quadrant [facility] Unspecified lump in the left breast, upper outer quadrant [facility] Diagnosis Cardiac murmur, unspecified- Primary [facility] Diagnosis Closed nondisplaced fracture of distal phalanx of right thumb, initial encounter- Primary Sprain of metacarpophalangeal (MCP) joint of right thumb, initial encounter [facility] Pain of right thumb- Primary Pain in limb Closed nondisplaced fracture of distal phalanx of right thumb, initial encounter Sprain of metacarpophalangeal (MCP) joint of right thumb, initial encounter [facility] MRI/CT (Routine) - Closed Specialty Diagnoses / Procedures Referred By Contac t Referred To Contact Radiology / [facility] Diagnoses Unspecified abdominal pain Nausea Abnormal weight loss Nausea R10.9 Abdominal pain R11.0 Nausea R63.4 Weight loss R11.[address] ABD & PELVIS W/CONTRAST CT WWO ABD1 400 Svetlana Gage MD [address] [place] [address] Phone: tel: fax: [facility] [address] [place] [address] Phone: tel: Referral ID Status Reason Start Date Expiration Date Visits Re quested Visits Authorized [id number] Closed 10/02/2024 06/09/2025 1 1 [facility] Summary Purpose Family History No Family History Records Found Relationship Condition Age at Onset Recorded Date/T fatmata grandmother Malignant neoplasm of breast Unknown father Cardiac disease Unknown Advance Directives No Advanced Directives Records Found Advance Directive Response Recorded Date/ Time Living Will No February 27, 2022 9:19am 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 odor Reason for Visit Menorrhagia with irr egular cycle Vaginal odor Chief Complaint Pelvic pain Reason for Visit IUD check up Pain in female pelvis Additional Source Comments INFORMATION SOURCE (unrecogn ized section and content) DATE CREATED AUTHOR 12/02/2017 [facility] DATE CREATED AUTHOR AUTHOR'S ORGANIZ ATION 12/03/2017 [facility] DATE CREATED AUTHOR AUTHOR'S ORGANIZ ATION 04/30/2020 [facility] DATE CREATED AUTHOR AUTHOR'S ORGANIZ ATION 12/15/2021 [facility] DATE CREATED AUTHOR AUTHOR'S ORGANIZ ATION 04/24/2023 [facility] DATE CREATED AUTHOR AUTHOR'S ORGANIZ ATION 07/26/2024 [facility] DATE CREATED AUTHOR AUTHOR'S ORGANIZ ATION 03/18/2025 [facility] DATE CREATED AUTHOR AUTHOR'S ORGANIZ ATION 04/20/2025 [facility] Care Teams (unrecognized sec tion and content) Team Status: Active Member Role Status Dates Dr. Shira Sims , DO Family Provider Active Dr. Shira Sims , DO Primary Care Provider Active Team Status: Inactive Member Role Status Dates Dr. Shira Sims , DO Primary Care Provider, Referri ng Provider Active Kylie Perez CARGO BROKER, CARGO BROKER-C Attending Provider Active Team Status: Inactive Member Role Status Dates Dr. 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 Relationship Specialty Start Date End Date Maykel Aj MD [address] [phone] PCP - General 09/20/14 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 Relationship Specialty Start Date End Date Maykel Aj MD [address] [facility] [address] [place] [phone] PCP - General 09/20/14 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 Relationship Specialty Start Date End Date Shira Sims MD [address] [facility] [address] [place] [address] PCP - General Family Medicine 06/18/17 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 Relationship Specialty Start Date End Date Shira Sims MD [address] [facility] [address] [place] [address] PCP - General Family Medicine 06/18/17 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 Relationship Specialty Start Date End Date Shira Sims MD [address] [facility] [address] [place] [address] PCP - General Family Medicine 06/18/17 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 Relationship Specialty Start Date End Date Shira Sims MD [address] [facility] [address] [place] [address] PCP - General Family Medicine 06/18/17 Goals (unrecognized section and content) Goals may be documented in a n alternate section Source Comments (unrecognize d section and content) In the event this informatio n is protected by the Federal Confidentiality of Alcohol and Drug Abuse Patient Records regulations: The Federal rules restrict any use of the information to criminally investigate or prosecute any alcohol or drug abuse patient.[facility] the event this information is protected by the Federal Confidentiality of Alcohol and Drug Abuse Patient Records regulations: The Federal rules restrict any use of the information to criminally investigate or prosecute any alcohol or drug abuse patient.[facility] the event this information is protected by the Federal Confidentiality of Alcohol and Drug Abuse Patient Records regulations: The Federal rules restrict any use of the information to criminally investigate or prosecute any alcohol or drug abuse patient.[facility] the event this information is protected by the Federal Confidentiality of Alcohol and Drug Abuse Patient Records regulations: The Federal rules restrict any use of the information to criminally investigate or prosecute any alcohol or drug abuse patient.[facility] the event this information is protected by the Federal Confidentiality of Alcohol and Drug Abuse Patient Records regulations: The Federal rules restrict any use of the information to criminally investigate or prosecute any alcohol or drug abuse patient.[facility] Reason for Visit (unrecogniz ed section and content) Reason Comments Viral Syndrome Cough, did have body aches last week. Has been going on for a month Reason Onset Date Comments Test Scheduling 07/23/2024 Reason Comments New Fracture Reason Comments OT EVAL Specialty Diagnoses / Procedures Referred By Contact Referred To Contact Occupational Therapy / OCCUPATIONAL THERAPY Diagnoses Closed nondisplaced fracture of distal phalanx of right thumb, initial encounter [S62.524A] Sprain of metacarpophalangeal (MCP) joint of right thumb, initial encounter [S63.641A] Procedures NEW RS OT HAND Jailene Luna PA-C [address] [place] [address] Phone: tel:[phone] fax:[phone] Lisa Stanley, OTR/L [address] [place] [address] Phone: tel:[phone] Referral ID Status Reason Start Date Expiration Date V isits Requested Visits Authorized [id number] Authorized 02/03/2025 06/09/2025 40 40 FOR RECORDS PERTAINING TO PATIENTS WHO ARE OR HAVE BEEN ENROLLED IN A CHEMICAL DEPENDENCY/SUBSTANCEABUSE PROGRAM, SOME INFORMATION MAY BE OMITTED. This clinical summary was aggregated from multiple sources. Caution should be exercised in using it in the provision of clinical care. This summary normalizes information from multiple sources, and as a consequence, information in this document may materially change the coding, format and clinical context of patient data. In addition, data may be omitted in some cases. CLINICAL DECISIONS SHOULD BE BASED ON THE PRIMARY CLINICAL RECORDS. [facility]. provides no warranty or guarantee of the accuracy or completeness of information in this document.
[2025-04-30 05:07] LABS: Chlamydia By Nucleic Acid AMP Negative (Negative); Gonococcus By Nucleic Acid AMP Negative (Negative)
[2025-04-30 12:09] LABS: HPV APTIMA, High Risk Negative (Negative)
== END | disposition home or self-care (01) ==
LOC: LABSPEC 15:08
PROVIDERS: PCP Family Medicine; Visit Provider Nurse Practitioner Women's Health
DX: Z11.3 Encounter for screening for infections with a predominantly sexual mode of transmission (principal); Z12.4 Encounter for screening for malignant neoplasm of cervix; N89.8 Other specified noninflammatory disorders of vagina
CPT/HCPCS: 87070; 87205; 87491; 87591; 87624; 88175; G0145